=== PATIENT | male | born 1970 | race Asian ===

== ENCOUNTER 2018-05-05 01:27 | Emergency (ER) | payer BC, OTHER ==
--- OUTSIDE RECORDS SUMMARY | 2018-05-05 01:30 | XMS REPORT ---
:1970 Author Organization eClinicalWorks Care Team Providers Name Role Phone Jesus Deluna Provider Role Unavailable Allergies No Known Allergies Problems Problem Type Condition Code Onset Dates Condition Status Problem Drug-induced constipation K59.03 Active Problem Iron deficiency anemia secondary to D50.8 Active inadequate dietary iron intake Problem Dry eyes, bilateral H04.123 Active Problem HTN (hypertension), benign I10 Active Problem GERD without esophagitis K21.9 Active Problem Anemia, unspecified type D64.9 Active Medications No Known Medications Results No Known Results Summary Purpose eClinicalWorks Submission
--- OUTSIDE RECORDS SUMMARY | 2018-05-05 01:30 | XMS REPORT ---
:1970 Author Organization eClinicalWorks Care Team Providers Name Role Phone Mikie Jesus Provider Role Unavailable Allergies No Known Allergies Problems Problem Type Condition Code Onset Dates Condition Status Assessment HTN (hypertension), benign I10 Active Assessment Drug-induced constipation K59.03 Active Assessment GERD without esophagitis K21.9 Active Assessment Dry eyes, bilateral H04.123 Active Problem Drug-induced constipation K59.03 Active Problem Iron deficiency anemia secondary to D50.8 Active inadequate dietary iron intake Problem Dry eyes, bilateral H04.123 Active Problem HTN (hypertension), benign I10 Active Assessment Iron deficiency anemia secondary to D50.8 Active inadequate dietary iron intake Problem GERD without esophagitis K21.9 Active Problem Anemia, unspecified type D64.9 Active Medications Medication Code Code Instructions Start End Status Dosage System Date Date Amitiza [facility] 72861925852 8 MCG Orally MayOct 13, Active 1 capsule Twice a day 2017 with food Amlodipine ND 45245404830 5 MG Orally Once Active 1 tablet Besylate a day Ferrous ND 78407704210 325 (65 Fe) MG May Active 1 tablet Sulfate Orally BID 2017 Omeprazole ND 69747029962 40 MG Orally Active 1 capsule Once a day Restasis ND 61632939880 0.05 % MayOct 13, Active 1 drop into Ophthalmic Twice 2017 2018 affected a day eye Results Name Result Date Reference Range Unit Abnormality Flag CBC W/AUTO DIFF Summary Purpose eClinicalWorks Submission
--- OUTSIDE RECORDS SUMMARY | 2018-05-05 01:30 | XMS REPORT | Clinical Summary ---
:1970 Author Organization [employer] Address [address] [place] [address] Care Team Providers Name Role Phone Jesus Deluna Primary Care Provider Allergies No Known Allergies Medications Medication Sig Dispensed Refills Start Date End Date Status omeprazole (PriLOSEC) Take 40 mg by 0 Active 40 MG capsule mouth daily. amLODIPine (NORVASC) 5 Take 5 mg by 0 Active MG tablet mouth daily. MULTIVIT-MINERALS/FA/LY Take 1 tablet by 0 Active COPENE (ONE-A-DAY MEN'S mouth daily. MULTIVITAMIN ORAL) amLODIPine (NORVASC) 5 Take 5 mg by 0 Active mg tablet mouth daily. Active Problems Problem Noted Date SBO (small bowel obstruction) 11/27/2017 Small bowel obstruction 01/06/2016 Encounters Date Type Specialty Care Team Description 11/26/2017 - Hospital Encounter General Surgery Soy Samaniego SBO (small bowel obstruction) ([facility]) (Primary Dx); 11/28/2017 MD Antoine Generalized abdominal pain; Rahman, Non-intractable vomiting with nausea, unspecified vomiting type Mynor Victoria MD after 05/04/2017 Immunizations Name Dates Previously Given Next Due INFLUENZA QUAD PF 01/24/2016 Social History Tobacco Use Types Packs/Day Years Used Date Never Smoker Smokeless Tobacco: Never Used Alcohol Use Drinks/Week oz/Week Comments No social Sex Assigned at Date Recorded Not on file Job Start Date Occupation Industry Not on file Not on file Not on file Travel History Travel Start Travel End No recent travel history available. Last Filed Vital Signs Vital Sign Reading Time Taken Blood Pressure 137/91 11/28/2017 12:07 PM CDT Pulse 75 11/28/2017 12:07 PM CDT Temperature 36.4 C (97.5 F) 11/28/2017 12:07 PM CDT Respiratory Rate 17 11/28/2017 12:07 PM CDT Oxygen Saturation 97% 11/28/2017 12:07 PM CDT Inhaled Oxygen Concentration - - Weight - - Height 175.3 cm (5' 9") 11/26/2017 9:57 PM CDT Body Mass Index - - Plan of Treatment Health Maintenance Due Date Last Done Comments INFLUENZA VACCINE 09/20/2017 01/24/2016 COLON CANCER SCREENING 2018 SHINGLES VACCINES (#1) 2018 Implants Implanted Type Area Publicity Writer Device Shelf Model / Identifier Expiration Serial / Date Lot Mesh Hrnia Rpr Sepramesh 8x12in Rectngl Cmpst [employer]pe [employer] - [id number] Surgical N/A: [employer] 03/19/2017 [id number] / Implanted: 01/08/2016 (Quantity not on file) Mesh or Abdomen, / Tissue Middle [id number] Barrier Quadrant/No Products n Specific Procedures Procedure Name Priority Date/Time Associated Comments Diagnosis ESTIMATED GFR Routine 11/28/2017 4:00 Results for this AM CDT procedure are in the results section. PHOSPHORUS LEVEL Routine 11/28/2017 4:00 Results for this AM CDT procedure are in the results section. MAGNESIUM LEVEL Routine 11/28/2017 4:00 Results for this AM CDT procedure are in the results section. BASIC METABOLIC PANEL Routine 11/28/2017 4:00 Results for this AM CDT procedure are in the results section. URINALYSIS SCREEN AND Routine 11/27/2017 12:55 Results for this MICROSCOPY, WITH PM CDT procedure are in REFLEX TO CULTURE the results section. URINE CULTURE Routine 11/27/2017 12:55 Results for this PM CDT procedure are in the results section. XR ABDOMEN 2 VW AP W STAT 11/27/2017 9:45 Results for this UPRIGHT AND/OR AM CDT procedure are in DECUBITUS the results section. CT ABDOMEN PELVIS W STAT 11/27/2017 1:26 Results for this CONTRAST AM CDT procedure are in the results section. LACTIC ACID LEVEL, Timed 11/26/2017 11:39 Results for this SEPSIS - NOW AND PM CDT procedure are in REPEAT 2X EVERY 3 the results HOURS section. HC COMPLETE BLD COUNT STAT 11/26/2017 11:25 Results for this W/AUTO DIFF PM CDT procedure are in the results section. ESTIMATED GFR STAT 11/26/2017 10:01 Results for this PM CDT procedure are in the results section. LIPASE LEVEL STAT 11/26/2017 10:01 Results for this PM CDT procedure are in the results section. COMPREHENSIVE STAT 11/26/2017 10:01 Results for this METABOLIC PANEL PM CDT procedure are in the results section. after 05/04/2017 Results Estimated GFR (11/28/2017 4:00 AM CDT)Only the most recent of2 resultswithin the time period is included. Estimated GFR >=90 mL/min/1.73 m2 [facility] DEPARTMENT OF Comment: PATHOLOGY AND GENOMIC CatergoryUnitsInterpretation MEDICINE G1 >=90 Normal or high G2 60-89Mildly decreased E5q45-53Hrsric to moderately decreased O8q63-04Cblshrfmlv to severely decreased G4 15-29Severely decreased G5 <15Kidney failure The eGFR was calculated using the Chronic Kidney Disease Epidemiology Collaboration (CKD-EPI) equation. Interpretation is based on recommendations of the National Kidney Foundation-Kidney Disease Outcomes Quality Initiative (NKF-KDOQI) published in 2014. Specimen Plasma specimen Performing Organization Address City/[facility] Phone Number [facility] DEPARTMENT OF PATHOLOGY AND [address] [place] [address] [facility] Phosphorus level (11/28/2017 4:00 AM CDT) Phosphorus 4.2 2.4 - 4.5 mg/dL [facility] DEPARTMENT OF PATHOLOGY AND GENOMIC MEDICINE Specimen Plasma specimen Performing Organization Address City/[facility] Phone Number [facility] DEPARTMENT OF PATHOLOGY AND [address] [place] [address] [facility] Magnesium level (11/28/2017 4:00 AM CDT) Magnesium 2.1 1.6 - 2.6 mg/dL [facility] DEPARTMENT OF PATHOLOGY AND GENOMIC MEDICINE Specimen Plasma specimen Performing Organization Address [facility] Phone Number [facility] DEPARTMENT OF PATHOLOGY AND [address] [place] [address] [facility] MEDICINE Basic metabolic panel (11/28/2017 4:00 AM CDT) Sodium 137 135 - 148 mEq/L [facility] DEPARTMENT OF PATHOLOGY AND GENOMIC MEDICINE Potassium 3.6 3.5 - 5.0 mEq/L [facility] DEPARTMENT OF PATHOLOGY AND GENOMIC MEDICINE Chloride 101 98 - 112 mEq/L [facility] DEPARTMENT OF PATHOLOGY AND GENOMIC MEDICINE CO2 24 24 - 31 mEq/L [facility] DEPARTMENT OF PATHOLOGY AND GENOMIC MEDICINE Anion gap 12@ANIO 7 - 15 mEq/L [facility] DEPARTMENT OF PATHOLOGY AND GENOMIC MEDICINE BUN 7 6 - 20 mg/dL [facility] DEPARTMENT OF PATHOLOGY AND GENOMIC MEDICINE Creatinine 0.77 0.70 - 1.20 mg/dL [facility] DEPARTMENT OF PATHOLOGY AND GENOMIC MEDICINE Glucose 99 65 - 99 mg/dL [facility] DEPARTMENT OF PATHOLOGY AND GENOMIC MEDICINE Calcium 9.3 8.3 - 10.2 mg/dL [facility] DEPARTMENT OF PATHOLOGY AND GENOMIC MEDICINE Specimen Plasma specimen Performing Organization Address City/State/[facility] Phone Number [facility] DEPARTMENT OF PATHOLOGY AND [address] [place] [address] [facility] Urinalysis screen and microscopy, with reflex to culture (11/27/2017 12:55 PM CDT) Specimen site Random void [facility] DEPARTMENT OF PATHOLOGY AND GENOMIC MEDICINE Color, UA Straw [facility] DEPARTMENT OF PATHOLOGY AND GENOMIC MEDICINE Appearance, UA Clear [facility] DEPARTMENT OF PATHOLOGY AND GENOMIC MEDICINE Specific gravity, UA 1.008 1.001 - 1.035 [facility] DEPARTMENT OF PATHOLOGY AND GENOMIC MEDICINE pH, UA 7.0 5.0 - 8.5 [facility] DEPARTMENT OF PATHOLOGY AND GENOMIC MEDICINE Protein, UA Negative Negative [facility] DEPARTMENT OF PATHOLOGY AND GENOMIC MEDICINE Glucose, UA Negative Negative [facility] DEPARTMENT OF PATHOLOGY AND GENOMIC MEDICINE Ketones, UA Negative Negative [facility] DEPARTMENT OF PATHOLOGY AND GENOMIC MEDICINE Bilirubin, UA Negative Negative [facility] DEPARTMENT OF PATHOLOGY AND GENOMIC MEDICINE Blood, UA Negative Negative [facility] DEPARTMENT OF PATHOLOGY AND GENOMIC MEDICINE Nitrite, UA Negative Negative [facility] DEPARTMENT OF PATHOLOGY AND GENOMIC MEDICINE Urobilinogen, UA <2.0 <2.0 [facility] DEPARTMENT OF PATHOLOGY AND GENOMIC MEDICINE Leukocyte esterase, UA Negative Negative [facility] DEPARTMENT OF PATHOLOGY AND GENOMIC MEDICINE WBC, UA None seen 0 - 1 /HPF [facility] DEPARTMENT OF PATHOLOGY AND GENOMIC MEDICINE RBC, UA None seen 0 - 5 /HPF [facility] DEPARTMENT OF PATHOLOGY AND GENOMIC MEDICINE Bacteria, UA None seen None seen [facility] DEPARTMENT OF PATHOLOGY AND GENOMIC MEDICINE Yeast, UA None seen [facility] DEPARTMENT OF PATHOLOGY AND GENOMIC MEDICINE Yeast with pseudohyphae, UA None seen [facility] DEPARTMENT OF PATHOLOGY AND GENOMIC MEDICINE Specimen Urine Performing Organization Address City/State/Zipcode Phone Number [facility] DEPARTMENT OF PATHOLOGY AND [address] [place] [address] [facility] Urine culture (11/27/2017 12:55 PM CDT) Urine culture SEE COMMENTComment: Bacteriuria [facility] DEPARTMENT OF PATHOLOGY screen negative. AND GENOMIC MEDICINE Performing Organization Address [facility]ode Phone Number [facility] DEPARTMENT OF PATHOLOGY AND [address] [place] [address] GENOMIC MEDICINE XR Abdomen 2 Vw Ap W Upright And/Or Decubitus (11/27/2017 9:45 AM CDT) Narrative Performed At Study:XR ABDOMEN 2 VW AP W UPRIGHT AND OR DECUBITUS [facility] History:Abd painunspecified, SBO COMPARISON:None. IMPRESSION: 4 views of the abdomen. No bowel distention or free air. Contrast is seen within the urinary bladder and renal parenchyma bilaterally. Bones without acute abnormality. [id number] Procedure Note Hm Interface, Radiology Results Incoming - 11/27/2017 10:12 AM CDT Study:XR ABDOMEN 2 VW AP W UPRIGHT AND OR DECUBITUS History:Abd pain unspecified, SBO COMPARISON:None. IMPRESSION: 4 views of the abdomen. No bowel distention or free air. Contrast is seen within the urinary bladder and renal parenchyma bilaterally. Bones without acute abnormality. [id number] Performing Organization Address [facility] Phone Number [facility] [address] [place] [address] CT Abdomen Pelvis W Contrast (11/27/2017 1:26 AM CDT) Narrative Performed At CT ABDOMEN PELVIS W CONTRAST [facility] CLINICAL INDICATION: Abd distension, Abd painunspecified, Nauseavomiting, Hx of SBO TECHNIQUE:Multidetector CT imaging of the abdomen and pelvis was performed following the intravenous administration of iodinated contrast with multiplanar reconstructions.CT imaging was performed with iterative reconstruction technique and/or automated exposure control to reduce radiation dose. COMPARISON:None FINDINGS: LOWER THORAX:Clear. LIVER:Normal. BILIARY:Normal. SPLEEN:Normal. PANCREAS:Normal. ADRENALS:Normal. KIDNEYS:No mass or hydronephrosis. GI: There are small bowel sutures within the right lower quadrant, compatible with prior bowel resection and reanastomosis. There are multiple mildly dilated loops of small bowel within the right lower quadrant and midline lower abdomen without identification of a transition point. There is decompression of the distal loops of small bowel. There are no inflammatory changes of the bowel. VASCULAR:Unremarkable LYMPH NODES:No enlarged lymph nodes in the abdomen or pelvis. PELVIS:The urinary bladder is normal in appearance. BONES:There are no acute osseous abnormalities. OTHER:There is no ascites or pneumoperitoneum. IMPRESSION: Multiple mildly dilated loops of small bowel within the lower abdomen with decompression of the distal loops of small bowel, suggestive of a low-grade small bowel obstruction. A transition point is not identified. [facility]-[id number] Procedure Note Interface, Radiology Results Incoming - 11/27/2017 1:[address] ABDOMEN PELVIS W CONTRAST CLINICAL INDICATION: Abd distension, Abd pain unspecified, Nausea vomiting, Hx of SBO TECHNIQUE: Multidetector CT imaging of the abdomen and pelvis was performed following the intravenous administration of iodinated contrast with multiplanar reconstructions. CT imaging was performed with iterative reconstruction technique and/or automated exposure control to reduce radiation dose. COMPARISON: None FINDINGS: LOWER THORAX: Clear. LIVER: Normal. BILIARY: Normal. SPLEEN: Normal. PANCREAS: Normal. ADRENALS: Normal. KIDNEYS: No mass or hydronephrosis. GI: There are small bowel sutures within the right lower quadrant, compatible with prior bowel resection and reanastomosis. There are multiple mildly dilated loops of small bowel within the right lower quadrant and midline lower abdomen without identification of a transition point. There is decompression of the distal loops of small bowel. There are no inflammatory changes of the bowel. VASCULAR: Unremarkable LYMPH NODES: No enlarged lymph nodes in the abdomen or pelvis. PELVIS: The urinary bladder is normal in appearance. BONES: There are no acute osseous abnormalities. OTHER: There is no ascites or pneumoperitoneum. IMPRESSION: Multiple mildly dilated loops of small bowel within the lower abdomen with decompression of the distal loops of small bowel, suggestive of a low-grade small bowel obstruction. A transition point is not identified. [facility]-[id number] Performing Organization Address City/State/[place] Phone Number [facility] [address] [place] [address] Lactic acid level, SEPSIS - Now and repeat 2x every 3 hours (11/26/2017 11:39 PM CDT) Lactic acid 1.8 0.5 - 2.2 mmol/L [facility] DEPARTMENT OF PATHOLOGY AND GENOMIC MEDICINE Specimen Blood Performing Organization Address City/State/[facility] Phone Number [facility] DEPARTMENT OF PATHOLOGY AND [address] [place] [phone] [facility] CBC with platelet and differential (11/26/2017 11:25 PM CDT) WBC 8.80 4.50 - 11.00 k/uL [facility] DEPARTMENT OF PATHOLOGY AND GENOMIC MEDICINE RBC 4.63 4.40 - 6.00 m/uL [facility] DEPARTMENT OF PATHOLOGY AND GENOMIC MEDICINE HGB 10.9 (L) 14.0 - 18.0 g/dL [facility] DEPARTMENT OF PATHOLOGY AND GENOMIC MEDICINE HCT 37.0 (L) 41.0 - 51.0 % [facility] DEPARTMENT OF PATHOLOGY AND GENOMIC MEDICINE MCV 79.9 (L) 82.0 - 100.0 fL [facility] DEPARTMENT OF PATHOLOGY AND GENOMIC MEDICINE MCH 23.5 (L) 27.0 - 34.0 pg [facility] DEPARTMENT OF PATHOLOGY AND GENOMIC MEDICINE MCHC 29.5 (L) 31.0 - 37.0 g/dL [facility] DEPARTMENT OF PATHOLOGY AND GENOMIC MEDICINE RDW - SD 58.1 (H) 37.0 - 55.0 fL [facility] DEPARTMENT OF PATHOLOGY AND GENOMIC MEDICINE MPV 9.7 8.8 - 13.2 fL [facility] DEPARTMENT OF PATHOLOGY AND GENOMIC MEDICINE Platelet count 338 150 - 400 k/uL [facility] DEPARTMENT OF PATHOLOGY AND GENOMIC MEDICINE Nucleated RBC 0.00 /100 WBC [facility] DEPARTMENT OF PATHOLOGY AND GENOMIC MEDICINE Neutrophils 75.9 (H) 39.0 - 69.0 % [facility] DEPARTMENT OF PATHOLOGY AND GENOMIC MEDICINE Lymphocytes 15.2 (L) 25.0 - 45.0 % [facility] DEPARTMENT OF PATHOLOGY AND GENOMIC MEDICINE Monocytes 7.2 0.0 - 10.0 % [facility] DEPARTMENT OF PATHOLOGY AND GENOMIC MEDICINE Eosinophils 0.7 0.0 - 5.0 % [facility] DEPARTMENT OF PATHOLOGY AND GENOMIC MEDICINE Basophils 0.7 0.0 - 1.0 % [facility] DEPARTMENT OF PATHOLOGY AND GENOMIC MEDICINE Immature granulocytes 0.3Comment: 0.0 - 1.0 % [facility] DEPARTMENT OF "Immature PATHOLOGY AND GENOMIC granulocytes" MEDICINE (promyelocytes, myelocytes, metamyelocytes) Specimen Blood Performing Organization Address City/[facility]/Zipcode Phone Number [facility] DEPARTMENT OF PATHOLOGY AND [address] [place] [address] [facility] Lipase level (11/26/2017 10:01 PM CDT) Lipase 37 13 - 60 U/L [facility] DEPARTMENT OF PATHOLOGY AND GENOMIC MEDICINE Specimen Plasma specimen Performing Organization Address City/[facility] Phone Number [facility] DEPARTMENT OF PATHOLOGY AND [address] [place] [address] [facility] Comprehensive metabolic panel (11/26/2017 10:01 PM CDT) Sodium 136 135 - 148 mEq/L [facility] DEPARTMENT OF PATHOLOGY AND GENOMIC MEDICINE Potassium 4.3 3.5 - 5.0 mEq/L [facility] DEPARTMENT OF PATHOLOGY AND GENOMIC MEDICINE Chloride 98 98 - 112 mEq/L [facility] DEPARTMENT OF PATHOLOGY AND GENOMIC MEDICINE CO2 21 (L) 24 - 31 mEq/L [facility] DEPARTMENT OF PATHOLOGY AND GENOMIC MEDICINE Anion gap 17@ANIO (H) 7 - 15 mEq/L [facility] DEPARTMENT OF PATHOLOGY AND GENOMIC MEDICINE BUN 11 6 - 20 mg/dL [facility] DEPARTMENT OF PATHOLOGY AND GENOMIC MEDICINE Creatinine 0.79 0.70 - 1.20 mg/dL [facility] DEPARTMENT OF PATHOLOGY AND GENOMIC MEDICINE Glucose 108 (H) 65 - 99 mg/dL [facility] DEPARTMENT OF PATHOLOGY AND GENOMIC MEDICINE Calcium 9.7 8.3 - 10.2 mg/dL [facility] DEPARTMENT OF PATHOLOGY AND GENOMIC MEDICINE Protein 7.3 6.3 - 8.3 g/dL [facility] DEPARTMENT OF Comment: PATHOLOGY AND GENOMIC [place] 4.6-7.0 g/dL MEDICINE 1 week 4.4-7.6 g/dL 7 months-1year5.1-7.3 g/dL 1-2 years5.6-7.5 g/dL >3 years6.0-8.0 g/dL 18-150 6.3-8.3 g/dL Albumin 3.7 3.5 - 5.0 g/dL [facility] DEPARTMENT OF PATHOLOGY AND GENOMIC MEDICINE A/G ratio 1.0 0.7 - 3.8 [facility] DEPARTMENT OF PATHOLOGY AND GENOMIC MEDICINE Alkaline phosphatase 54 40 - 129 U/L [facility] DEPARTMENT OF PATHOLOGY AND GENOMIC MEDICINE AST 18 10 - 50 U/L [facility] DEPARTMENT OF PATHOLOGY AND GENOMIC MEDICINE ALT 22 5 - 50 U/L [facility] DEPARTMENT OF PATHOLOGY AND GENOMIC MEDICINE Total bilirubin 0.4 0.0 - 1.2 mg/dL [facility] DEPARTMENT OF PATHOLOGY AND GENOMIC MEDICINE Specimen Plasma specimen Performing Organization Address City/State/Zipcode Phone Number [facility] DEPARTMENT OF PATHOLOGY AND [address] [place] [address] GENOMIC MEDICINE after 05/04/2017 Insurance Payer Benefit Plan / Group Subscriber ID Type Phone Address BCBS BCBS CHOICE PPO/[employer]PL PPO xxxxxxxxxxxx PPO Advance Directives Patient has advance care planning documents on file. For more information, please contact:Colton Ibanez[address] [place] [address]
--- OUTSIDE RECORDS SUMMARY | 2018-05-05 01:30 | XMS REPORT ---
:1970 Author Organization eClinicalWorks Care Team Providers Name Role Phone Jesus Deluna Provider Role Unavailable Allergies, Adverse Reactions, Alerts Substance Reaction Event Type N.K.D.A. Info Not Available Non Drug Allergy Problems Problem Type Condition Code Onset Dates Condition Status Assessment Dry eyes, bilateral H04.123 Active Assessment GERD without esophagitis K21.9 Active Assessment HTN (hypertension), benign I10 Active Problem Drug-induced constipation K59.03 Active Problem Iron deficiency anemia secondary to D50.8 Active inadequate dietary iron intake Problem Dry eyes, bilateral H04.123 Active Assessment Iron deficiency anemia secondary to D50.8 Active inadequate dietary iron intake Assessment Drug-induced constipation K59.03 Active Problem GERD without esophagitis K21.9 Active Problem HTN (hypertension), benign I10 Active Medications Medication Code Code Instructions Start End Status Dosage System Date Date Ferrous [facility] 58825508336 325 (65 Fe) MG Active 1 tablet Sulfate Orally BID Omeprazole [facility] 16206135424 40 MG Orally Active 1 capsule Once a day Amlodipine [facility] 60550522364 5 MG Orally Once Active 1 tablet Besylate a day Restasis [facility] 21547212905 0.05 % Active 1 drop into Ophthalmic Twice affected a day eye Amitiza [facility] 54466192112 8 MCG Orally Active 1 capsule Twice a day with food Results No Known Results Summary Purpose eClinicalWorks Submission
--- OUTSIDE RECORDS SUMMARY | 2018-05-05 01:30 | XMS REPORT ---
:1970 Author Organization eClinicalWorks Care Team Providers Name Role Phone Jesus Deluna Provider Role Unavailable Allergies No Known Allergies Problems Problem Type Condition Code Onset Dates Condition Status Problem Drug-induced constipation K59.03 Active Problem Iron deficiency anemia secondary to D50.8 Active inadequate dietary iron intake Problem Dry eyes, bilateral H04.123 Active Problem GERD without esophagitis K21.9 Active Problem HTN (hypertension), benign I10 Active Medications No Known Medications Results No Known Results Summary Purpose eClinicalWorks Submission
[2018-05-05 02:14] LABS: Absolute Lymphocytes (CBC) 1.6 K/uL (0.7-4.9); Absolute Monocytes 0.6 K/uL (0.1-1.3); Absolute Neutrophil 7.1 K/uL (1.8-8.0); Basophils % 0.3 % (0-1.3); Eosinophils % 0.7 % (0-4.4); Lymphocytes % 16.6 % (15.3-44.8); Monocytes % 6.2 % (3.3-12.3); RBC Red Blood Cell Count 4.52 M/uL (4.33-5.43)
[2018-05-05] MEDS ORDERED: NA CHLORIDE 0.9% 1,000 ML ONE (02:21)
[2018-05-05] MEDS ORDERED: ONDANSETRON 4 MG/2 ML VIAL ONE (02:21)
[2018-05-05 02:27] LABS: ALT/SGPT 23 U/L (12-78); AST/SGOT 11 U/L (15-37); Albumin 3.8 g/dL (3.4-5.0); Alkaline Phosphatase 58 U/L (45-117); BUN Blood Urea Nitrogen 10 mg/dL (7-18); Bicarbonate 25 mmol/L (21-32); Bilirubin Direct 0.2 mg/dL (0-0.2); Bilirubin Total 0.5 mg/dL (0.2-1.0); Glucose Level 123 mg/dL (74-106); Lipase 142 U/L (73-393); Potassium 3.5 mmol/L (3.5-5.1); Protein, Total 7.6 g/dL (6.4-8.2); Sodium Level 138 mmol/L (136-145)
[2018-05-05] MEDS ORDERED: PROMETHAZINE 25 MG/ML VIAL ONE (02:39)
--- NOTE | 2018-05-05 04:39 | ER ---
Nurse's Notes [facility] Name: Kayy Carvajal Age: 48 yrs Sex: Male : 1970 Arrival Date: 05/05/2018 Time: 01:28 Bed 5 Private MD: Diagnosis: Abdominal and pelvic pain;Early SBO Presentation: 05/05 01:35 Presenting complaint: Patient states: that he his having abd pain that is worse in his fc right lower quad. Has not eaten or drank since 1100. Is having nausea and vomiting. Feels very dehydrated. Denies any diarrhea. Hx of small bowel obstructions x 4 with surg. Transition of care: patient was not received from another setting of care. Onset of symptoms was May 04, 2018. Risk Assessment: Do you want to hurt yourself or someone else? Patient reports no desire to harm self or others. Initial Sepsis Screen: Does the patient meet any 2 criteria? No. Patient's initial sepsis screen is negative. Does the patient have a suspected source of infection? No. Patient's initial sepsis screen is negative. Care prior to arrival: None. 01:35 Method Of Arrival: Ambulatory 01:35 Acuity: HOLLEY 3 fc Historical: - Allergies: 01:51 No Known Allergies; fc - Home Meds: 01:51 omeprazole 40 mg Oral cpDR 1 cap once daily [Active]; amlodipine 5 mg tab 1 tab once fc daily [Active]; - PMHx: 01:51 Hypertension; GERD; bowel obstruction; fc - PSHx: 01:51 Bowel resection; Hernia repair; Appendectomy; fc - Immunization history:: Last tetanus immunization: up to date Flu vaccine is not up to date. - Social history:: Smoking status: Patient/guardian denies using tobacco, Patient/guardian denies using alcohol, street drugs. - Ebola Screening: : Patient negative for fever greater than or equal to 101.5 degrees Fahrenheit, and additional compatible Ebola Virus Disease symptoms Patient denies exposure to infectious person Patient denies travel to an Ebola-affected area in the 21 days before illness onset. Screenin:49 Abuse screen: Denies threats or abuse. Nutritional screening: No deficits noted. fc Tuberculosis screening: No symptoms or risk factors identified. Fall Risk None identified. Assessment: 01:56 General: Appears uncomfortable, Behavior is calm, cooperative. Pain: Complains of pain ak1 in right lower quadrant. Neuro: No deficits noted. Cardiovascular: No deficits noted. Respiratory: No deficits noted. GI: Abdomen is round Bowel sounds present X 4 quads. Abdomen is tender to palpation in right lower quadrant. : No signs and/or symptoms were reported regarding the genitourinary system. EENT: No signs and/or symptoms were reported regarding the EENT system. Derm: No signs and/or symptoms reported regarding the dermatologic system. Musculoskeletal: No signs and/or symptoms reported regarding the musculoskeletal system. 02:59 Reassessment: Patient appears in no apparent distress at this time. Patient and/or jd3 family updated on plan of care and expected duration. Pain level reassessed. Patient is alert, oriented x 3, equal unlabored respirations, skin warm/dry/pink. 03:56 Reassessment: pt stated Dr. Rahman at [facility] completed his last GI sx. pt refused ak1 NG tube at this time stating he is not having any pain. 05:40 Reassessment: Patient appears in no apparent distress at this time. Patient and/or jd3 family updated on plan of care and expected duration. Pain level reassessed. Patient is alert, oriented x 3, equal unlabored respirations, skin warm/dry/pink. report given to EMS for transfer. Vital Signs: 01:35 BP 155 / 106; Pulse 90; Resp 18; Temp 98.1(O); Pulse Ox 100% on R/A; Weight 72.57 kg fc (R); Height 5 ft. 8 in. (172.72 cm) (R); Pain 4/10; 02:28 BP 139 / 96; Pulse 85; Resp 18; Pulse Ox 97% on R/A; ak1 03:45 BP 145 / 92; Pulse 89; Resp 16; Pulse Ox 97% on R/A; ak1 04:40 BP 145 / 96; Pulse 80; Resp 16; Pulse Ox 97% on R/A; ak1 05:39 BP 131 / 99; Pulse 74; Resp 14 S; Pulse Ox 98% on R/A; jd3 01:35 Body Mass Index 24.33 (72.57 kg, 172.72 cm) ED Course: 01:28 Patient arrived in ED. am2 01:28 Prabhjot Celis MD is Attending Physician. kdr 01:35 Arm band placed on Patient placed in an exam room, on a stretcher. fc 01:48 Triage completed. fc 01:49 Patient has correct armband on for positive identification. Placed in gown. Bed in low fc position. Call light in reach. Pulse ox on. NIBP on. 01:49 No provider procedures requiring assistance completed. fc 02:00 Missed attempt(s): 22 gauge Bleeding controlled, band aid applied, catheter tip intact. oe 02:00 Inserted saline lock: 20 gauge in right hand, using aseptic technique. Blood collected. oe 02:05 Jayson Phillips, TERRY is Primary Nurse. jd3 02:45 Radiology exam delayed due to IV insertion attempt and/or patient not having nj appropriate IV at this time. 02:55 Inserted saline lock: 20 gauge in right forearm, using aseptic technique. jd3 03:[address] via stretcher. nj 03:18 CT Abd/Pelvis - W/Contrast In Process Unspecified. EDMS 05:38 Patient transferred, IV remains in place. jd3 Administered Medications: 02:21 Drug: Zofran 4 mg Route: IVP; Site: right hand; jd3 04:42 Follow up: Response: No adverse reaction ak1 02:22 Drug: NS 0.9% 1000 ml Route: IV; Rate: 1 bolus; Site: right hand; jd3 05:31 Follow up: Response: No adverse reaction; IV Status: Completed infusion; IV Intake: jd3 1000ml 02:42 Drug: Phenergan 12.5 mg Route: IVP; Site: right hand; jd3 04:42 Follow up: Response: No adverse reaction; Nausea is decreased ak1 05:14 Drug: Zosyn 3.375 grams Route: IVPB; Infused Over: 60 mins; Site: right hand; jd3 05:38 Follow up: IV Status: Infusion continued upon transfer jd3 05:30 Drug: vancoMYCIN 1 grams Route: IVPB; Infused Over: 2 hrs; Site: right forearm; jd3 05:39 Follow up: Response: No adverse reaction; IV Status: Infusion continued upon transfer jd3 Intake: 05:31 IV: 1000ml; Total: 1000ml. jd3 Outcome: 04:39 ER care complete, transfer ordered by . kdr 05:36 Transferred by ground EMS to [facility], Transfer form completed. X-rays jd3 sent w/ patient. Note: report given by Reyna RN to Tamia nurse for [id number] 05:36 Condition: stable 05:36 Instructed on the need for transfer, Demonstrated understanding of instructions. 05:51 Patient left the ED. jd3 Signatures: Dispatcher [employer] EDMS Prabhjot Celis MD MD kdr Chretien, Felicia, RN RN fc Krenek, Amber, RN RN ak1 Jack Alanis Orlando oe Moreno, Amanda am2 Davies, Jonathon, RN RN jd3
--- NOTE | 2018-05-05 04:39 | EDPHYS ---
Physician Documentation [facility] Name: Kayy Carvajal Age: 48 yrs Sex: Male : 1970 Arrival Date: 05/05/2018 Time: 01:28 Bed 5 Private MD: ED Physician Prabhjot Celis HPI: 05/05 02:09 This 48 yrs old Male presents to ER via Ambulatory with complaints of Abdominal kdr Pain. 02:09 The patient presents with abdominal pain right lower quadrant. Onset: The kdr symptoms/episode began/occurred suddenly, at 11:00. The symptoms do not radiate. Associated signs and symptoms: Pertinent positives: nausea and vomiting, diarrhea, Pertinent negatives: blood in stools, chest pain, headache, hematuria, palpitations, testicular pain, vomiting blood. The symptoms are described as achy, crampy, intermittent, vague, waxing/waning. Modifying factors: The symptoms are alleviated by nothing, the symptoms are aggravated by breathing deeply, movement, pressure, touching the area. Severity of pain: At its worst the pain was moderate just prior to arrival, in the emergency department the pain is unchanged. The patient has experienced similar episodes in the past, multiple times, today's symptoms are similar. The patient has not recently seen a physician. Historical: - Allergies: 01:51 No Known Allergies; fc - Home Meds: 01:51 omeprazole 40 mg Oral cpDR 1 cap once daily [Active]; amlodipine 5 mg tab 1 tab once fc daily [Active]; - PMHx: 01:51 Hypertension; GERD; bowel obstruction; fc - PSHx: 01:51 Bowel resection; Hernia repair; Appendectomy; fc - Immunization history:: Last tetanus immunization: up to date Flu vaccine is not up to date. - Social history:: Smoking status: Patient/guardian denies using tobacco, Patient/guardian denies using alcohol, street drugs. - Ebola Screening: : Patient negative for fever greater than or equal to 101.5 degrees Fahrenheit, and additional compatible Ebola Virus Disease symptoms Patient denies exposure to infectious person Patient denies travel to an Ebola-affected area in the 21 days before illness onset. ROS: 02:09 Constitutional: Negative for fever, chills, and weight loss, Eyes: Negative for injury, kdr pain, redness, and discharge, ENT: Negative for injury, pain, and discharge, Neck: Negative for injury, pain, and swelling, Cardiovascular: Negative for chest pain, palpitations, and edema, Respiratory: Negative for shortness of breath, cough, wheezing, and pleuritic chest pain, Back: Negative for injury and pain, : Negative for injury, bleeding, discharge, and swelling, MS/Extremity: Negative for injury and deformity, Skin: Negative for injury, rash, and discoloration, Neuro: Negative for headache, weakness, numbness, tingling, and seizure activity. Psych: Negative for depression, anxiety, suicide ideation, homicidal ideation, and hallucinations, Allergy/Immunology: Negative for hives, rash, and allergies, Endocrine: Negative for neck swelling, polydipsia, polyuria, polyphagia, and marked weight changes, Hematologic/Lymphatic: Negative for swollen nodes, abnormal bleeding, and unusual bruising. 02:09 Abdomen/GI: Positive for abdominal pain, nausea, vomiting, and diarrhea, abdominal cramps, Negative for constipation, dysphagia, hematemesis. Exam: 02:09 Constitutional: This is a well developed, well nourished patient who is awake, alert, kdr and in no acute distress. Head/Face: Normocephalic, atraumatic. Eyes: Pupils equal round and reactive to light, extra-ocular motions intact. Lids and lashes normal. Conjunctiva and sclera are non-icteric and not injected. Cornea within normal limits. Periorbital areas with no swelling, redness, or edema. Neck: Trachea midline, no thyromegaly or masses palpated, and no cervical lymphadenopathy. Supple, full range of motion without nuchal rigidity, or vertebral point tenderness. No Meningismus. Chest/axilla: Normal chest wall appearance and motion. Nontender with no deformity. No lesions are appreciated. Cardiovascular: Regular rate and rhythm with a normal S1 and S2. No gallops, murmurs, or rubs. Normal PMI, no JVD. No pulse deficits. Respiratory: Lungs have equal breath sounds bilaterally, clear to auscultation and percussion. No rales, rhonchi or wheezes noted. No increased work of breathing, no retractions or nasal flaring. Back: No spinal tenderness. No costovertebral tenderness. Full range of motion. Skin: Warm, dry with normal turgor. Normal color with no rashes, no lesions, and no evidence of cellulitis. MS/ Extremity: Pulses equal, no cyanosis. Neurovascular intact. Full, normal range of motion. Neuro: Awake and alert, GCS 15, oriented to person, place, time, and situation. Cranial nerves II-XII grossly intact. Motor strength 5/5 in all extremities. Sensory grossly intact. Cerebellar exam normal. Normal gait. Psych: Awake, alert, with orientation to person, place and time. Behavior, mood, and affect are within normal limits. 02:09 Abdomen/GI: Inspection: abdomen appears normal, Bowel sounds: active, all quadrants, diminished, in all quadrants, Palpation: soft, mild abdominal tenderness, in the right lower quadrant, mass, is not appreciated, rebound tenderness, is not appreciated, involuntary guarding, is not appreciated. Vital Signs: 01:35 BP 155 / 106; Pulse 90; Resp 18; Temp 98.1(O); Pulse Ox 100% on R/A; Weight 72.57 kg fc (R); Height 5 ft. 8 in. (172.72 cm) (R); Pain 4/10; 02:28 BP 139 / 96; Pulse 85; Resp 18; Pulse Ox 97% on R/A; ak1 03:45 BP 145 / 92; Pulse 89; Resp 16; Pulse Ox 97% on R/A; ak1 04:40 BP 145 / 96; Pulse 80; Resp 16; Pulse Ox 97% on R/A; ak1 05:39 BP 131 / 99; Pulse 74; Resp 14 S; Pulse Ox 98% on R/A; jd3 01:35 Body Mass Index 24.33 (72.57 kg, 172.72 cm) MDM: 02:09 Data reviewed: vital signs, nurses notes, lab test result(s), radiologic studies. kdr Counseling: I had a detailed discussion with the patient and/or guardian regarding: the historical points, exam findings, and any diagnostic results supporting the discharge/admit diagnosis, lab results, radiology results. 04:39 Patient medically screened. kdr 05/05 01:57 Order name: Basic Metabolic Panel; Complete Time: 03:06 kdr 05/05 01:57 Order name: CBC with Diff; Complete Time: 03:06 kdr 05/05 01:57 Order name: Creatinine for Radiology; Complete Time: 03:06 kdr 05/05 01:57 Order name: Hepatic Function; Complete Time: 03:06 kdr 05/05 01:57 Order name: Lipase; Complete Time: 03:06 kdr 05/05 02:08 Order name: CT Abd/Pelvis - W/Contrast kdr 05/05 01:57 Order name: IV Saline Lock; Complete Time: 02:00 kdr 05/05 01:57 Order name: Labs collected and sent; Complete Time: 02:21 kdr Administered Medications: 02:21 Drug: Zofran 4 mg Route: IVP; Site: right hand; jd3 04:42 Follow up: Response: No adverse reaction ak1 02:22 Drug: NS 0.9% 1000 ml Route: IV; Rate: 1 bolus; Site: right hand; jd3 05:31 Follow up: Response: No adverse reaction; IV Status: Completed infusion; IV Intake: jd3 1000ml 02:42 Drug: Phenergan 12.5 mg Route: IVP; Site: right hand; jd3 04:42 Follow up: Response: No adverse reaction; Nausea is decreased ak1 05:14 Drug: Zosyn 3.375 grams Route: IVPB; Infused Over: 60 mins; Site: right hand; jd3 05:38 Follow up: IV Status: Infusion continued upon transfer jd3 05:30 Drug: vancoMYCIN 1 grams Route: IVPB; Infused Over: 2 hrs; Site: right forearm; jd3 05:39 Follow up: Response: No adverse reaction; IV Status: Infusion continued upon transfer jd3 Disposition: 05/05/18 04:39 Transfer ordered to [facility]. Diagnosis are Abdominal and pelvic pain, Early SBO. - Reason for transfer: Higher level of care. - Accepting physician is Taoism. - Condition is Fair. - Problem is an acute exacerbation. - Symptoms have improved. Signatures: Dispatcher [employer] EDPrabhjot Hernandez MD MD kdr Renetta Polo RN RN fc Davies, Jonathon, RN RN jd3 Krenek, Amber RN ak1 Corrections: (The following items were deleted from the chart) 05:51 04:39 05/05/2018 04:39 Transfer ordered to [facility]. Diagnosis is jd3 Abdominal and pelvic pain; Early SBO. Reason for transfer: Higher level of care. Accepting physician is Taoism. Condition is Fair. Problem is an acute exacerbation. Symptoms have improved. kdr
[2018-05-05] MEDS ORDERED: VANCOMYCIN 1 GM/VIAL ONE (05:13)
[2018-05-05] MEDS ORDERED: PIPER/TAZO/NS 3.375gm 3.375 GM/100 ML BAG ONE (05:14)
[2018-05-05] MEDS ORDERED: NA CHLORIDE 0.9% 250 ML ONE (05:15)
[2018-05-05 05:56] VITALS: TEMP 98.1
[2018-05-05 06:00] VITALS: BP 131/99; O2SAT 98
--- NOTE | 2018-05-05 12:09 | RAD REPORT ---
EXAM DESCRIPTION: CT Abdomen and Pelvis With Intravenous Contrast CLINICAL HISTORY: The patient is 48 years old and is Male; ABD PAIN TECHNIQUE: Axial computed tomography images of the abdomen and pelvis with intravenous contrast. S agittal and coronal reformatted images were created and reviewed. This CT exam was performed using one or more of the following dose reduction techniques: automated exposure control, adjustment of t he mA and/or kV according to patient size, and/or use of iterative reconstruction technique. COMPARISON: No relevant prior studies available. FINDINGS: Lung bases: Unremarkable. No mass. No consolidation. ABDOMEN: Liver: There is a diffuse decrease in hepatic parenchymal density, consistent with fatty infiltr ation. Gallbladder and bile ducts: No calcified stones. No ductal dilation. Pancreas: No ductal dilation. No mass. Spleen: Unremarkable. Adrenals: Unremarkable. No mass. Kidneys and ureters: Unremarkable. No solid mass. No hydronephrosis. Stomach and bowel: The stomach is decompressed. The proximal small bowel is normal in caliber. S everal small bowel loops within the right abdomen are dilated and fluid-filled with a transition poin t at the level of anastomosis. The remainder of the small bowel is normal in caliber. The colon is fi lled with liquid stool. PELVIS: Appendix: No findings to suggest acute appendicitis. Bladder: Unremarkable. No mass. Reproductive: Unremarkable as visualized. ABDOMEN and PELVIS: Intraperitoneal space: Unremarkable. No free air. No significant fluid collection. Bones/joints: No acute fracture. Soft tissues: Midline abdominal incision is present. Vasculature: Unremarkable. No abdominal aortic aneurysm. Lymph nodes: Unremarkable. No enlarged lymph nodes. IMPRESSION: Findings suggestive of a small bowel ileus/developing obstruction with transition near t he anastomosis in the right abdomen. Electronically signed by: Soraya Greene MD 05/05/2018 3:32 AM CDT Due to temporary technical issues with the PACS/Fluency reporting system, reports are being signed by the in house radiologist as a courtesy to ensure prompt reporting. The interpreting radiologist is f ully responsible for the content of the report.
== END 2018-05-05 05:51 | disposition short-term general hospital (02) ==
LOC: ER 01:27
DX: K56.609 Unspecified intestinal obstruction, unspecified as to partial versus complete obstruction (principal); I10 Essential (primary) hypertension; K21.9 Gastro-esophageal reflux disease without esophagitis
CPT/HCPCS: 36415; 74177; 80048; 80076; 83690; 85025; 99285; J2405; J2543; J2550; J7030

== ENCOUNTER 2018-12-23 19:35 | Emergency (ER) | payer BC ==
[2018-12-23] MEDS ORDERED: DIPHENHYDRAMINE 50 MG/ML VIAL ONE (19:39)
[2018-12-23] MEDS ORDERED: FAMOTIDINE 20 MG/2 ML VIAL IV ONE (19:39)
[2018-12-23] MEDS ORDERED: METHYLPREDNISOLONE 125 MG INJ ONE (19:39)
[2018-12-23] MEDS ORDERED: NA CHLORIDE 0.9% 1,000 ML ONE (19:39)
[2018-12-23 20:02] LABS: Absolute Lymphocytes (CBC) 1.9 K/uL (0.7-4.9); Basophils % 0.6 % (0-1.3); Hematocrit 42.5 % (39.6-49.0); Lymphocytes % 26.1 % (15.3-44.8); MPV 7.9 fL (7.6-11.3); RBC Red Blood Cell Count 4.71 M/uL (4.33-5.43)
[2018-12-23 20:49] LABS: ALT/SGPT 37 U/L (12-78); AST/SGOT 29 U/L (15-37); Alkaline Phosphatase 62 U/L (45-117); BUN Blood Urea Nitrogen 7 mg/dL (7-18); Bicarbonate 26 mmol/L (21-32); Bilirubin Total 0.6 mg/dL (0.2-1.0); Glucose Level 98 mg/dL (74-106); Potassium 3.5 mmol/L (3.5-5.1); Protein, Total 6.8 g/dL (6.4-8.2); Sodium Level 139 mmol/L (136-145)
--- NOTE | 2018-12-23 21:53 | ER ---
Nurse's Notes [facility] Name: Kayy Carvajal Age: 48 yrs Sex: Male : 1970 Arrival Date: 12/23/2018 Time: 19:37 Bed 6 Private MD: Diagnosis: Sialoadenitis, unspecified Presentation: 12/23 19:39 Presenting complaint: Patient states: I was eating some food about 5 mins ago and la1 started to feel like my throat is closing. Transition of care: patient was not received from another setting of care. Onset of symptoms was December 23, 2018. Risk Assessment: Do you want to hurt yourself or someone else? Patient reports no desire to harm self or others. Initial Sepsis Screen: Does the patient meet any 2 criteria? No. Patient's initial sepsis screen is negative. Does the patient have a suspected source of infection? No. Patient's initial sepsis screen is negative. Care prior to arrival: None. 19:39 Method Of Arrival: Ambulatory la1 19:39 Acuity: HOLLEY 2 la1 Triage Assessment: 20:08 General: Appears in no apparent distress. Respiratory: Onset: The symptoms/episode ak1 began/occurred suddenly, the patient has mild shortness of breath. Historical: - Allergies: 19:41 No Known Allergies; la1 - PMHx: 19:41 bowel obstruction; GERD; Hypertension; MICHELE; la1 - Immunization history:: Adult Immunizations up to date. - Social history:: Smoking status: Patient/guardian denies using tobacco. - Ebola Screening: : No symptoms or risks identified at this time. Screenin:42 Abuse screen: Denies threats or abuse. Denies injuries from another. Nutritional rr5 screening: No deficits noted. Tuberculosis screening: No symptoms or risk factors identified. Fall Risk IV access (20 points). Total Sesay Fall Scale indicates No Risk (0-24 pts). Assessment: 20:06 General: Appears in no apparent distress. comfortable, Behavior is calm, cooperative, ak1 anxious. Pain: Denies pain. Neuro: Level of Consciousness is awake, alert, obeys commands. Cardiovascular: No deficits noted. Respiratory: Airway is patent Respiratory effort is even, unlabored, Breath sounds are clear Parent/caregiver reports the patient having pt c/o throat "closing feeling" after eating vegetables. pt with hx of anemia and bowel obstruction only. pt denies any allergies. GI: No signs and/or symptoms were reported involving the gastrointestinal system. : No signs and/or symptoms were reported regarding the genitourinary system. EENT: Throat is clear. Derm: No signs and/or symptoms reported regarding the dermatologic system. Musculoskeletal: No signs and/or symptoms reported regarding the musculoskeletal system. 20:08 Cardiovascular: Rhythm is regular. ak1 20:30 Reassessment: Patient appears in no apparent distress at this time. Patient is alert, rr5 oriented x 3, equal unlabored respirations, skin warm/dry/pink. resting breathing spontaneously at room air. no complaints made. 21:43 Reassessment: Patient appears in no apparent distress at this time. Patient and/or ak1 family updated on plan of care and expected duration. Pain level reassessed. Patient is alert, oriented x 3, equal unlabored respirations, skin warm/dry/pink. Michael SPENCER at bedside with family. pt resp even and unlabored. will continue to monitor. 22:24 Reassessment: pt called from home inquiring about IV antibiotics. Pt was informed he ak1 could return to ER and see a different provider as to his has left for the night. pt informed to return to ER if condition worsened. pt verbalized understanding, Charge nurse and ERP notified. . Vital Signs: 19:41 BP 174 / 112; Pulse 97; Resp 16; Temp 98.4; Pulse Ox 100% on R/A; Weight 72.12 kg; la1 Height 5 ft. 9 in. (175.26 cm); 20:06 BP 167 / 107; Pulse 74; Resp 16; Pulse Ox 98% on R/A; ak1 20:39 BP 151 / 95; Pulse 79; Resp 19; Pulse Ox 98% on R/A; rr5 21:59 BP 149 / 99; Pulse 88; Resp 16; Pulse Ox 98% on R/A; Pain 0/10; ak1 19:41 Body Mass Index 23.48 (72.12 kg, 175.26 cm) la1 ED Course: 19:37 Patient arrived in ED. cl3 19:38 Sarath Guadarrama MD is Attending Physician. tw4 19:40 Triage completed. la1 19:42 Arm band placed on left wrist. la1 19:42 Patient has correct armband on for positive identification. Placed in gown. Bed in low ak1 position. Call light in reach. 19:42 No provider procedures requiring assistance completed. IV discontinued, intact, ak1 bleeding controlled, No redness/swelling at site. Pressure dressing applied. 19:45 Reyna Cardenas, RN is Primary Nurse. ak1 19:45 Inserted saline lock: 20 gauge in right forearm, using aseptic technique. Blood jb5 collected. 19:46 Michael Beckham PA is PHCP. ricco 20:37 Head of bed lowered. Patient requested more blankets and a pillow, both were given. jb5 Lights were turned out and patient was comfortable resting. . 20:56 CT completed. Patient tolerated procedure well. Patient moved back from CT. bq 21:04 CT Soft Tissue Neck W/contr In Process Unspecified. EDMS 21:52 Kylie Mcgregor MD is Referral Physician. ricco Administered Medications: 19:45 Drug: SOLU-Medrol 125 mg Route: IVP; Site: right forearm; ak1 20:38 Follow up: Response: No adverse reaction; Marked relief of symptoms rr5 19:45 Drug: Pepcid 20 mg Route: IVP; Site: right forearm; ak1 20:38 Follow up: Response: No adverse reaction; Marked relief of symptoms rr5 19:45 Drug: Benadryl 25 mg Route: IVP; Site: right forearm; ak1 20:38 Follow up: Response: No adverse reaction; Marked relief of symptoms rr5 19:45 Drug: NS 0.9% 1000 ml Route: IV; Rate: 1 bolus; Site: right forearm; ak1 20:30 Follow up: Response: No adverse reaction; IV Status: Completed infusion; IV Intake: rr5 1000ml Intake: 20:30 IV: 1000ml; Total: 1000ml. rr5 Outcome: 19:42 Discharged to home ambulatory, with family. ak1 19:42 Condition: improved 19:42 Discharge instructions given to patient, family, Instructed on discharge instructions, follow up and referral plans. medication usage, Demonstrated understanding of instructions, follow-up care, medications, Prescriptions given X 1. 21:52 Discharge ordered by . ricco 22:01 Patient left the ED. ak1 Signatures: Dispatcher [employer] EDMS MicMichael shirley PA PA jmm Quilty, Betty bq Attema, Lee RN RN la1 Reyna Cardenas RN RN ak1 Tamia Carlisle5 Sarath Guadarrama MD MD tw4 Mark Henderson RN RN rr5 Alex, Hortencia cl3
--- NOTE | 2018-12-23 21:54 | EDPHYS ---
Physician Documentation [facility] Name: Kayy Carvajal Age: 48 yrs Sex: Male : 1970 Arrival Date: 12/23/2018 Time: 19:37 Bed 6 Private MD: ED Physician Sarath Guadarrama HPI: 12/23 19:41 This 48 yrs old Male presents to ER via Ambulatory with complaints of Breathing jmm Difficulty. 19:41 The patient has shortness of breath at rest. Onset: The symptoms/episode began/occurred jmm just prior to arrival. Duration: The symptoms are continuous. This is a 48 year old male with a history of bowel obstruction, GERD that presents to the ED with complaints of throat swelling after eating. Denies abdominal pain, vomiting. . Denies known allergy. Historical: - Allergies: 19:41 No Known Allergies; la1 - PMHx: 19:41 bowel obstruction; GERD; Hypertension; MICHELE; la1 - Immunization history:: Adult Immunizations up to date. - Social history:: Smoking status: Patient/guardian denies using tobacco. - Ebola Screening: : No symptoms or risks identified at this time. ROS: 19:41 Constitutional: Negative for fever, chills, and weight loss. jmm 19:41 Abdomen/GI: Negative for abdominal pain, nausea, vomiting, diarrhea, and constipation. 19:41 ENT: Positive for sore throat. 19:41 Neck: Positive for swelling. 19:41 Respiratory: Positive for shortness of breath. 19:41 All other systems are negative. Exam: 19:41 Constitutional: This is a well developed, well nourished patient who is awake, alert, jmm and in no acute distress. Head/Face: atraumatic. Eyes: EOMI, no conjunctival erythema appreciated ENT: Moist Mucus Membranes 19:41 Chest/axilla: Normal chest wall appearance and motion. Cardiovascular: Regular rate and rhythm. No edema appreciated Respiratory: Normal respirations, no respiratory distress appreciated 19:41 ENT: Posterior pharynx: is normal. 19:41 Neck: right sided submandibular swelling is appreciated. 19:41 Abdomen/GI: Inspection: abdomen appears normal, Bowel sounds: normal, Palpation: abdomen is soft and non-tender. 19:41 Back: ROM is normal. 19:41 Musculoskeletal/extremity: ROM: intact in all extremities. 19:41 Skin: Appearance: Color: normal in color. 19:41 Neuro: Orientation: is normal, Mentation: is normal, Memory: is normal. 19:41 Psych: Behavior/mood is pleasant, cooperative. Vital Signs: 19:41 BP 174 / 112; Pulse 97; Resp 16; Temp 98.4; Pulse Ox 100% on R/A; Weight 72.12 kg; la1 Height 5 ft. 9 in. (175.26 cm); 20:06 BP 167 / 107; Pulse 74; Resp 16; Pulse Ox 98% on R/A; ak1 20:39 BP 151 / 95; Pulse 79; Resp 19; Pulse Ox 98% on R/A; rr5 21:59 BP 149 / 99; Pulse 88; Resp 16; Pulse Ox 98% on R/A; Pain 0/10; ak1 19:41 Body Mass Index 23.48 (72.12 kg, 175.26 cm) la1 MDM: 19:48 Patient medically screened. [facility] 21:51 Data reviewed: vital signs, nurses notes, lab test result(s), radiologic studies, CT [facility] scan. ED course: Ct findings showing sialdenitis. Patient prescribed oral antibiotics. Advised to follow up with ENT and otherwise given strict return precautions. Patient states feeling better. . 12/23 19:47 Order name: CBC with Diff; Complete Time: 20:10 [facility] 12/23 19:47 Order name: Creatinine for Radiology; Complete Time: 20:37 [facility] 12/23 19:47 Order name: CT Soft Tissue Neck W/contr [facility] 12/23 19:47 Order name: CMP; Complete Time: 20:54 [facility] Administered Medications: 19:45 Drug: SOLU-Medrol 125 mg Route: IVP; Site: right forearm; ak1 20:38 Follow up: Response: No adverse reaction; Marked relief of symptoms rr5 19:45 Drug: Pepcid 20 mg Route: IVP; Site: right forearm; ak1 20:38 Follow up: Response: No adverse reaction; Marked relief of symptoms rr5 19:45 Drug: Benadryl 25 mg Route: IVP; Site: right forearm; ak1 20:38 Follow up: Response: No adverse reaction; Marked relief of symptoms rr5 19:45 Drug: NS 0.9% 1000 ml Route: IV; Rate: 1 bolus; Site: right forearm; ak1 20:30 Follow up: Response: No adverse reaction; IV Status: Completed infusion; IV Intake: rr5 1000ml Disposition: 12/24 05:41 Co-signature as Attending Physician, Sarath Guadarrama MD I agree with the assessment and tw4 plan of care. Disposition: 12/23/18 21:52 Discharged to Home. Impression: Sialoadenitis, unspecified. - Condition is Stable. - Discharge Instructions: Salivary Gland Infection, Salivary Stone. - Prescriptions for Augmentin 875- 125 mg Oral Tablet - take 1 tablet by ORAL route every 12 hours for 10 days; 20 tablet. - Medication Reconciliation Form, Thank You Letter, Antibiotic Education, Prescription Opioid Use form. - Follow up: Kylie Mcgregor MD; When: 2 - 3 days; Reason: Recheck today's complaints, Continuance of care, Re-evaluation by your physician. Signatures: Dispatcher [employer] EDMS Michael Beckham PA PA jmm Attema, Lee RN RN la1 Reyna Cardenas RN RN ak1 Sarath Guadarrama MD MD tw4 Mark Henderson RN rr5 Corrections: (The following items were deleted from the chart) 12/23 22:01 21:52 12/23/2018 21:52 Discharged to Home. Impression: Sialoadenitis, unspecified. ak1 Condition is Stable. Forms are Medication Reconciliation Form, Thank You Letter, Antibiotic Education, Prescription Opioid Use. Follow up: Kylie Mcgregor; When: 2 - 3 days; Reason: Recheck today's complaints, Continuance of care, Re-evaluation by your physician. ricco
[2018-12-23 23:03] VITALS: TEMP 98.4
[2018-12-23 23:04] VITALS: O2SAT 98
[2018-12-23 23:06] VITALS: BP 149/99
--- NOTE | 2018-12-24 12:08 | RAD REPORT ---
EXAM DESCRIPTION: Soft Tissue Neck W/Contr CLINICAL HISTORY: 48 years Male submandibular swelling, right side COMPARISON: None. TECHNIQUE: Contiguous axial images obtained through the neck following IV contrast. Reformatted imag es obtained. This exam was performed according to our department optimization program which includes automated exp osure control, adjustment of the mA and/or kv according to patient size and/or use of iterative recon struction technique. FINDINGS: The visualized intracranial structures and post septal orbits appear grossly unremarkable. The parotid glands and thyroid gland appear unremarkable. The bilateral submandibular glands are slig htly heterogeneous. There is mild stranding in the fatty tissues around the submandibular glands whic h appears fairly symmetric in appearance. These findings may be normal but clinical correlation is re commended to exclude the possibility of sialoadenitis. No soft tissue abscess collections are identif ied. The lung apices are clear. The pharynx and larynx appear unremarkable. Scattered lymph nodes in the neck likely reactive. No fluid or significant mucosal thickening in the visualized paranasal sinuses. Mild atherosclerotic changes of the carotid bifurcations. IMPRESSION: The bilateral submandibular glands are slightly heterogeneous. There is mild stranding i n the fatty tissues around the submandibular glands which appears fairly symmetric in appearance. The se findings may be normal but clinical correlation is recommended to exclude the possibility of sialo adenitis. No soft tissue abscess collections are identified. Electronically signed by: Yonathan Jimenez MD 12/23/2018 9:30 PM [employer]SEMBL[employer]ING [employer]PER[employer]OR Due to temporary technical issues with the PACS/Fluency reporting system, reports are being signed by the in house radiologist as a courtesy to ensure prompt reporting. The interpreting radiologist is f ully responsible for the content of the report.
== END 2018-12-23 22:01 | disposition home or self-care (01) ==
LOC: ER 19:35
DX: K11.20 Sialoadenitis, unspecified (principal)
CPT/HCPCS: 96361; 85025; 36415; 80053; 70491; 96375; 96374; 99284; Q9967; J1200; J7030; J2930

== ENCOUNTER 2020-11-16 00:30 | Emergency (ER) | payer BC ==
[2020-11-16] MEDS ORDERED: KETOROLAC 30 MG/ML INJ ONE (01:31)
[2020-11-16] MEDS ORDERED: FAMOTIDINE 20 MG/2 ML VIAL IV ONE (01:31)
[2020-11-16] MEDS ORDERED: DIAZEPAM 5 MG TABLET ONE (02:14)
--- NOTE | 2020-11-16 02:25 | EDPHYS ---
Physician Documentation [facility] Name: Kayy Carvajal Age: 50 yrs Sex: Male : 1970 Arrival Date: 11/16/2020 Time: 00:34 Bed 5 Private MD: ED Physician Gael Ureña HPI: 11/16 01:37 This 50 yrs old Male presents to ER via Ambulatory with complaints of Sharp pain jmm in back when inhaling. 01:37 Onset: The symptoms/episode began/occurred gradually, 1 week(s) ago. The pain does not jmm radiate. Associated signs and symptoms: Pertinent positives: SOB. Is a 50-year-old male with history of GERD, hypertension the presents emerged part with complaints of right thoracic back pain beginning few days ago. Patient states he initially noticed some swelling there or a mass of some sort. Patient states pain intensified this evening with increased pain on deep inspiration. Patient states the pain makes him feel short of breath.. Historical: - Home Meds: 00:46 amlodipine 5 mg tab 1 tab once daily [Active]; omeprazole 40 mg Oral cpDR 1 cap once lh3 daily [Active]; - PMHx: 00:46 GERD; Hypertension; MICHELE; bowel obstruction; lh3 - Immunization history:: Client reports receiving the 2nd dose of the Covid vaccine, Date received: April 2020. - Social history:: Smoking status: Patient denies any tobacco usage or history of. ROS: 01:37 Constitutional: Negative for fever, chills, and weight loss, Cardiovascular: Negative jmm for chest pain, palpitations, and edema. 01:37 Respiratory: Positive for shortness of breath. 01:37 Back: Positive for pain with movement. 01:37 All other systems are negative. Exam: 01:37 Constitutional: This is a well developed, well nourished patient who is awake, alert, jmm and in no acute distress. Head/Face: atraumatic. Eyes: EOMI, no conjunctival erythema appreciated ENT: Moist Mucus Membranes Neck: Trachea midline, Supple Chest/axilla: Normal chest wall appearance and motion. Cardiovascular: Regular rate and rhythm. No edema appreciated 01:37 Skin: General appearance color normal MS/ Extremity: Moves all extremities, no obvious deformities appreciated, no edema noted to the lower extremities Neuro: Awake and alert, normal gait Psych: Behavior is normal, Mood is normal, Patient is cooperative and pleasant 01:37 Respiratory: the patient does not display signs of respiratory distress, Respirations: normal, Breath sounds: are clear throughout. 01:37 Back: pain, that is moderate, of the right subscapular area, muscle spasm, is appreciated in the right subscapular area. Vital Signs: 00:42 BP 170 / 109; Pulse 81; Resp 20; Temp 98.2(O); Pulse Ox 100% on R/A; Weight 70.31 kg; lh3 Height 5 ft. 7 in. (170.18 cm); 01:14 BP 154 / 100; Pulse 76; Resp 18; Pulse Ox 100% on R/A; Pain 3/10; wg 02:27 BP 157 / 114; Pulse 70; Resp 18; Pulse Ox 100% on R/A; wg 02:43 BP 142 / 88; Pulse 70; Resp 18; Pulse Ox 100% on R/A; wg 00:42 Body Mass Index 24.28 (70.31 kg, 170.18 cm) lh3 MDM: 00:54 Patient medically screened. [facility] 02:21 Data reviewed: vital signs, nurses notes. Counseling: I had a detailed discussion with ricco the patient and/or guardian regarding: the historical points, exam findings, and any diagnostic results supporting the discharge/admit diagnosis, radiology results, the need for outpatient follow up, to return to the emergency department if symptoms worsen or persist or if there are any questions or concerns that arise at home. Transition of care: After a detail discussion of the patient's case, care is transferred to Gael Ureña MD. 11/16 00:55 Order name: CT Chest For PE Angio [facility] 11/16 00:55 Order name: Saline Lock; Complete Time: 01:[address] [facility] Administered Medications: 01:12 Drug: Ketorolac 15 mg Route: IVP; Infused Over: 2 mins; Site: right forearm; wg 01:12 Drug: Pepcid (famotidine) 20 mg Route: IVP; Infused Over: 2 mins; Site: right forearm; wg 01:52 Drug: Valium (diazepam) 5 mg Route: PO; wg 02:27 Drug: Norvasc (amlodipine) 5 mg Route: PO; wg Disposition: 02:38 Co-signature as Attending Physician, Gael Ureña MD I agree with the assessment and rn plan of care. Attestation: The patient's history, exam findings, diagnostics, and a summary of any interventions or procedures was reviewed in detail with Michael SPENCER. Disposition Summary: 11/16/20 02:25 Discharge Ordered Location: Home [facility] Condition: Stable jmm Diagnosis - Strain of muscle and tendon of back wall of thorax [facility] Followup: [facility] - With: Private Physician - When: 2 - 3 days - Reason: Recheck today's complaints, Continuance of care, Re-evaluation by your physician Discharge Instructions: - Discharge Summary Sheet [facility] - Thoracic Strain [facility] Forms: - Medication Reconciliation Form [facility] - Thank You Letter [facility] - Antibiotic Education [facility] - Prescription Opioid Use [facility] Prescriptions: - orphenadrine citrate 100 mg Oral Tablet Sustained Release - take 1 tablet by ORAL route 2 times per day As needed; 20 tablet; Refills: 0, jmm Product Selection Permitted Signatures: Dispatcher [employer] EDMichael Reyna PA PA [facility] Gael Ureña MD MD rn [place]Shann[place] RN RN [facility] Mario Salter RN
--- NOTE | 2020-11-16 02:25 | ER ---
Nurse's Notes [facility] Name: Kayy Carvajal Age: 50 yrs Sex: Male : 1970 Arrival Date: 11/16/2020 Time: 00:34 Bed 5 Private MD: Diagnosis: Strain of muscle and tendon of back wall of thorax Presentation: 11/16 00:42 Chief complaint: Patient states: that he has been have right sided back pain since lh3 yesterday. Pain worsens with deep breathing. Took advil before coming in. Denies trauma to the area or it happening before. Coronavirus screen: Vaccine status: Patient reports receiving the 2nd dose of the covid vaccine. Date April 2020. Ebola Screen: No symptoms or risks identified at this time. Initial Sepsis Screen: Does the patient meet any 2 criteria? No. Patient's initial sepsis screen is negative. Does the patient have a suspected source of infection? No. Patient's initial sepsis screen is negative. Risk Assessment: Do you want to hurt yourself or someone else? Patient reports no desire to harm self or others. Onset of symptoms was November 15, 2020. Care prior to arrival: Medication(s) given: Motrin, 600 mg. 00:42 Method Of Arrival: Ambulatory lh3 00:42 Acuity: HOLLEY 2 lh3 Triage Assessment: 00:46 General: Appears uncomfortable, Behavior is calm, cooperative, appropriate for age. lh3 Pain: Complains of pain in right mid back. Historical: - Home Meds: 00:46 amlodipine 5 mg tab 1 tab once daily [Active]; omeprazole 40 mg Oral cpDR 1 cap once lh3 daily [Active]; - PMHx: 00:46 GERD; Hypertension; MICHELE; bowel obstruction; lh3 - Immunization history:: Client reports receiving the 2nd dose of the Covid vaccine, Date received: April 2020. - Social history:: Smoking status: Patient denies any tobacco usage or history of. Assessment: 01:18 Cardiovascular: No deficits noted. Capillary refill < 3 seconds JVD is absent Patient's wg skin is warm and dry. Rhythm is sinus rhythm Chest pain is denied. GI: Reports epigastric pain, indigestion. 01:19 Musculoskeletal: Reports pain in right mid back. wg Vital Signs: 00:42 BP 170 / 109; Pulse 81; Resp 20; Temp 98.2(O); Pulse Ox 100% on R/A; Weight 70.31 kg; 3 Height 5 ft. 7 in. (170.18 cm); 01:14 BP 154 / 100; Pulse 76; Resp 18; Pulse Ox 100% on R/A; Pain 3/10; wg 02:27 BP 157 / 114; Pulse 70; Resp 18; Pulse Ox 100% on R/A; wg 02:43 BP 142 / 88; Pulse 70; Resp 18; Pulse Ox 100% on R/A; wg 00:42 Body Mass Index 24.28 (70.31 kg, 170.18 cm) 3 ED Course: 00:34 Patient arrived in ED. 00:46 Triage completed. lh3 00:46 Arm band placed on right wrist. 3 00:54 Michael Beckham PA is PHCP. [facility] 00:54 Gael Ureña MD is Attending Physician. [facility] 00:56 Mario Salter RN is Primary Nurse. wg 01:13 Inserted saline lock: 18 gauge in right forearm, using aseptic technique. Blood wg collected. 01:53 CT Chest For PE Angio In Process Unspecified. EDMS 01:53 CT Chest For PE Angio Sent. wg 02:43 IV discontinued, intact, bleeding controlled, No redness/swelling at site. Pressure wg dressing applied. Administered Medications: 01:12 Drug: Ketorolac 15 mg Route: IVP; Infused Over: 2 mins; Site: right forearm; wg 01:12 Drug: Pepcid (famotidine) 20 mg Route: IVP; Infused Over: 2 mins; Site: right forearm; wg 01:52 Drug: Valium (diazepam) 5 mg Route: PO; wg 02:27 Drug: Norvasc (amlodipine) 5 mg Route: PO; wg Outcome: 02:25 Discharge ordered by . ricco 02:43 Discharged to home ambulatory. wg 02:43 Condition: stable 02:43 Discharge instructions given to Instructed on discharge instructions, follow up and referral plans. medication usage, Demonstrated understanding of instructions, follow-up care, medications, Prescriptions given X 1. 02:44 Patient left the ED. wg Signatures: Dispatcher [employer] EDMS Michael Beckham PA PA jmm Marsh, Wendy Shannan Najera RN RN lh3 Mario Salter, RN wg
[2020-11-16] MEDS ORDERED: AMLODIPINE 5 MG TAB ONE (02:50)
[2020-11-16 02:55] VITALS: TEMP 98.2; O2SAT 100
[2020-11-16 03:00] VITALS: BP 142/88
--- NOTE | 2020-11-16 12:40 | RAD REPORT ---
EXAM DESCRIPTION: CT - Chest For Pe Angio - 11/16/2020 5:24 am EXAM DATE/TIME: November 16, 2020 at 0141 hours CLINICAL HISTORY: The patient is 50 years old and is Male; right thoracic back pain TECHNIQUE: Axial computed tomographic angiography images of the chest with intravenous contrast. S agittal and coronal reformatted images were created and reviewed. This CT exam was performed using one or more of the following dose reduction techniques: automated exposure control, adjustment of t he mA and/or kV according to patient size, and/or use of iterative reconstruction technique. MIP reconstructed images were created and reviewed. COMPARISON: No relevant prior studies available. FINDINGS: ARTIFACTS: The exam is suboptimal secondary to motion artifact. PULMONARY ARTERIES: There are no obvious filling defects identified within the pulmonary arterie s to suggest pulmonary embolism. AORTA: No acute findings. No thoracic aortic aneurysm. LUNGS: Minimal dependent densities in the lung bases are present. The lungs are otherwise clear. No mass. PLEURAL SPACE: Unremarkable. No significant effusion. No pneumothorax. HEART: Unremarkable. No cardiomegaly. No significant pericardial effusion. No evidence of RV dysfunction. BONES/JOINTS: The vertebral body heights and alignment are maintained. There is no acute fractur e. SOFT TISSUES: Unremarkable. LYMPH NODES: Unremarkable. No enlarged lymph nodes. LIVER: The liver is mildly enlarged and fatty. IMPRESSION: 1. No evidence of pulmonary embolism. 2. Minimal bibasilar atelectasis. Electronically signed by: Soraya Greene MD 11/16/2020 2:15 AM CDT Due to temporary technical issues with the PACS/Fluency reporting system, reports are being signed by the in house radiologist without review as a courtesy to ensure prompt reporting. The interpreting r adiologist is fully responsible for the content of the report.
== END 2020-11-16 02:44 | disposition home or self-care (01) ==
LOC: ER 00:30
DX: S29.012A Strain of muscle and tendon of back wall of thorax, initial encounter (principal); I10 Essential (primary) hypertension; K21.9 Gastro-esophageal reflux disease without esophagitis
CPT/HCPCS: 82565; 71275; 96375; 96374; 99284; Q9967

== ENCOUNTER 2022-02-22 07:38 | Emergency (ER) | payer BC ==
--- OUTSIDE RECORDS SUMMARY | 2022-02-22 07:41 | XMS REPORT | Continuity of Care Document ---
:1970 Author Organization [facility] t Address [address] [place] [address] Care Team Providers Name Role Phone Sharpless Primary Care Physician Jesus Deluna Attending Clinician Unavailable Payers Payer Name Policy Type Policy Number Effective Date Expiration Date Yaa joy [employer] 6 [id number] 2017 Common Spiri t Blue Shield of 00:00:00 [facility] Problems Condition Condition Condition Status Onset Resolution Last Treating Co mments Source Name Details Category Date Date Treatment Clinician Date Small Small Disease Active Methodi bowel bowel 3-16 st obstructio obstructio 00:00: Ho spita n due to n due to 00 l adhesions adhesions SBO (small SBO (small Disease Active 2017-02 M ethodi bowel bowel 0-08 st obstructio obstructio 00:00: Ho spita n) n) 00 l Small Small Disease Active 2015-02 Methodi bowel bowel 1-16 st obstructio obstructio 00:00: Ho spita n n 00 l HTN HTN Disease Active [facility] (hypertens (hypertens 06-24 Patito kes ion) ion) 00:00: Medical 00 Center Abdominal Abdominal Disease Active [facility] pain[facility], 06[facility] other 00:00: Medical specified specified 00 Cent er site site Small Small Disease Active [facility] bowel bowel 06-20 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 [facility] Iron Iron Problem Active Common deficiency deficiency Sp kd anemia due anemia due - CHI to chronic to chronic St blood loss blood loss [facility] Iron Other iron Problem Active Commo n deficiency deficiency Sp kd anemia anemia - [facility] [id number] HTN Problem Active Common (hypertens Spirit ion), - [facility] benign [facility] [id number] History of Problem Active C ommon [id number] small Spirit bowel - CHI obstructio [facility] [id number] Non-season Problem Active Com mon al Spirit [facility], [id number] GERD Problem Active Common without Spirit esophagiti - [facility] s [facility] [id number] Dry eyes, Problem Active Com mon bilateral Spirit - [facility] [id number] Iron Problem Active Common deficiency Spirit anemia - [facility] secondary [facility] to 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 00:00: Medical 00 Center Family History Family Member Diagnosis Comments Start Date Stop Date Source Natural father Hypertension [facility] Social History Social Habit Start Date Stop Date Quantity Comments Source History of Common Spirit - Tobacco Use [facility] Alcohol intake 2017-12-01 2017-12-01 Current [facility] 00:00:00 00:00:00 non-drinker of Hospital alcohol (finding) Tobacco use and 2017-11-26 2017-11-26 Smokeless tobacco [facility] exposure 00:00:00 00:00:00 non-user Hospital Alcohol Comment 2016-01-06 2016-01-06 social [facility] 00:00:00 00:00:00 Hospital Sex Assigned At [birth year] [facility] 00:00:00 00:00:00 Hospital Smoking Status Start Date Stop Date Source Never Smoker [facility] Medications Ordered Filled Start Stop Current Ordering Indication Dosage Frequency Signature Comments Components Source Medication Medication Date Date Medication? Clinician (SIG) Name Name Tamiflu 75 Tamiflu 75 2021-0 No 1{capsu QD Tamiflu 75 MG MG 4-15 le} MG 00:00: 00 Tamiflu 75 Tamiflu 75 2021-0 No 1{capsu QD Tamiflu 75 MG MG 4-15 le} MG 00:00: 00 Tamiflu 75 Tamiflu 75 2021-0 No 1{capsu QD Tamiflu 75 MG MG 4-15 le} MG 00:00: 00 Azithromyci Azithromyci 2020-0 2021- No QD Azithromyc n 250 MG n 250 MG 11-17 in 250 MG 00:00: 00:00 00 :00 Kenalog Kenalog 2019-0 No 40mg Common (Triamcinol (Triamcinol 3-10 S pirit one) one) 00:00: - [facility] Kenalog Kenalog 2019-0 No 40mg Common (Triamcinol (Triamcinol 3-10 S pirit one) one) 00:00: - [facility] Kenalog Kenalog 2019-0 No 40mg Common (Triamcinol (Triamcinol 3-10 S pirit one) one) 00:00: - [facility] 00 [facility] omeprazole 2018-0 Yes 40mg QD Take 40 mg M ethodi (PriLOSEC) 3-[address] 40 MG 12:25: daily. Hospita capsule 09 l amLODIPine 2018-0 Yes 5mg QD Take 5 mg Me thodi (NORVASC) 5 3-[address] MG tablet 12:25: daily. Hospit a 09 l omeprazole 2014- Yes 40mg QD Take [address] (PRILOSEC) 5-05 [facility] 40 MG 16:36: daily. Medical capsule 35 Center amLODIPine amLODIPine No 1{table QD Besylate 5 Besylate 5 t} MG MG Orphenadrin Orphenadrin No 1{table BID e Citrate e Citrate t} ER 100 MG ER 100 MG Amitiza 8 Amitiza 8 No 1{capsu BID MCG MCG le_with _food} Omeprazole Omeprazole No 1{capsu QD 40 MG 40 MG le} Restasis Restasis No 1{drop_ BID 0.05 % 0.05 % into_af fected_ eye} amLODIPine amLODIPine No 1{table QD amLODIPine Besylate 5 Besylate 5 t} Besylate 5 MG MG MG Orphenadrin Orphenadrin No 1{table BID Orphenadri e Citrate e Citrate t} ne Citrate ER 100 MG ER 100 MG ER 100 MG Amitiza 8 Amitiza 8 No 1{capsu BID Amitiza 8 MCG MCG le_with MCG _food} Omeprazole Omeprazole No 1{capsu QD Omeprazole 40 MG 40 MG le} 40 MG Restasis Restasis No 1{drop_ BID Restasis 0.05 % 0.05 % into_af 0.05 % fected_ eye} amLODIPine amLODIPine No 1{table QD Besylate 5 Besylate 5 t} MG MG Orphenadrin Orphenadrin No 1{table BID e Citrate e Citrate t} ER 100 MG ER 100 MG Amitiza 8 Amitiza 8 No 1{capsu BID MCG MCG le_with _food} Omeprazole Omeprazole No 1{capsu QD 40 MG 40 MG le} Restasis Restasis No 1{drop_ BID 0.05 % 0.05 % into_af fected_ eye} amLODIPine amLODIPine No 1{table QD amLODIPine Besylate 5 Besylate 5 t} Besylate 5 MG MG MG Orphenadrin Orphenadrin No 1{table BID Orphenadri e Citrate e Citrate t} ne Citrate ER 100 MG ER 100 MG ER 100 MG Amitiza 8 Amitiza 8 No 1{capsu BID Amitiza 8 MCG MCG le_with MCG _food} Omeprazole Omeprazole No 1{capsu QD Omeprazole 40 MG 40 MG le} 40 MG Restasis Restasis No 1{drop_ BID Restasis 0.05 % 0.05 % into_af 0.05 % fected_ eye} amLODIPine amLODIPine No 1{table QD amLODIPine Besylate 5 Besylate 5 t} Besylate 5 MG MG MG Orphenadrin Orphenadrin No 1{table BID Orphenadri e Citrate e Citrate t} ne Citrate ER 100 MG ER 100 MG ER 100 MG Amitiza 8 Amitiza 8 No 1{capsu BID Amitiza 8 MCG MCG le_with MCG _food} Omeprazole Omeprazole No 1{capsu QD Omeprazole 40 MG 40 MG le} 40 MG Restasis Restasis No 1{drop_ BID Restasis 0.05 % 0.05 % into_af 0.05 % fected_ eye} Omeprazole Omeprazole No 1{capsu QD Omeprazole 40 MG 40 MG le} 40 MG Orphenadrin Orphenadrin No 1{table BID Orphenadri e Citrate e Citrate t} ne Citrate ER 100 MG ER 100 MG ER 100 MG Restasis Restasis No 1{drop_ BID Restasis 0.05 % 0.05 % into_af 0.05 % fected_ eye} amLODIPine amLODIPine No 1{table QD amLODIPine Besylate 5 Besylate 5 t} Besylate 5 MG MG MG Amitiza 8 Amitiza 8 No 1{capsu BID Amitiza 8 MCG MCG le_with MCG _food} Omeprazole Omeprazole No 1{capsu QD Omeprazole 40 MG 40 MG le} 40 MG Orphenadrin Orphenadrin No 1{table BID Orphenadri e Citrate e Citrate t} ne Citrate ER 100 MG ER 100 MG ER 100 MG Restasis Restasis No 1{drop_ BID Restasis 0.05 % 0.05 % into_af 0.05 % fected_ eye} amLODIPine amLODIPine No 1{table QD amLODIPine Besylate 5 Besylate 5 t} Besylate 5 MG MG MG Amitiza 8 Amitiza 8 No 1{capsu BID Amitiza 8 MCG MCG le_with MCG _food} Omeprazole Omeprazole No 1{capsu QD Omeprazole 40 MG 40 MG le} 40 MG Orphenadrin Orphenadrin No 1{table BID Orphenadri e Citrate e Citrate t} ne Citrate ER 100 MG ER 100 MG ER 100 MG Restasis Restasis No 1{drop_ BID Restasis 0.05 % 0.05 % into_af 0.05 % fected_ eye} amLODIPine amLODIPine No 1{table QD amLODIPine Besylate 5 Besylate 5 t} Besylate 5 MG MG MG Amitiza 8 Amitiza 8 No 1{capsu BID Amitiza 8 MCG MCG le_with MCG _food} Omeprazole Omeprazole No 1{capsu QD Omeprazole 40 MG 40 MG le} 40 MG Restasis Restasis No 1{drop_ BID Restasis 0.05 % 0.05 % into_af 0.05 % fected_ eye} Amitiza 8 Amitiza 8 No 1{capsu BID Amitiza 8 MCG MCG le_with MCG _food} Amlodipine Amlodipine No 1{table QD Amlodipine Besylate 5 Besylate 5 t} Besylate 5 MG MG MG Ferrous Ferrous No 1{table BID Ferrous Sulfate 325 Sulfate 325 t} Sulfate (65 Fe) MG (65 Fe) MG 325 (65 Fe) MG Amitiza 8 Amitiza 8 No 1{capsu BID Amitiza 8 MCG MCG le_with MCG _food} Restasis Restasis No 1{drop_ BID Restasis 0.05 % 0.05 % into_af 0.05 % fected_ eye} Ferrous Ferrous No 1{table BID Ferrous Sulfate 325 Sulfate 325 t} Sulfate (65 Fe) MG (65 Fe) MG 325 (65 Fe) MG Amlodipine Amlodipine No 1{table QD Amlodipine Besylate 5 Besylate 5 t} Besylate 5 MG MG MG Omeprazole Omeprazole No 1{capsu QD Omeprazole 40 MG 40 MG le} 40 MG amLODIPine amLODIPine No 1{table QD amLODIPine Besylate 5 Besylate 5 t} Besylate 5 MG MG MG Amitiza 8 Amitiza 8 No 1{capsu BID Amitiza 8 MCG MCG le_with MCG _food} Omeprazole Omeprazole No 1{capsu QD Omeprazole 40 MG 40 MG le} 40 MG Restasis Restasis No 1{drop_ BID Restasis 0.05 % 0.05 % into_af 0.05 % fected_ eye} amLODIPine amLODIPine No 1{table QD amLODIPine Besylate 5 Besylate 5 t} Besylate 5 MG MG MG Orphenadrin Orphenadrin No 1{table BID Orphenadri e Citrate e Citrate t} ne Citrate ER 100 MG ER 100 MG ER 100 MG Amitiza 8 Amitiza 8 No 1{capsu BID Amitiza 8 MCG MCG le_with MCG _food} Omeprazole Omeprazole No 1{capsu QD Omeprazole 40 MG 40 MG le} 40 MG Restasis Restasis No 1{drop_ BID Restasis 0.05 % 0.05 % into_af 0.05 % fected_ eye} amLODIPine amLODIPine No 1{table QD amLODIPine Besylate 5 Besylate 5 t} Besylate 5 MG MG MG Orphenadrin Orphenadrin No 1{table BID Orphenadri e Citrate e Citrate t} ne Citrate ER 100 MG ER 100 MG ER 100 MG Amitiza 8 Amitiza 8 No 1{capsu BID Amitiza 8 MCG MCG le_with MCG _food} Omeprazole Omeprazole No 1{capsu QD Omeprazole 40 MG 40 MG le} 40 MG Restasis Restasis No 1{drop_ BID Restasis 0.05 % 0.05 % into_af 0.05 % fected_ eye} amLODIPine amLODIPine No 1{table QD amLODIPine Besylate 5 Besylate 5 t} Besylate 5 MG MG MG Orphenadrin Orphenadrin No 1{table BID Orphenadri e Citrate e Citrate t} ne Citrate ER 100 MG ER 100 MG ER 100 MG Amlodipine Amlodipine Yes Jesus 1 tablet Common Besylate Besylate Deluna [facility] Omeprazole Omeprazole Yes Jesus 1 capsule Common Deluna [facility] Ferrous Ferrous Yes Jesus 1 tablet Com mon Sulfate Sulfate Deluna [facility] Amitiza Amitiza Yes Jesus 1 capsule Co mmon Deluna with food [facility] Restasis Restasis Yes Jesus 1 drop Com mon Deluna into Spirit affected - [facility] eye [facility] Amitiza 8 Amitiza 8 No 1{capsu BID Amitiza 8 MCG MCG le_with MCG _food} Omeprazole Omeprazole No 1{capsu QD Omeprazole 40 MG 40 MG le} 40 MG Restasis Restasis No 1{drop_ BID Restasis 0.05 % 0.05 % into_af 0.05 % fected_ eye} Immunizations Ordered Immunization Filled Immunization Date Status Commen ts Source Name Name Mateus Ignacio 2019-04-30 Completed [facility] - (Triamcinolone) (Triamcinolone) 14:12:00 [facility] Mateus Ignacio 2019-04-30 Completed [facility] - (Triamcinolone) (Triamcinolone) 14:12:00 [facility] Mateus Ignacio 2019-04-30 Completed [facility] - (Triamcinolone) (Triamcinolone) 14:12:00 [facility] Mateus Ignacio 2019-04-30 Completed [facility] - (Triamcinolone) (Triamcinolone) 14:12:00 [facility] Mateus Ignacio 2019-04-30 Completed [facility] - (Triamcinolone) (Triamcinolone) 14:12:00 [facility] Mateus Ignacio 2019-04-30 Completed [facility] - (Triamcinolone) (Triamcinolone) 14:12:00 [facility] FLUZONE QUAD PF 2016-01-24 Completed [facility] 00:00:00 Hospital Vital Signs Vital Name Observation Time Observation Value Comments Source height 2020-11-17 09:20:00 67 [in_i] Common S pirit [facility] weight 2020-11-17 09:20:00 155.6 [lb_av] [facility] Spirit [facility] temperature 2020-11-17 09:20:00 98.0 [degF] Common S pirit [facility] bmi 2020-11-17 09:20:00 24.37 kg/m2 [facility] S [facility] oximetry 2020-11-17 09:20:00 99 % Common S pirit - [facility] respiratory rate 2020-11-17 09:20:00 17 /min Comm on [facility] blood pressure 2020-11-17 09:20:00 136 mm[Hg] Common [facility] - systolic [facility] blood pressure 2020-11-17 09:20:00 71 mm[Hg] Common [facility] - diastolic [facility] Procedures This patient has no known procedures. Plan of Care Planned Activity Planned Date Details Comments Source Future Scheduled 2022-02-04 COVID-19 VACCINE (#1) [facility] Test 18:01:57 [code = COVID-19 VACCINE (#1)] Future Scheduled 2022-02-04 COLONOSCOPY SCREENING [facility] Test 18:01:57 [code = COLONOSCOPY SCREENING] Future Scheduled 2022-02-04 SHINGLES VACCINES (1 [facility] Test 18:01:57 of 2) [code = SHINGLES VACCINES (1 of 2)] Future Scheduled 2022-02-04 INFLUENZA VACCINE Method [facility] Test 18:01:57 [code = INFLUENZA VACCINE] Encounters Start End Encounter Admission Attending Care Care Encounter Source Date/Time Date/Time Type Type Clinicians Facility Department ID 2021-03-19 Outpatient Deluna, STLMLC STLC [id number] Common 10:58:00 Jesus [id number] [facility] 2021-03-17 Outpatient Deluna, STLMLC STLC [id number] Common 14:01:31 Jesus [id number] [facility] 2021-03-17 Outpatient Deluna, STLMLC STLC [id number] Common 12:29:42 Jesus [id number] [facility] 2021-03-17 Outpatient Deluna, STLMLC STLC [id number] Common 12:25:45 Jesus [id number] [facility] 2021-06-04 2021-06-04 (TEL) STLC STLC [id number] Co mmon 00:00:00 00:00:00 [facility] 2021-06-04 2021-06-04 [facility] [id number] Co mmon 00:00:00 00:00:00 [facility] 2021-01-12 2021-01-12 (WEB) STLMLC STLMLC [id number] Co mmon 00:00:00 00:00:00 [facility] 2021-01-11 2021-01-11 (WEB) STLMLC STLMLC [id number] Co mmon 00:00:00 00:00:00 [facility] 2020-12-22 2020-12-22 (WEB) STLMLC STLMLC [id number] Co mmon 00:00:00 00:00:00 [facility] 2020-12-21 2020-12-21 (WEB) STLMLC STLMLC [id number] Co mmon 00:00:00 00:00:00 [facility] 2020-12-21 2020-12-21 (WEB) STLMLC STLMLC [id number] Co mmon 00:00:00 00:00:00 [facility] 2020-12-21 2020-12-21 (WEB) STLMLC STLMLC [id number] Co mmon 00:00:00 00:00:00 [facility] 2020-12-09 2020-12-09 (WEB) STLMLC STLMLC [id number] Co mmon 00:00:00 00:00:00 [facility] 2020-11-17 2020-11-17 OFFICE STLMLC STLMLC [id number] Co mmon 00:00:00 00:00:00 VISIT [facility] 4 [facility] 2020-11-16 2020-11-16 (TEL) STLMLC STLMLC [id number] Co mmon 00:00:00 00:00:00 [facility] 2020-07-10 2020-07-10 (TEL) STLMLC STLMLC [id number] Co mmon 00:00:00 00:00:00 [facility] 2020-07-08 2020-07-08 (TEL) STLMLC STLMLC [id number] Co mmon 00:00:00 00:00:00 [facility] 2020-05-01 2020-05-01 Outpatient STLMLC STLMLC [id number] Common 00:00:00 00:00:00 [facility] 2020-04-01 2020-04-01 Outpatient STLMLC STLMLC [id number] Common 00:00:00 00:00:00 [facility] 2020-03-19 2020-03-19 Outpatient STLMLC STLMLC [id number] Common 00:00:00 00:00:00 [facility] 2020-03-18 2020-03-18 Outpatient STLMLC STLMLC [id number] Common 00:00:00 00:00:00 [facility] 2019-09-18 2019-09-18 [facility] [id number] Common 11:54:00 11:54:[address] [facility] 2019-06-25 2019-06-25 [facility] [id number] Common 14:12:00 14:12:[address] [facility] 2019-04-30 2019-04-30 [facility] [id number] Common 13:45:00 13:45:[address] [facility] 2019-02-04 2019-02-04 [facility] [id number] Common 11:33:00 11:33:[address] [facility] 2018-12-26 2018-12-26 [facility] [id number] Common 11:30:00 11:30:[address] [facility] 2018-12-18 2018-12-18 [facility] [id number] Common 14:08:00 14:08:[address] [facility] [address] [facility] 2018-09-10 2018-09-10 [facility] [id number] Common 13:00:00 13:00:[address] [facility] 2018-05-17 2018-05-17 [facility] [id number] Common 06:47:00 06:47:00 [place] [facility] 2018-05-16 2018-05-16 [facility] [id number] Common 09:58:00 09:58:[address] [facility] 2018-05-10 2018-05-10 [facility] [id number] Common 09:30:00 09:30:[address] [facility] 2017-07-21 2017-07-21 [facility] [id number] Common 08:30:00 08:30:[address] [facility] 2017-07-04 2017-07-04 [facility] [id number] Common 16:42:00 16:42:[address] [facility] 2017-06-19 2017-06-19 [facility] [id number] Common 16:16:00 16:16:[address] [facility] 2017-06-15 2017-06-15 [facility] [id number] Common 15:56:00 15:56:[address] [facility] 2017-06-15 2017-06-15 [facility] [id number] Common 13:12:00 13:12:[address] [facility] 2017-06-15 2017-06-15 [facility] [id number] Common 08:00:00 08:00:[address] [facility] Results This patient has no known results.
[2022-02-22 09:33] LABS: Absolute Lymphocytes (CBC) 1.1 K/uL (0.7-4.9); Hematocrit 49.7 % (39.6-49.0); Lymphocytes % 15.6 % (15.3-44.8); MCV 90.8 fL (80-100); MPV 7.8 fL (7.6-11.3); RBC Red Blood Cell Count 5.47 M/uL (4.33-5.43)
[2022-02-22] MEDS ORDERED: ONDANSETRON 4 MG/2 ML VIAL ONE (09:33)
[2022-02-22] MEDS ORDERED: NA CHLORIDE 0.9% 1,000 ML ONE (09:33)
[2022-02-22 09:47] LABS: Albumin 3.9 g/dL (3.4-5.0); Bilirubin Total 0.5 mg/dL (0.2-1.0); Potassium 4.2 mmol/L (3.5-5.1); Protein, Total 7.6 g/dL (6.4-8.2)
--- NOTE | 2022-02-22 10:39 | RAD REPORT ---
EXAM DESCRIPTION: CT - Abdomen Pelvis W Contrast - 02/22/2022 9:59 am CLINICAL HISTORY: Abdominal pain COMPARISON: 2019 TECHNIQUE: Computed axial tomography of the abdomen pelvis was obtained. 100 cc Isovue-300 was admin istered intravenously. Oral contrast was not requested which limits evaluation of bowel and appendix All CT scans are performed using dose optimization technique as appropriate and may include automated exposure control or mA/KV adjustment according to patient size. FINDINGS: Fatty liver The spleen, pancreas, adrenal and kidneys appear unremarkable. There is no evidence of diverticulitis. Moderate dilatation of a distal jejunum and proximal ileum. The proximal jejunum and distal ileum are normal caliber. Of this may represent a closed loop obstruction. No free air IMPRESSION: Small bowel obstruction. This may represent a closed loop obstruction.
--- NOTE | 2022-02-22 11:53 | EDPHYS ---
Physician Documentation [facility] Name: Kayy Carvajal Age: 51 yrs Sex: Male : 1970 Arrival Date: 02/22/2022 Time: 07:44 Bed DIS1 Private MD: ED Physician Fly Mahmood HPI: 02/22 09:22 This 51 yrs old Male presents to ER via Ambulatory with complaints of Abdominal rt Pain - severe. 09:22 The patient presents with abdominal pain right sided. Onset: The symptoms/episode rt began/occurred yesterday. The symptoms do not radiate. Associated signs and symptoms: Pertinent positives: nausea, Pertinent negatives: vomiting. The symptoms are described as achy. Modifying factors: The symptoms are alleviated by nothing, the symptoms are aggravated by nothing. Severity of pain: At its worst the pain was moderate. The patient has experienced similar episodes in the past, today's symptoms are similar, to previous SBO. Reports symptoms are similar to multiple previous small bowel obstructions, the patient reports passing flatus, last bowel movement was yesterday.. Historical: - Allergies: 08:32 No Known Allergies; jl7 - Home Meds: 08:32 amlodipine 5 mg tab 1 tab once daily [Active]; omeprazole 40 mg Oral cpDR 1 cap once jl7 daily [Active]; - PMHx: 08:32 bowel obstruction; GERD; Hypertension; MICHELE; jl7 - Immunization history:: Client reports receiving the 2nd dose of the Covid vaccine. - Social history:: Smoking status: Patient denies any tobacco usage or history of. - Family history:: not pertinent. ROS: 09:22 Constitutional: Negative for fever, chills, and weight loss, Eyes: Negative for injury, rt pain, redness, and discharge, ENT: Negative for injury, pain, and discharge, Neck: Negative for injury, pain, and swelling, Cardiovascular: Negative for chest pain, palpitations, and edema, Respiratory: Negative for shortness of breath, cough, wheezing, and pleuritic chest pain, MS/Extremity: Negative for injury and deformity, Skin: Negative for injury, rash, and discoloration, Neuro: Negative for headache, weakness, numbness, tingling, and seizure, Psych: Negative for depression, anxiety, suicide ideation, homicidal ideation, and hallucinations. 09:22 Abdomen/GI: Positive for abdominal pain, Negative for nausea. Exam: 09:22 Constitutional: This is a well developed, well nourished patient who is awake, alert, rt and in no acute distress. Head/Face: Normocephalic, atraumatic. Eyes: Pupils equal round and reactive to light, extra-ocular motions intact. Lids and lashes normal. Conjunctiva and sclera are non-icteric and not injected. Cornea within normal limits. Periorbital areas with no swelling, redness, or edema. ENT: Nares patent. No nasal discharge, no septal abnormalities noted. Tympanic membranes are normal and external auditory canals are clear. Oropharynx with no redness, swelling, or masses, exudates, or evidence of obstruction, uvula midline. Mucous membranes moist. Chest/axilla: Normal chest wall appearance and motion. Nontender with no deformity. No lesions are appreciated. Cardiovascular: Regular rate and rhythm with a normal S1 and S2. No gallops, murmurs, or rubs. Normal PMI, no JVD. No pulse deficits. Respiratory: Lungs have equal breath sounds bilaterally, clear to auscultation and percussion. No rales, rhonchi or wheezes noted. No increased work of breathing, no retractions or nasal flaring. Skin: Warm, dry with normal turgor. Normal color with no rashes, no lesions, and no evidence of cellulitis. MS/ Extremity: Pulses equal, no cyanosis. Neurovascular intact. Full, normal range of motion. Neuro: Awake and alert, GCS 15, oriented to person, place, time, and situation. Cranial nerves II-XII grossly intact. Motor strength 5/5 in all extremities. Sensory grossly intact. Cerebellar exam normal. Normal gait. Psych: Awake, alert, with orientation to person, place and time. Behavior, mood, and affect are within normal limits. 09:22 Abdomen/GI: Reactive bowel sounds, tenderness to the right upper and right lower quadrants without rebound, guarding, distention.. Vital Signs: 08:15 BP 152 / 118; Pulse 82; Resp 17; Temp 97.5; Pulse Ox 99% on R/A; Weight 72.12 kg (R); jl7 Height 5 ft. 7 in. (170.18 cm); Pain 9/10; 12:00 BP 155 / 98; Pulse 76; Resp 14; Pulse Ox 98% on R/A; vg1 08:15 Body Mass Index 24.90 (72.12 kg, 170.18 cm) jl7 MDM: 09:21 Patient medically screened. rt 11:53 Differential diagnosis: Bowel obstruction, ischemic bowel, appendicitis. Data reviewed: rt vital signs, nurses notes, lab test result(s), EKG, radiologic studies. Refusal of service: The patient/guardian displays adequate decision making capability and despite a detailed discussion of alternatives, benefits, risks, and consequences refuses: Admission to the hospital for further work-up and treatment. ED course: Presents to the ED with abdominal pain, nausea, consistent with prior episodes of bowel obstruction. Patient has unremarkable labs, normal lactate. The patient is found to have a closed-loop bowel obstruction on CT scan. There is no evidence for ischemic bowel, perforation. He has a nonperitoneal abdominal exam. Symptoms are improving with IV fluids, nausea medications. Per patient's request, attempted to transfer patient to [facility], unable to do so due to capacity. For that reason, I recommended that I call the general surgeon here and get the patient admitted to this hospital. Patient states that he would rather be cared for by his general surgeon at [facility], informed him that I would be unable to initiate that transfer and strongly recommended that he stay, the patient stated that he wished to go to the ER at [facility]. Please note that I did not recommend that the patient take this course of action discussed risks and benefits of leaving, patient understands these risks, return precautions were discussed.. 02/22 08:47 Order name: CBC with Diff; Complete Time: 09:54 rt 02/22 08:47 Order name: CMP; Complete Time: 09:54 rt 02/22 08:47 Order name: Lactate w/ 2H reflex if indic.; Complete Time: 09:54 rt 02/22 08:47 Order name: Lipase; Complete Time: 09:54 rt 02/22 08:47 Order name: CT Abd/Pelvis - IV Contrast Only; Complete Time: 10:45 rt Administered Medications: 09:35 Drug: NS 0.9% 1000 ml Route: IV; Rate: 1 bolus; Site: right antecubital; ap3 12:16 Follow up: IV Status: Completed infusion; IV Intake: 1000ml vg1 09:35 Drug: Zofran (Ondansetron) 4 mg Route: IVP; Site: right antecubital; ap3 12:16 Follow up: Response: No adverse reaction; Marked relief of symptoms vg1 Disposition Summary: 02/22/22 11:52 Discharge Ordered Location: Home rt Problem: new rt Symptoms: are unchanged rt Condition: Serious rt Diagnosis - Small Bowel Obstruction rt Followup: rt - With: Private Physician - When: 2 - 3 days - Reason: Discharge Instructions: - Discharge Summary Sheet rt - Bowel Obstruction rt Forms: - Medication Reconciliation Form rt - Thank You Letter rt - Antibiotic Education rt - Prescription Opioid Use rt Signatures: Dispatcher [employer] Cassie Vidal RN RN jl7 Taylor Vasquez RN RN ap3 Fly Mahmood MD MD rt Lin Fowler RN vg1
--- NOTE | 2022-02-22 11:53 | ER ---
Nurse's Notes [facility] Name: Kayy Carvajal Age: 51 yrs Sex: Male : 1970 Arrival Date: 02/22/2022 Time: 07:44 Bed DIS1 Private MD: Diagnosis: Small Bowel Obstruction Presentation: 02/22 08:15 Chief complaint: Patient states: Right mid abdominal pain started at 1900 last night, jl7 hx of small bowel obstruction. 08:15 Coronavirus screen: Vaccine status: Patient reports receiving the 2nd dose of the covid jl7 vaccine. At this time, the client does not indicate any symptoms associated with coronavirus-19. Ebola Screen: No symptoms or risks identified at this time. Initial Sepsis Screen: Does the patient meet any 2 criteria? No. Patient's initial sepsis screen is negative. Does the patient have a suspected source of infection? No. Patient's initial sepsis screen is negative. Risk Assessment: Do you want to hurt yourself or someone else? Patient reports no desire to harm self or others. Onset of symptoms was February 21, 2022 at 19:00. 08:15 Method Of Arrival: Ambulatory jl7 08:15 Acuity: HOLLEY 3 jl7 Triage Assessment: 08:15 General: Appears in no apparent distress. uncomfortable, Behavior is calm, cooperative, jl7 appropriate for age. Pain: Complains of pain in abdomen Pain currently is 9 out of 10 on a pain scale. GI: Abdomen is round Reports lower abdominal pain. Historical: - Allergies: 08:32 No Known Allergies; jl7 - Home Meds: 08:32 amlodipine 5 mg tab 1 tab once daily [Active]; omeprazole 40 mg Oral cpDR 1 cap once jl7 daily [Active]; - PMHx: 08:32 bowel obstruction; GERD; Hypertension; MICHELE; jl7 - Immunization history:: Client reports receiving the 2nd dose of the Covid vaccine. - Social history:: Smoking status: Patient denies any tobacco usage or history of. - Family history:: not pertinent. Screenin:40 [facility] ED Fall Risk Assessment (Adult) History of falling in the last 3 months, vg1 including since admission No falls in past 3 months (0 pts) Confusion or Disorientation No (0 pts) Intoxicated or Sedated No (0 pts) Impaired Gait No (0 pts) Mobility Assist Device Used No (0 pt) Altered Elimination No (0 pt) Score/Fall Risk Level 0 - 2 = Low Risk Oriented to surroundings, Maintained a safe environment, Educated pt \T\ family on fall prevention, incl call for assistance when getting out of bed, Assessed \T\ reinforced patient's understanding of fall precautions. Abuse screen: Denies threats or abuse. Nutritional screening: No deficits noted. Tuberculosis screening: No symptoms or risk factors identified. Assessment: 08:25 Reassessment: ERD in triage assessing pt. jl7 12:00 Reassessment: Patient appears in no apparent distress at this time. Patient is alert, vg1 oriented x 3, equal unlabored respirations, skin warm/dry/pink. pt was told by provider that needed to be transferred due to bowel obstruction, pt stated would go to [facility] due to surgeon being located there. Vital Signs: 08:15 BP 152 / 118; Pulse 82; Resp 17; Temp 97.5; Pulse Ox 99% on R/A; Weight 72.12 kg (R); jl7 Height 5 ft. 7 in. (170.18 cm); Pain 9/10; 12:00 BP 155 / 98; Pulse 76; Resp 14; Pulse Ox 98% on R/A; vg1 08:15 Body Mass Index 24.90 (72.12 kg, 170.18 cm) jl7 ED Course: 07:44 Patient arrived in ED. am2 08:15 Arm band placed on right wrist. jl7 08:26 Fly Mahmood MD is Attending Physician. rt 08:32 Triage completed. jl7 09:26 Lactate w/ 2H reflex if indic. Sent. rs5 09:26 Lipase Sent. rs5 09:26 CMP Sent. rs5 09:26 CBC with Diff Sent. rs5 09:26 Inserted saline lock: 22 gauge in right antecubital area, using aseptic technique. rs5 Blood collected. 09:40 Patient has correct armband on for positive identification. Bed in low position. vg1 10:01 CT Abd/Pelvis - IV Contrast Only In Process Unspecified. EDMS 11:18 initiated transfer to [facility] per pt request. bd 11:20 no beds at [facility]. No med surge bed available in [facility], per Tonie. bd 12:19 No provider procedures requiring assistance completed. IV discontinued, intact, vg1 bleeding controlled, No redness/swelling at site. Pressure dressing applied. Administered Medications: 09:35 Drug: NS 0.9% 1000 ml Route: IV; Rate: 1 bolus; Site: right antecubital; ap3 12:16 Follow up: IV Status: Completed infusion; IV Intake: 1000ml vg1 09:35 Drug: Zofran (Ondansetron) 4 mg Route: IVP; Site: right antecubital; ap3 12:16 Follow up: Response: No adverse reaction; Marked relief of symptoms vg1 Medication: 12:19 VIS not applicable for this client. vg1 Intake: 12:16 IV: 1000ml; Total: 1000ml. vg1 Outcome: 11:52 Discharge ordered by . rt 12:17 Discharged to home ambulatory. vg1 12:17 Condition: good 12:17 Discharge instructions given to patient, Instructed on discharge instructions, follow up and referral plans. Demonstrated understanding of instructions, follow-up care. 12:21 Patient left the ED. vg1 Signatures: Dispatcher [employer] EDMS Eboni Powell Jahala, RN RN jl7 Taylor Lima amTaylor Read RN RN ap3 Lin Fowler RN RN vg1 Fly Mahmood MD MD rt Rodriguez Hines rs5
[2022-02-22 12:35] VITALS: TEMP 97.5
[2022-02-22 12:40] VITALS: BP 155/98; O2SAT 98
== END 2022-02-22 12:21 | disposition home or self-care (01) ==
LOC: ER 07:38
DX: K56.609 Unspecified intestinal obstruction, unspecified as to partial versus complete obstruction (principal); I10 Essential (primary) hypertension
CPT/HCPCS: 85025; 36415; 83605; 83690; 80053; 74177; Q9967; J7030; J2405; 96361; 96374; 99284

== ENCOUNTER 2022-12-03 01:15 | Observation (INO) | payer BC ==
--- OUTSIDE RECORDS SUMMARY | 2022-12-03 01:21 | XMS REPORT | Continuity of Care Document ---
:1970 Author Organization [facility] t Address [address] [facility] [address] [place] [address] Care Team Providers Name Role Phone Sharpless Primary Care Physician Jesus Deluna Attending Clinician Unavailable Asia MUNIZ, Sandy Daniel Attending Clinician Mynor Alegre MD Attending Clinician MYNOR ALEGRE Admitting Clinician Unavailable Payers Payer Name Policy Type Policy Number Effective Date Expiration Date S rufino Blue Cross 6 [id number] 2017 [facility] t Blue Shield of 00:00:[address] - [facility] Problems Condition Condition Condition Status Onset Resolution Last Treating Co mments Source Name Details Category Date Date Treatment Clinician Date Intestinal Intestinal Disease Active 2022-0 M ethodi obstructio obstructio 02-22 st n, n, 00:00: Hospita unspecifie unspecifie 00 l d cause, d cause, unspecifie unspecifie d whether d whether partial or partial or complete complete Small Small Disease Active Methodi bowel bowel [...] Disease Active [facility] (hypertens (hypertens 06-24 [facility] ion) ion) 00:00: Medical 00 Center Abdominal Abdominal Disease Active [facility] pain, pain, 06-24 [facility] other other 00:00: Medical specified specified 00 Cent er site site Small Small Disease Active [facility] bowel bowel 06-20 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 [facility] Iron Iron Problem Active Common deficiency deficiency Sp kd anemia due anemia due - CHI to chronic to chronic blood loss blood loss [facility] Iron Other iron Problem Active Commo n deficiency deficiency Sp kd anemia anemia - [facility] [id number] HTN Problem Active Common (hypertens Spirit ion), - CHI benign [facility] [id number] History of Problem Active C ommon [id number] small Spirit bowel - CHI obstructio [facility] [id number] 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 inadequate Medica l dietary Center iron intake [id number] Drug-induc Problem Active Com mon ed Spirit constipati - [facility] on [facility] Acquired Acquired Problem Active Commo n iron iron Spirit deficiency deficiency - [facility] anemia due anemia due St to to [facility] decreased decreased Medi fito absorption absorption Ce nter Anemia due Anemia, Problem Active Comm on to blood blood loss Spir it loss - 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 - [facility] ion ion, not St (disorder) elsewhere Mraisel es classified Medica l Center Allergies, Adverse Reactions, Alerts Allergy Allergy Status Severity Reaction(s) Onset Inactive Treating Comm ents Source Name Type Date Date Clinician KETOROLA Allergy Active Nausea [facility] Ketorola Propensi Active Nausea Only C HI [facility] c ty to [facility]20 [facility] adverse 00:00: Medical reaction 00 Center s Family History Family Member Diagnosis Comments Start Date Stop Date Source Natural father Hypertension [facility] Social History Social Habit Start Date Stop Date Quantity Comments Source History of Tobacco [facility] - Use [facility] Sexual orientation [facility] History of Social 2022-04-27 2022-04-[address] function 00:00:00 00:00:00 Hospital Tobacco use and 2017-11-26 2017-11-26 Smokeless [facility] exposure 00:00:00 00:00:00 tobacco non-user Hospital Alcohol Comment 2016-01-06 2016-01-06 social [facility] 00:00:00 00:00:00 [facility] Alcohol intake 2014-06-20 2014-06-20 Current drinker [facility] S t [facility] 00:00:00 00:00:00 of alcohol [facility] (finding) Sex Ass[birth year] At [birth year] [facility] 00:00:00 00:00:00 Medical Center Smoking Status Start Date Stop Date Source Never Smoker [facility] - [facility] Medications Ordered Filled Start Stop Current Ordering Indication Dosage Frequency Signature Comments Components Source Medication Medication Date Date Medication? Clinician (SIG) Name Name omeprazole Yes 20mg QD Take 1 Metho di (PriLOSEC) 1-[address] 20 MG 13:30: (20 mg Hospita capsule 28 total) by l mouth daily before breakfast. amLODIPine Yes 5mg QD Take 5 mg Me thodi (NORVASC) 5 1-[address] MG tablet 13:30: daily. Hospit a 28 l polyethylen 2022- No 17g QD Take 17 g Methodi e glycol 02-24-[address] (MIRALAX) 00:00: 05:59 daily for Ho spita 17 gram 00 :00 30 days. l packet Tamiflu 75 Tamiflu 75 No 1{capsu QD Tamiflu 75 MG MG 4-15 le} MG 00:00: 00 Tamiflu 75 Tamiflu 75 No 1{capsu QD Tamiflu 75 MG MG 4-15 le} MG 00:00: 00 Tamiflu 75 Tamiflu 75 No 1{capsu QD Tamiflu 75 MG MG 4-15 le} MG 00:00: 00 Azithromyci Azithromyci 2020- No QD Azithromyc n 250 MG n 250 MG 11-17 in 250 MG 00:00: 00:00 00 :00 uFaber Kenalog 0 No 40mg Common (Triamcinol (Triamcinol 3-10 S pirit one) one) 00:00: - [facility]I 00 [facility] Kenalog Kenalog 2019-0 No 40mg Common (Triamcinol (Triamcinol 3-10 S pirit one) one) 00:00: - [facility]I 00 [facility] Kenalog Kenalog 2019-0 No 40mg Common (Triamcinol (Triamcinol 3-10 S pirit one) one) 00:00: - [facility]I 00 [facility] amLODIPine 2018-0 Yes 5mg QD Take 5 mg Me thodi (NORVASC) 5 3-[address] MG tablet 12:25: daily. Hospit a 09 l omeprazole Yes 40mg QD Take 40 mg M ethodi (PriLOSEC) 3-[address] 40 MG 12:25: daily. Hospita capsule 09 l omeprazole Yes 40mg QD Take [address] (PRILOSEC) 5-05 by mouth [facility] 40 MG 16:36: daily. Medical capsule 35 Center omeprazole Yes 40mg QD Take [address] (PRILOSEC) 5-05 by mouth [facility] 40 MG 16:36: daily. Medical capsule 35 Center Amlodipine Amlodipine Yes Jesus 1 tablet Common Besylate Besylate Deluna [facility] Omeprazole Omeprazole Yes Jesus 1 capsule Common Deluna [facility] Ferrous Ferrous Yes Jesus 1 tablet Com mon Sulfate Sulfate Deluna [facility] Amitiza Amitiza Yes Jesus 1 capsule Co mmon Deluna with food [facility] Restasis Restasis Yes Jesus 1 drop Com mon Deluna into [facility] eye [facility] Amitiza 8 Amitiza 8 No 1{capsu BID [...] MG ER 100 MG ER 100 MG Immunizations Ordered Filled Immunization Date Status Comments Sourc e Immunization Name Name Mateus Ignacio 2019-04-30 Completed [facility] - (Triamcinolone) (Triamcinolone) 14:12:[address] [facility] Mateus Ignacio 2019-04-30 Completed [facility] - (Triamcinolone) (Triamcinolone) 14:12:[address] [facility] Kenalog Kenalog 2019-04-30 Completed [facility] - (Triamcinolone) (Triamcinolone) 14:12:[address] [facility] Kenalog Alanalog 2019-04-30 Completed [facility] - (Triamcinolone) (Triamcinolone) 14:12:[address] [facility] Mateus Ignacio 2019-04-30 Completed [facility] - (Triamcinolone) (Triamcinolone) 14:12:[address] [facility] Alanalog Mateus 2019-04-30 Completed [facility] - (Triamcinolone) (Triamcinolone) 14:12:[address] [facility] FLUZONE QUAD PF 2016-01-24 Completed [facility] 00:00:00 Hospital Influenza, Unknown Completed [facility] Injectable, Hospital Quadrivalent, Preservative Free PFIZER COVID-19 Unknown Completed [facility] MRNA VACCINATION Hospital PFIZER COVID-19 Unknown Completed [facility] VACC[facility]ATION Hospital PFIZER COVID-19 Unknown Completed [facility] VACCINATION Hospital Vital Signs Vital Name Observation Time Observation Value Comments Source height 2020-11-17 09:20:00 67 [in_i] [facility] weight 2020-11-17 09:20:00 155.6 [lb_av] [facility] temperature 2020-11-17 09:20:00 98.0 [degF] [facility] bmi 2020-11-17 09:20:00 24.37 kg/m2 [facility] oximetry 2020-11-17 09:20:00 99 % [facility] respiratory rate 2020-11-17 09:20:00 17 /min Comm on [facility] blood pressure 2020-11-17 09:20:00 136 mm[Hg] Common [facility] - systolic [facility] blood pressure 2020-11-17 09:20:00 71 mm[Hg] [facility] - diastolic [facility] Systolic blood 2022-02-24 15:57:31 134 mm[Hg] [facility] pressure Diastolic blood 2022-02-24 15:57:31 92 mm[Hg] [facility] pressure Heart rate 2022-02-24 15:57:31 64 /min [facility] Oxygen saturation in 2022-02-24 15:57:31 96 /min [facility] Arterial blood by Pulse oximetry Body temperature 2022-02-24 15:56:46 36.56 Noem[facility] Respiratory rate 2022-02-24 15:56:46 18 /min [facility] Body height 2022-02-22 19:46:00 170.2 cm [facility] Body weight 2022-02-22 19:46:00 72.122 kg [facility] BMI 2022-02-22 19:46:00 24.90 kg/m2 [facility] Procedures Procedure Date / Time Performing Clinician Source Performed CT ABDOMEN PELVIS W 2022-02-23 00:03:[address] [facility] CONTRAST URINE CULTURE 2022-02-22 22:48:00 Asia [facility] URINALYSIS SCREEN AND 2022-02-22 22:48:00 [facility], WITH REFLEX TO CULTURE COVID-19, INFLUENZA A&B, 2022-02-22 22:11:00 Asia [facility] AND RSV QUALITATIVE RT-PCR CBC WITH PLATELET AND 2022-02-22 21:40:00 [facility] DIFFERENTIAL COMPREHENSIVE METABOLIC 2022-02-22 21:40:00 [facility] PAN[facility] LIPASE LEVEL 2022-02-22 21:40:00 [facility] 2022-02-22 21:40:00 [facility] Plan of Care Planned Activity Planned Date Details Comments Source Future Scheduled 2022-12-02 Screening for [facility] Test 08:33:21 malignant neoplasm of colon (procedure) [code = 345087675] Future Scheduled 2022-12-02 Screening for [facility] Test 08:33:21 malignant neoplasm of colon (procedure) [code = 753293996] Future Scheduled 2022-12-02 Screening for [facility] Test 08:33:21 malignant neoplasm of colon (procedure) [code = 210371386] Future Scheduled 2022-12-02 Hepatitis C screening [facility] Test 08:33:21 (procedure) [code = 123010759] Future Scheduled 2022-12-02 Screening for [facility] Test 08:33:21 malignant neoplasm of colon (procedure) [code = 605392231] Future Scheduled 2022-12-02 Screening for [facility] Test 08:33:21 malignant neoplasm of colon (procedure) [code = 357008403] Future Scheduled 2022-12-02 SHINGLES VACCINES (1 Met [facility] Test 08:33:21 of 2) [code = SHINGLES VACCINES (1 of 2)] Future Scheduled 2022-12-02 COVID-19 VACCINE (4 - [facility] Test 08:33:21 season) [code = COVID-19 VACCINE (4 - season)] Future Scheduled 2022-12-02 INFLUENZA VACCINE Method [facility] Test 08:33:21 (#1) [code = INFLUENZA VACCINE (#1)] Future Scheduled 2022-12-02 RSV VACCINES > 60 YR Met [facility] Test 08:33:21 (1 - 1-dose 60+ series) [code = RSV VACCINES > 60 YR (1 - 1-dose 60+ series)] Future Scheduled 2022-02-04 COVID-19 VACCINE (#1) [facility] Test 18:01:57 [code = COVID-19 VACCINE (#1)] Future Scheduled 2022-02-04 COLONOSCOPY SCREENING [facility] Test 18:01:57 [code = COLONOSCOPY SCREENING] Future Scheduled 2022-02-04 SHINGLES VACCINES (1 Met [facility] Test 18:01:57 of 2) [code = SHINGLES VACCINES (1 of 2)] Future Scheduled 2022-02-04 INFLUENZA VACCINE Method [facility] Test 18:01:57 [code = INFLUENZA VACCINE] Encounters Start End Encounter Admission Attending Care Care Encounter Source Date/Time Date/Time Type Type Clinicians Facility Department ID 2022-09-08 Outpatient Deluna, [facility] [id number] Common 16:14:00 Formerly [facility] [id number] [facility] 2021-03-19 Outpatient Deluna, STLMLC STLMLC [id number] Common 10:58:00 Jesus [facility] 2021-03-17 Outpatient Deluna, STLMLC STLMLC [id number] Common 14:01:31 Jesus 29486 [facility] 2021-03-17 Outpatient Deluna, STLMLC STLMLC [id number] Common 12:29:42 Jesus 28131 [facility] 2021-03-17 Outpatient Deluna, STLMLC STLMLC [id number] Common 12:25:45 Jesus [id number] [facility] 2022-02-22 2022-02-24 [facility] Sandy Betancourt [id number] Methodi 13:48:00 13:30:00 Encounter Mynor Alegre [id number] Hospit a .[id number] l .8 2022-02-22 2022-02-24 [facility] [id number] [place] 00:00:00 00:00:00 MYNOR [address] 2022-02-22 2022-02-22 Travel [id number] Methodi 00:00:00 00:00:[id number] 3.430.2.7 [id number] [facility] .3.258714 084.8 l .8 2021-06-04 2021-06-04 (TEL) STLC STLMLC [id number] Co mmon 00:00:00 00:00:00 [facility] 2021-06-04 2021-06-04 (TEL) STLMLC STLMLC [id number] Co mmon 00:00:00 00:00:00 [facility] 2021-01-12 2021-01-12 (WEB) STLMLC STLMLC [id number] Co mmon 00:00:00 00:00:00 [facility] 2021-01-11 2021-01-11 (WEB) STLMLC STLMLC [id number] Co mmon 00:00:00 00:00:00 [facility] 2020-12-22 2020-12-22 (WEB) STLMLC STLMLC [id number] Co mmon 00:00:00 00:00:00 [facility] 2020-12-21 2020-12-21 (WEB) STLMLC STLMLC [id number] Co mmon 00:00:00 00:00:00 [facility] 2020-12-21 2020-12-21 (WEB) STLMLC STLMLC [id number] Co mmon 00:00:00 00:00:00 [facility] 2020-12-21 2020-12-21 (WEB) STLMLC STLMLC [id number] Co mmon 00:00:00 00:00:00 [facility] 2020-12-09 2020-12-09 (WEB) STLMLC STLMLC [id number] Co mmon 00:00:00 00:00:00 [facility] 2020-11-17 2020-11-17 OFFICE STLMLC STLMLC [id number] Co mmon 00:00:00 00:00:00 VISIT [facility] 2020-11-16 2020-11-16 (TEL) STLMLC STLMLC [id number] Co mmon 00:00:00 00:00:00 [facility] 2020-07-10 2020-07-10 (TEL) STLMLC STLMLC [id number] Co mmon 00:00:00 00:00:00 [facility] 2020-07-08 2020-07-08 (TEL) STLMLC STLMLC [id number] Co mmon 00:00:00 00:00:00 [facility] 2020-05-01 2020-05-01 Outpatient STLMLC STLMLC [id number] Common 00:00:00 00:00:00 [facility] 2020-04-01 2020-04-01 Outpatient STLMLC STLMLC [id number] Common 00:00:00 00:00:00 [facility] 2020-03-19 2020-03-19 Outpatient STLMLC STLMLC [id number] Common 00:00:00 00:00:00 [facility] 2020-03-18 2020-03-18 Outpatient STLMLC STLMLC [id number] Common 00:00:00 00:00:00 [facility] 2019-09-18 2019-09-18 [facility] [id number] Common 11:54:00 11:54:[address] [facility] 2019-06-25 2019-06-25 [facility] [id number] Common 14:12:00 14:12:[address] [facility] 2019-04-30 2019-04-30 [facility] [id number] Common 13:45:00 13:45:[address] [facility] 2019-02-04 2019-02-04 [facility] [id number] Common 11:33:00 11:33:[address] [facility] 2018-12-26 2018-12-26 [facility] [id number] Common 11:30:00 11:30:[address] [facility] 2018-12-18 2018-12-18 [facility] [id number] Common 14:08:00 14:08:[address] [facility] 2018-09-10 2018-09-10 [facility] [id number] Common 13:00:00 13:00:[address] [facility] 2018-05-17 2018-05-17 [facility] [id number] Common 06:47:00 06:47:00 [place] [facility] 2018-05-16 2018-05-16 [facility] [id number] Common 09:58:00 09:58:[address] [facility] 2018-05-10 2018-05-10 [facility] [id number] Common 09:30:00 09:30:[address] [facility] 2017-07-21 2017-07-21 [facility] [id number] Common 08:30:00 08:30:[address] [facility] 2017-07-04 2017-07-04 [facility] [id number] Common 16:42:00 16:42:[address] [facility] 2017-06-19 2017-06-19 [facility] [id number] Common 16:16:00 16:16:[address] [facility] 2017-06-15 2017-06-15 [facility] [id number] Common 15:56:00 15:56:[address] [facility] 2017-06-15 2017-06-15 [facility] [id number] Common 13:12:00 13:12:[address] [facility] 2017-06-15 2017-06-15 [facility] [id number] Common 08:00:00 08:00:[address] [facility] Results Test Description Test Time Test Comments Results Result Comments Source Urine culture 2022-02-22 23:10:00 Test Item Value Reference Range Interpretation Comme nts Urine culture (test code = 7576129) SEE COMMENT Bacteriuria screen negative. [facility] Hospital[facility] virus A and B [id number] 19:38:25 Test Item Value Reference Range Interpretation Comments SARS-CoV-2 (COVID-19) RNA Not detected [Presence] in Respiratory specimen by RICHIE with probe detection (test code = 43510-1) Whether patient resides in a No congregate care setting (test code = 29625-5) Date and time of symptom onset Unknown (test code = 15214-3) Whether the patient was No hospitalized for condition of interest (test code = 53093-6) Whether the patient was admitted No to intensive care unit (ICU) for condition of interest (test code = 30838-4) Whether patient is employed in a No healthcare setting (test code = 94439-8) Whether the patient has symptoms No related to condition of interest (test code = 87031-1) status (test code = No 01967-5) ZAIDA CHILDS
[2022-12-03 01:45] LABS: Absolute Lymphocytes (CBC) 0.9 K/uL (0.7-4.9); Hematocrit 36.9 % (39.6-49.0); Lymphocytes % 10.5 % (15.3-44.8); MCV 89.4 fL (80-100); MPV 7.6 fL (7.6-11.3); Platelets 221 thou/uL (152-406); RBC Red Blood Cell Count 4.13 M/uL (4.33-5.43)
[2022-12-03 01:48] LABS: Protime INR 0.99
[2022-12-03] MEDS ORDERED: NA CHLORIDE 0.9% 1,000 ML ONE (01:50)
[2022-12-03 02:06] LABS: Albumin 3.5 g/dL (3.4-5.0); Bilirubin Direct 0.2 mg/dL (0-0.2); Bilirubin Indirect, Calculated 0.4 mg/dL (0.2-0.8); Bilirubin Total 0.6 mg/dL (0.2-1.0); Potassium 2.9 mEq/L (3.5-5.1); Protein, Total 6.9 g/dL (6.4-8.2); Troponin High Sensitivity 16.5 pg/mL (<58.9)
[2022-12-03] MEDS ORDERED: MORPHINE 4 MG/ML SYR ONE (02:44)
[2022-12-03] MEDS ORDERED: ONDANSETRON 4 MG/2 ML VIAL ONE (02:44)
[2022-12-03] MEDS ORDERED: POTASSIUM CL SA 10 MEQ TAB PO ONE (02:55)
[2022-12-03] MEDS ORDERED: NA CHLORIDE 0.9% 250 ML ONE (02:55)
[2022-12-03] MEDS ORDERED: KCL 20 MEQ/100 mL IVPB 100 ML IV ONE (02:55)
[2022-12-03] MEDS ORDERED: NA CHLORIDE 0.9% 500 ML ONE (03:30)
--- NOTE | 2022-12-03 03:56 | EDPHYS ---
Physician Documentation [facility] Name: Kayy Carvajal Age: 52 yrs Sex: Male : 1970 Arrival Date: 12/03/2022 Time: 01:15 Bed 7 Private MD: ED Physician Efra Adrian HPI: 12/03 01:19 This 52 yrs old Male presents to ER via Unassigned with complaints of alcohol sp4 intox, near syncope. 01:19 PMH - Historical: Allergies: No Known Allergies Home Meds: amlodipine 5 mg tab 1 tab sp4 once daily; omeprazole 40 mg Oral 1 cap once daily PMHx: bowel obstruction; GERD; Hypertension; MICHELE; . 02:32 52-year-old male from [facility] with history of prior obstructive bowel multiple abdominal sp4 surgeries, lysis of adhesions, GERD hypertension, history of alcohol use, presents with acute onset of generalized weakness near syncopal episode, after consuming 2 reported fevers at home. Patient states he has collapsed to the ground in the parking lot and developed headache. Denies any vomiting. Patient arrived with EMS for evaluation of near syncopal episode generalized weakness and dizziness. Also reported concurrent headache. Historical: - PMHx: 01:24 bowel obstruction; GERD; Hypertension; MICHELE; iw - Immunization history:: Adult Immunizations up to date. - Family history:: not pertinent. - Social history:: Smoking status: unknown. ROS: 02:32 Constitutional: Negative for fever, chills, and weight loss, positive generalized sp4 weakness, near syncope, headache, collapsed to the ground 02:32 All other systems are negative, Exam: 02:32 Constitutional: This is a well developed, well nourished patient who is awake, alert, sp4 and in no acute distress. Positive generalized weakness mild intoxication. Head/Face: Normocephalic, atraumatic. Eyes: Pupils equal round and reactive to light, extra-ocular motions intact. Lids and lashes normal. Conjunctiva and sclera are not injected. Cornea within normal limits. Periorbital areas with no swelling, redness, or edema. ENT: Nares patent. No nasal discharge, no septal abnormalities noted. Tympanic membranes are normal and external auditory canals are clear. Oropharynx with no redness, swelling, or masses, exudates, or evidence of obstruction, uvula midline. Mucous membranes moist. Neck: Trachea midline, no thyromegaly or masses palpated, and no cervical lymphadenopathy. Supple, full range of motion without nuchal rigidity, or vertebral point tenderness. Chest/axilla: Normal chest wall appearance and motion. Nontender with no deformity. No lesions are appreciated. Cardiovascular: Regular rate and rhythm with a normal S1 and S2. No gallops, murmurs, or rubs. Normal PMI, no JVD. No pulse deficits. Respiratory: Lungs have equal breath sounds bilaterally, clear to auscultation and percussion. No rales, rhonchi or wheezes noted. No increased work of breathing, no retractions or nasal flaring. Abdomen/GI: Soft, non-tender, with normal bowel sounds. No distension or tympany. No guarding or rebound. No evidence of tenderness throughout. Multiple extensive scars from prior surgeries Back: No spinal tenderness. No costovertebral tenderness. Skin: Warm, dry with normal turgor. Normal color with no rashes, no lesions, and no evidence of cellulitis. MS/ Extremity: Pulses equal, no cyanosis. Neurovascular intact. Full, normal range of motion. Neuro: Awake and alert, GCS 15, oriented to person, place, time, and situation. Cranial nerves II-XII grossly intact. Motor strength 5/5 in all extremities. Sensory grossly intact. Psych: Awake, alert, with orientation to person, place and time. Behavior, mood, and affect are within normal limits 02:32 ECG was reviewed by the Attending Physician. EKG time 0 127, there is normal sinus rhythm with a rate of 82, no ST elevation or depression, no ectopy, overall normal EKG Vital Signs: 01:44 BP 147 / 85; Pulse 77; Resp 17; Pulse Ox 100% on R/A; rv 05:15 BP 126 / 91; Pulse 65; Resp 15; Temp 98; Pulse Ox 97% on R/A; rv NIH Stroke Scale Scores: 02:32 NIHSS Score: 0 sp4 Prasanth Coma Score: 02:32 Eye Response: spontaneous(4). Motor Response: obeys commands(6). Verbal Response: sp4 oriented(5). Total: 15. 05:15 Eye Response: spontaneous(4). Motor Response: obeys commands(6). Verbal Response: rv oriented(5). Total: 15. MDM: 01:18 Patient medically screened. sp4 03:49 ED course: Chest X ray - CLINICAL HISTORY: 52 years Male, near syncope COMPARISON: sp4 None. FINDINGS: Single portable AP semiupright view of the chest. Prominence of the cardiac silhouette probably exacerbated due to AP technique. No consolidation. No pleural effusion or pneumothorax. No pulmonary vascular congestion. No acute osseous abnormality. IMPRESSION: No acute radiographic abnormality. Electronically signed by: Maureen Duvall MD 12/03/2022 2:00 AM. ED course: CT - FINDINGS: Multiple transaxial tomograms of the brain were obtained from the base of the skull to the vertex without contrast. 2-D multiplanar reformats and the coronal and sagittal plane were performed and reviewed. This exam was performed according to our departmental dose-optimization protocol, which includes automated exposure control, adjustment of the mA and/or kV according to patient size and/or use of iterative reconstruction technique. Brain parenchyma as well as the hairston and white matter differentiation demonstrate to be unremarkable. There is no midline shift and/or mass effect. There is no evidence for acute hemorrhage. There are no focal areas of hypodensities. Lateral ventricles and cisterns displace normal appearance. No intra or extra axial fluid collections were seen. The calvarium is intact with no evidence for fracture. The visualized portions of the paranasal sinuses and orbits demonstrate to be clear. IMPRESSION: No acute intracranial hemorrhage identified. Unremarkable CT scan of the head without contrast. . ED course: Patient has hyponatremia and hypokalemia near syncopal episode probably secondary to excessive beer consumption. Patient at this time warrants admission for electrolyte correction.. 03:55 Differential Diagnosis altered mental status, sepsis, flu. Data reviewed: vital signs, sp4 nurses notes, EMS record, lab test result(s), cardiac enzymes, CBC, electrolytes, hepatic panel, urinalysis, EKG, radiologic studies, CT scan, plain films. 12/04 00:45 Consideration of Admission/Observation Patient was admitted/placed on observation. sp4 Escalation of care including admission/observation considered. Management of patient was discussed with the following: Hospitalist: with Admission team . ED course: Patient has improved overall but he requires IV hydration for electrolyte correction. Admitted for observation in stable condition. 12/03 01:18 Order name: Basic Metabolic Panel; Complete Time: 02:30 12/03 01:18 Order name: CBC with Diff; Complete Time: 02:30 12/03 01:18 Order name: LFT's; Complete Time: 02:30 12/03 01:18 Order name: Magnesium; Complete Time: 02:30 12/03 01:18 Order name: NT PRO-BNP; Complete Time: 02:30 12/03 01:18 Order name: PT-INR; Complete Time: 02:30 12/03 01:18 Order name: Troponin HS; Complete Time: 02:30 12/03 01:18 Order name: Alcohol Level; Complete Time: 02:30 12/03 03:52 Order name: Osmolality, Serum; Complete Time: 00:46 12/03 03:52 Order name: Urine Sodium Random; Complete Time: 04:14 12/03 03:52 Order name: Urine Potassium Random; Complete Time: 04:14 12/03 03:52 Order name: Urine Osmolality; Complete Time: 00:47 12/03 03:52 Order name: Urine Creatinine; Complete Time: 00:46 12/03 08:16 Order name: Basic Metabolic Panel; Complete Time: 00:46 EDMS 12/03 08:16 Order name: Phosphorus; Complete Time: 00:47 MS 12/03 08:16 Order name: Troponin High Sensitivity; Complete Time: 00:47 EDMS 12/03 08:16 Order name: T4 Free; Complete Time: 00:47 EDMS 12/03 08:16 Order name: Magnesium; Complete Time: 00:47 MS 12/03 08:16 Order name: Thyroid Stimulating Hormone; Complete Time: 00:47 MS 12/03 01:18 Order name: XRAY Chest (1 view); Complete Time: 00:47 12/03 01:30 Order name: CT Head Brain wo Cont; Complete Time: 00:47 12/03 01:18 Order name: EKG; Complete Time: 01:19 12/03 01:18 Order name: Cardiac monitoring; Complete Time: :43 12/03 01:18 Order name: EKG - Nurse/Tech; Complete Time: :43 12/03 01:18 Order name: IV Saline Lock; Complete Time: 01:43 sp4 12/03 01:18 Order name: Labs collected and sent; Complete Time: :43 sp4 12/03 01:18 Order name: O2 Per Protocol; Complete Time: :43 sp4 12/03 01:18 Order name: O2 Sat Monitoring; Complete Time: :43 sp4 EC/14 02:32 Rate is 82 beats/min. Rhythm is regular, Normal Sinus Rhythm. QRS Bighorn is Normal. AK sp4 interval is normal. QRS interval is normal. QT interval is normal. No Q waves. T waves are Normal. No ST changes noted. Clinical impression: No evidence of ischemia. Interpreted by me. Reviewed by me. Administered Medications: 01:41 Drug: NS 0.9% IV 1000 ml IV at 1 bolus Per protocol; 1000 mL bolus Route: IV; Rate: 1 rv bolus; Site: right forearm; 02:34 Drug: morphine IVP or IV 4 mg IVP once over 4 mins Route: IVP; Infused Over: 4 mins; rv Site: right forearm; 04:54 Follow up: Response: No adverse reaction rv 02:34 Drug: Ondansetron IVP 4 mg IVP once; over 2 minutes Route: IVP; Site: right forearm; rv 04:54 Follow up: Response: No adverse reaction rv 02:51 Drug: Potassium Chloride PO 40 mEq PO once Route: PO; rv 04:53 Follow up: Response: No adverse reaction rv 02:51 Drug: Potassium Chloride IV 20 mEq IV at calculated rate once; administer over 1-2 rv hours Route: IV; Rate: calculated rate; Site: right forearm; 04:53 Follow up: IV Status: Completed infusion; IV Intake: 100ml rv 06:53 Not Given (not appropriate at this timee): [id number] mg 10 mg IVP once iw Disposition Summary: 12/03/22 03:55 Hospitalization Ordered Notes: Hospitalization Status: Observation sp4 Provider: Angel Barksdale Condition: Stable sp4 Problem: new sp4 Symptoms: have improved sp4 Bed/Room Type: Standard sp4 Location: [facility] ER HOLD(12/03/22 04:57) cg Room Assignment: ERHOLD-(12/03/22 04:57) cg Diagnosis - Hypo-osmolality and hyponatremia sp4 - Near syncopal episode, hypokalemia, alcohol intoxication sp4 Forms: - Medication Reconciliation Form sp4 - SBAR form sp4 - Leadership Thank You Letter sp4 NIH Stroke Scale - NIH Stroke Score Date: 12/03/2022 Time: 02:32 Total Score = 0 10. Dysarthria (speech clarity - read or repeat words) - 0(Normal) 11. Extinction and Inattention (visual/tactile/auditory/spatial/personal) - 0(No abnormality) 1a. Level of Consciousness (LOC) - 0(Alert) 1b. Level of Consciousness (LOC) (Month \T\ Age) - 0(Both) 1c. LOC Commands (Open \T\ Closes Eyes/Sales Representative Livestock) - 0(Both) 2. Best Gaze (Lateral Gaze Paresis) - 0(Normal) 3. Visual Field Loss - 0(No visual loss) 4. Facial Palsy - 0(Normal) 5a. Left Arm: Motor (10-second hold) - 0(No drift) 5b. Right Arm: Motor (10-second hold) - 0(No drift) 6a. Left Leg: Motor (5-second hold - always test supine) - 0(No drift) 6b. Right Leg: Motor (5-second hold - always test supine) - 0(No drift) 7. Limb Ataxia (finger/nose \T\ heel/gaspar - test with eyes open) - 0(Absent) 8. Sensory Loss (pinprick arms/legs/face) - 0(Normal) 9. Best Language: Aphasia (description/naming/reading) - 0(No aphasia) Initials: sp4 Signatures: Dispatcher [employer] Pamela Lundberg RN RN iw Garcia, Cindy, RN RN cg Vicente, Ronaldo, RN RN rv Bradberry, Kelly, RN RN kb3 Efra Adrian MD MD sp4 Corrections: (The following items were deleted from the chart) 04:57 03:55 Telemetry/MedSurg (observation) sp4 04:57 03:55 sp4
--- NOTE | 2022-12-03 03:56 | ER ---
Nurse's Notes [facility] Name: Kayy Carvajal Age: 52 yrs Sex: Male : 1970 Arrival Date: 12/03/2022 Time: 01:15 Bed 7 Private MD: Diagnosis: Hypo-osmolality and hyponatremia;Near syncopal episode, hypokalemia, alcohol intoxication Presentation: 12/03 01:23 Chief complaint: EMS states: probable ETOH abuse , did no fall or hit his head , pt c/o iw generalized weakness and dizziness. Coronavirus screen: At this time, the client does not indicate any symptoms associated with coronavirus-19. Ebola Screen: Patient negative for fever greater than or equal to 101.5 degrees Fahrenheit, and additional compatible Ebola Virus Disease symptoms Patient denies exposure to infectious person. Patient denies travel to an Ebola-affected area in the 21 days before illness onset. No symptoms or risks identified at this time. Initial Sepsis Screen: Does the patient meet any 2 criteria? No. Patient's initial sepsis screen is negative. Does the patient have a suspected source of infection? No. Patient's initial sepsis screen is negative. Risk Assessment: Do you want to hurt yourself or someone else? Patient reports no desire to harm self or others. Onset of symptoms was December 03, 2022. 01:23 Method Of Arrival: EMS: [facility] iw 01:23 Acuity: HOLLEY 3 iw Historical: - PMHx: 01:24 bowel obstruction; GERD; Hypertension; MICHELE; iw - Immunization history:: Adult Immunizations up to date. - Family history:: not pertinent. - Social history:: Smoking status: unknown. Screenin:44 [facility] ED Fall Risk Assessment (Adult) History of falling in the last 3 months, rv including since admission Yes- single mechanical fall (1 pt) Confusion or Disorientation No (0 pts) Intoxicated or Sedated Yes (3 pts) Impaired Gait No (0 pts) Mobility Assist Device Used No (0 pt) Altered Elimination No (0 pt) Score/Fall Risk Level 3 or more points = High Risk Oriented to surroundings, Maintained a safe environment, Educated pt \T\ family on fall prevention, incl call for assistance when getting out of bed, Assessed \T\ reinforced patient's understanding of fall precautions, Provided non-skid footwear, Hourly rounding (assess needs \T\ fall precautionary measures) done, Used ambulatory aids as needed (educated on \T\ assisted with), Used gait belt as appropriate Implemented a Fall Risk Plan of Care, Apply high fall risk patient identification: yellow non skid footwear/ fall signage, Placed fall mat w/ non beveled edge next to bed, Activated bed/chair alarm, Remained w/in arm's length of patient and in sight while toileting, Offered frequent toileting (1:1 observation), Remained with patient while ambulating, Utilized family, sitter, or virtual project administrator as indicated. Abuse screen: Denies threats or abuse. Denies injuries from another. Nutritional screening: No deficits noted. Tuberculosis screening: No symptoms or risk factors identified. Assessment: 01:43 General: Appears comfortable, Behavior is calm, cooperative. Pain: Complains of pain in rv HEAD. Neuro: Level of Consciousness is awake, alert, obeys commands, Oriented to person, place, time, situation, Reports TROUBLE BALANCING. Cardiovascular: Capillary refill < 3 seconds Patient's skin is warm and dry. Respiratory: Airway is patent Respiratory effort is even, unlabored. GI: No signs and/or symptoms were reported involving the gastrointestinal system. : No signs and/or symptoms were reported regarding the genitourinary system. Derm: Skin is intact. Vital Signs: 01:44 BP 147 / 85; Pulse 77; Resp 17; Pulse Ox 100% on R/A; rv 05:15 BP 126 / 91; Pulse 65; Resp 15; Temp 98; Pulse Ox 97% on R/A; rv Gallaway Coma Score: 02:32 Eye Response: spontaneous(4). Motor Response: obeys commands(6). Verbal Response: sp4 oriented(5). Total: 15. 05:15 Eye Response: spontaneous(4). Motor Response: obeys commands(6). Verbal Response: rv oriented(5). Total: 15. NIH Stroke Scale Scores: 02:32 NIHSS Score: 0 sp4 ED Course: 01:17 Patient arrived in ED. ha1 01:18 Efra Adrian MD is Attending Physician. sp4 01:24 Triage completed. iw 01:44 Patient has correct armband on for positive identification. Client placed on continuous rv cardiac and pulse oximetry monitoring. NIBP monitoring applied. porter baggage on. 01:44 Inserted saline lock: 20 gauge in right forearm, using aseptic technique. Blood rv collected. 01:46 XRAY Chest (1 view) In Process Unspecified. EDMS 02:05 CT Head Brain wo Cont In Process Unspecified. EDMS 02:11 Lex Badillo, TERRY is Primary Nurse. rv 03:54 Angel Barksdale MD is Hospitalizing Provider. sp4 05:14 Arm band placed on. rv 05:14 No provider procedures requiring assistance completed. Patient admitted, IV remains in rv place. Administered Medications: 01:41 Drug: NS 0.9% IV 1000 ml IV at 1 bolus Per protocol; 1000 mL bolus Route: IV; Rate: 1 rv bolus; Site: right forearm; 02:34 Drug: morphine IVP or IV 4 mg IVP once over 4 mins Route: IVP; Infused Over: 4 mins; rv Site: right forearm; 04:54 Follow up: Response: No adverse reaction rv 02:34 Drug: Ondansetron IVP 4 mg IVP once; over 2 minutes Route: IVP; Site: right forearm; rv 04:54 Follow up: Response: No adverse reaction rv 02:51 Drug: Potassium Chloride PO 40 mEq PO once Route: PO; rv 04:53 Follow up: Response: No adverse reaction rv 02:51 Drug: Potassium Chloride IV 20 mEq IV at calculated rate once; administer over 1-2 rv hours Route: IV; Rate: calculated rate; Site: right forearm; 04:53 Follow up: IV Status: Completed infusion; IV Intake: 100ml rv 06:53 Not Given (not appropriate at this timee): [id number] mg 10 mg IVP once iw Medication: 01:45 VIS not applicable for this client. rv Intake: 04:53 IV: 100ml; Total: 100ml. rv Outcome: 03:55 Decision to Hospitalize by Provider. sp4 05:14 Admitted to ER Hold. Please see [facility] for further documentation. rv 05:14 Condition: stable 05:14 Instructed on the need for admit, 12:07 Patient left the ED. hb NIH Stroke Scale - NIH Stroke Score Date: 12/03/2022 Time: 02:32 Total Score = 0 10. Dysarthria (speech clarity - read or repeat words) - 0(Normal) 11. Extinction and Inattention (visual/tactile/auditory/spatial/personal) - 0(No abnormality) 1a. Level of Consciousness (LOC) - 0(Alert) 1b. Level of Consciousness (LOC) (Month \T\ Age) - 0(Both) 1c. LOC Commands (Open \T\ Closes Eyes/Enforcement Manager) - 0(Both) 2. Best Gaze (Lateral Gaze Paresis) - 0(Normal) 3. Visual Field Loss - 0(No visual loss) 4. Facial Palsy - 0(Normal) 5a. Left Arm: Motor (10-second hold) - 0(No drift) 5b. Right Arm: Motor (10-second hold) - 0(No drift) 6a. Left Leg: Motor (5-second hold - always test supine) - 0(No drift) 6b. Right Leg: Motor (5-second hold - always test supine) - 0(No drift) 7. Limb Ataxia (finger/nose \T\ heel/gaspar - test with eyes open) - 0(Absent) 8. Sensory Loss (pinprick arms/legs/face) - 0(Normal) 9. Best Language: Aphasia (description/naming/reading) - 0(No aphasia) Initials: sp4 Signatures: Dispatcher [employer] Pamela Lundberg RN RN iw Baxter, Heather RN Lex Muñoz RN RN rv Ayala, Heidy, RN RN ha1 Efra Adrian MD MD sp4
--- NOTE | 2022-12-03 04:57 | P.HP ---
Certification for Inpatient Patient admitted to: Observation With expected LOS: <2 Midnights Patient will require the following post-hospital care: None Practitioner: I am a practitioner with admitting privileges, knowledge of patient current condition, hospital course, and medical plan of care. Services: Services provided to patient in accordance with Admission requirements found in Title 42 Section 412.3 of the Code of Federal Regulations Patient History Date of Service: 12/03/22 Reason for admission: Near syncope History of Present Illness: 52-year-old male with history of GERD, hypertension, previous small bowel obstructions presents to the emergency department with chief complaint of near syncope, weakness/dizziness. He reports having a few beers last night the mid conversation with a friend when he nearly lost consciousness collapsing to the ground. He does remember the events denies any chest pain, palpitations or other symptoms leading up to the event. He was evaluated in the emergency department his labs were significant for mild hyponatremia, hypokalemia EtOH level 75. Still symptomatic at this time CT head negative for acute findings chest x-ray unremarkable. ED read wishes to admit under observation for hyponatremia, hyperkalemia, weakness, near syncope. Initial high-sensitivity troponin also negative. Allergies No Known Drug Allergies Allergy (Verified 01/24/15 21:56) Unknown Home Medications: Amoxicillin 1 tab PO TID 01/25/15 Cheratussin 10 ml PO BEDTIME 01/25/15 - Past Medical/Surgical History Diabetic: No -: SMALL BOWEL OBSTRUCTION -: HTN -: GERD -: RLQ ABD PAIN -: Appendectomy -: ABDOMINAL SURGERY Psychosocial/ Personal History: Lives with family - Family History Family History: Reviewed- Non-Contributory - Social History Smoking Status: Never smoker Alcohol use: Yes CD- Drugs: No Caffeine use: No Place of Residence: Home Review of Systems 10-point ROS is otherwise unremarkable General: Weakness Neurological: Other (Headache) Physical Examination - Physical Exam General: Alert, In no apparent distress, Oriented x3 HEENT: Atraumatic, PERRLA, Mucous membr. moist/pink, EOMI, Sclerae nonicteric Neck: Supple, 2+ carotid pulse no bruit, No LAD, Without JVD or thyroid abnormality Respiratory: Clear to auscultation bilaterally, Normal air movement Cardiovascular: Regular rate/rhythm, Normal S1 S2 Capillary refill: <2 Seconds Gastrointestinal: Normal bowel sounds, No tenderness Musculoskeletal: No tenderness Integumentary: No rashes Neurological: Normal speech, Normal strength at 5/5 x4 extr, Normal tone, Normal affect - Studies Laboratory Data (last 24 hrs) 12/03/22 12/03/22 12/03/22 01:35 01:35 01:35 WBC 8.80 Hgb 13.0 L Hct 36.9 L Plt Count 221 PT 10.9 INR 0.99 Sodium 128 L Potassium 2.9 L BUN 8 Creatinine 0.63 L Glucose 115 H Magnesium 2.0 Total Bilirubin 0.6 AST 21 ALT 30 Alkaline Phosphatase 55 Assessment and Plan - Plan Assessment: Mild hyponatremia, hypokalemia Near syncope, weakness Hypertension GERD Plan: Mild hyponatremia, hypokalemia Additional labs/urine studies ordered. Continue IV fluids, potassium supplementation. Electrolyte protocols in place, recheck chemistry at 8 AM. Near syncope, weakness Continue as above, will also trend troponins. Orthostatic vital signs ordered. Hypertension GERD Continue home medications. DVT PPX: Lovenox Code status: Full Discharge Plan: Home Plan to discharge in: 24 Hours - Advance Directives Does patient have a Living Will: No Does patient have a Durable POA for Healthcare: No - Code Status/Comfort Care Code Status Assessed: Yes (Full code) Critical Care: No Time Spent Managing Pts Care (In Minutes): 55
[2022-12-03] MEDS ORDERED: ONDANSETRON 4 MG/2 ML VIAL IV PRN (05:18)
[2022-12-03] MEDS ORDERED: NA CHLORIDE 0.9% 1,000 ML IV SCH (05:18)
[2022-12-03] MEDS ORDERED: MORPHINE 2 MG/ML SYR IV PRN (05:18)
[2022-12-03 05:26] VITALS: O2SAT 100; BMI 25.0
[2022-12-03 08:15] LABS: Magnesium 2.1 mg/dL (1.6-2.4); Phosphorus 2.8 mg/dL (2.5-4.9); Thyroid Stimulating Hormone 0.926 uIU/mL (0.358-3.740)
[2022-12-03] MEDS ORDERED: ENOXAPARIN 40 MG/0.4 ML SQ SCH (09:00)
[2022-12-03] MEDS ORDERED: ENOXAPARIN 40 MG/0.4 ML SQ ONE (09:42)
[2022-12-03] MEDS ORDERED: AMLODIPINE 5 MG TAB PO ONE (11:14)
[2022-12-03] MEDS ORDERED: AMLODIPINE 5 MG TAB ONE (11:30)
--- NOTE | 2022-12-03 11:34 | P.DS ---
Admission Date: 12/03/22 Discharge Date: 12/03/22 Disposition: ROUTINE DISCHARGE Discharge Condition: GOOD Reason for Admission: Near syncope Brief History of Present Illness: Patient is 52 years of age he was admitted here for observation started complaining of feeling dizzy lack of balance was sweating a lot apparently he was cooking Hospital Course: Patient was admitted here for observation no evidence of acute coronary event his EKG did not show any ischemic changes troponins 2 were negative with a history of hypertension no prior history of coronary artery disease before no diabetes head CT was negative chest x-ray normal patient's alcohol level was elevated initially was mildly hyponatremic hypokalemic and that was subsequently corrected at discharge Time of discharge he was alert oriented responsive cooperative vital signs all stable chest clear there was no neurological deficit cranial nerves were all normal may be all from alcohol intake and from cooking in a closed environment advised him that if he further has any evidence of diaphoresis or any chest discomfort to have a cardiac evaluation done blood pressure was little elevated on admission he did not take his home medications which he takes at night to resume Vital Signs/Physical Exam: Temp Pulse Resp BP Pulse Ox 98.1 F 64 17 130/85 99 12/03/22 08:00 12/03/22 08:00 12/03/22 08:00 12/03/22 08:00 12/03/22 08:00 Laboratory Data at Discharge: WBC 8.80 thou/uL (4.3-10.9) 12/03/22 01:35 Hgb 13.0 g/dL (13.6-17.9) L 12/03/22 01:35 Hct 36.9 % (39.6-49.0) L 12/03/22 01:35 Plt Count 221 thou/uL (152-406) 12/03/22 01:35 PT 10.9 SECONDS (9.5-12.5) 12/03/22 01:35 INR 0.99 12/03/22 01:35 Sodium 138 mEq/L (136-145) D 12/03/22 07:43 Potassium 4.0 mEq/L (3.5-5.1) D 12/03/22 07:43 BUN 5 mg/dL (7-18) L 12/03/22 07:43 Creatinine 0.75 mg/dL (0.70-1.30) 12/03/22 07:43 Glucose 160 mg/dL (74-106) H 12/03/22 07:43 Phosphorus 2.8 mg/dL (2.5-4.9) 12/03/22 07:43 Magnesium 2.1 mg/dL (1.6-2.4) 12/03/22 07:43 Total Bilirubin 0.6 mg/dL (0.2-1.0) 12/03/22 01:35 AST 21 U/L (15-37) 12/03/22 01:35 ALT 30 U/L (16-61) 12/03/22 01:35 Alkaline Phosphatase 55 U/L (45-117) 12/03/22 01:35 Home Medications: Amoxicillin 1 tab PO TID 01/25/15 Cheratussin 10 ml PO BEDTIME 01/25/15
[2022-12-03 12:13] VITALS: BP 160/102; TEMP 98
--- NOTE | 2022-12-03 21:58 | RAD REPORT ---
EXAM DESCRIPTION: RAD - Chest Single View - 12/03/2022 1:44 am CLINICAL HISTORY: 52 years Male, near syncope COMPARISON: None. FINDINGS: Single portable AP semiupright view of the chest. Prominence of the cardiac silhouette pro bably exacerbated due to AP technique. No consolidation. No pleural effusion or pneumothorax. No pulm onary vascular congestion. No acute osseous abnormality. IMPRESSION: No acute radiographic abnormality. Electronically signed by: Maureen Duvall MD 12/03/2022 2:00 AM CDT Due to temporary technical issues with the PACS/Fluency reporting system, reports are being signed by the in house radiologists without review as a courtesy to insure prompt reporting. The interpreting radiologist is fully responsible for the content of the report.
--- NOTE | 2022-12-03 22:01 | RAD REPORT ---
EXAM DESCRIPTION: CT - Head Brain Wo Cont - 12/03/2022 6:51 am CLINICAL HISTORY: 52 years, Male, near syncope COMPARISON: None. FINDINGS: Multiple transaxial tomograms of the brain were obtained from the base of the skull to the vertex without contrast. 2-D multiplanar reformats and the coronal and sagittal plane were performed and reviewed. This exam was performed according to our departmental dose-optimization protocol, which includes auto mated exposure control, adjustment of the mA and/or kV according to patient size and/or use of iterat boyd reconstruction technique. Brain parenchyma as well as the hairston and white matter differentiation demonstrate to be unremarkable. There is no midline shift and/or mass effect. There is no evidence for acute hemorrhage. There are n o focal areas of hypodensities. Lateral ventricles and cisterns displace normal appearance. No intr a or extra axial fluid collections were seen. The calvarium is intact with no evidence for fracture. The visualized portions of the paranasal sinuses and orbits demonstrate to be clear. IMPRESSION: No acute intracranial hemorrhage identified. Unremarkable CT scan of the head without contrast. Electronically signed by: Jesús Ash MD 12/03/2022 2:50 AM CDT Due to temporary technical issues with the PACS/Fluency reporting system, reports are being signed by the in house radiologists without review as a courtesy to insure prompt reporting. The interpreting radiologist is fully responsible for the content of the report.
--- NOTE | 2022-12-05 17:08 | EKG ---
Test Date: 2022-12-03 Test Time: 01:27:20 Table Setter: RV MEASUREMENT RESULTS: Intervals: Rate: 82 VA: 162 QRSD: 82 QT: 386 QTc: 450 Adah: P: 28 VA: 162 QRS: 10 T: -4 INTERPRETIVE STATEMENTS: Normal sinus rhythm Nonspecific T wave abnormality Abnormal ECG Compared to ECG 01/24/2015 18:16:55 T-wave abnormality now present Sinus arrhythmia no longer present Electronically Signed On 12-05-22 17:05:01 CDT by Luan Berry
== END 2022-12-03 12:00 | disposition home or self-care (01) ==
LOC: ER 01:15 → ERHOLD 04:24
PROVIDERS: ADMIT Internal Medicine Sleep Medicine; ATTEND Internal Medicine Sleep Medicine
DX: E87.1 Hypo-osmolality and hyponatremia (principal); E87.5 Hyperkalemia; R55 Syncope and collapse; K21.9 Gastro-esophageal reflux disease without esophagitis; R53.1 Weakness; R42 Dizziness and giddiness
CPT/HCPCS: 96365; 93005; 85025; 80048 ×2; 36415; 83735 ×2; 84100; 84132; 85610; 84300; 80076; 84443; 82570; 84484 ×2; 84439; 83880; 83930; 83935; 70450; 71045; 96375; 99285; 96366; 82077; J3480; J1650; J2405; J7050; J7040; J7030; G0378 ×2

== ENCOUNTER 2023-05-20 14:05 | Emergency (ER) | payer BC ==
[2023-05-20] MEDS ORDERED: NA CHLORIDE 0.9% 1,000 ML ONE ×2 (15:01→16:55)
[2023-05-20] MEDS ORDERED: ONDANSETRON 4 MG/2 ML VIAL ONE (15:01)
[2023-05-20] MEDS ORDERED: MORPHINE 4 MG/ML SYR ONE (15:01)
[2023-05-20 15:08] LABS: Absolute Eosinophils 0.1 K/uL (0-0.5); Absolute Lymphocytes (CBC) 0.7 K/uL (0.7-4.9); Absolute Monocytes 0.6 K/uL (0.1-1.3); Absolute Neutrophil 8.6 K/uL (1.8-8.0); Basophils % 0.4 % (0-1.3); Eosinophils % 1.1 % (0-4.4); Hematocrit 46.3 % (39.6-49.0); Hemoglobin 15.9 g/dL (13.6-17.9); Lymphocytes % 7.5 % (15.3-44.8); MCH 31.6 pg (27.0-35.0); MCHC 34.2 g/dL (32.0-36.0); MCV 92.4 fL (80-100); MPV 8.3 fL (7.6-11.3); Monocytes % 5.6 % (3.3-12.3); Neutrophils % 85.4 % (41.7-73.7); Platelets 291 thou/uL (152-406); RBC Red Blood Cell Count 5.01 M/uL (4.33-5.43); Red Cell Distribution Width 13.7 % (12.1-15.2)
[2023-05-20 15:27] LABS: Albumin 4.2 g/dL (3.4-5.0); Albumin/Globulin Ratio 1.1 (1.1-1.8); Anion Gap 10.9 mEq/L (5.0-15.0); Bilirubin Total 0.6 mg/dL (0.2-1.0); Globulin 3.8 g/dL (2.3-3.5); Potassium 3.9 mEq/L (3.5-5.1)
--- NOTE | 2023-05-20 16:41 | RAD REPORT ---
EXAM DESCRIPTION: CT - Abdomen Pelvis W Contrast - 05/20/2023 4:16 pm CLINICAL HISTORY: Abdominal pain COMPARISON: 2022 TECHNIQUE: Computed axial tomography of the abdomen pelvis was obtained. 100 cc Isovue-300 was admin istered intravenously. Oral contrast was not requested which limits evaluation of bowel and appendix All CT scans are performed using dose optimization technique as appropriate and may include automated exposure control or mA/KV adjustment according to patient size. FINDINGS: Fatty liver The spleen, pancreas, adrenals and left kidney are unremarkable. Small right renal cyst Moderate dilatation of small bowel within right abdomen and right pelvis. : Normal caliber No evidence of diverticulitis. No free air. IMPRESSION: Small bowel obstruction.
--- NOTE | 2023-05-20 17:16 | ER ---
Nurse's Notes [facility] Name: Kayy Carvajal Age: 53 yrs Sex: Male : 1970 Arrival Date: 05/20/2023 Time: 14:05 Bed 14 Private MD: Diagnosis: small bowel obstruction Presentation: 05/19 14:17 Chief complaint: Patient states: abdominal pain that started this morning. pt states he as6 has a history of SBO and this feels similar. Coronavirus screen: At this time, the client does not indicate any symptoms associated with coronavirus-19. Ebola Screen: No symptoms or risks identified at this time. Initial Sepsis Screen: Does the patient meet any 2 criteria? No. Patient's initial sepsis screen is negative. Does the patient have a suspected source of infection? No. Patient's initial sepsis screen is negative. Risk Assessment: Do you want to hurt yourself or someone else? Patient reports no desire to harm self or others. Onset of symptoms was May 20, 2023. 14:17 Acuity: HOLLEY 3 as6 14:17 Method Of Arrival: Ambulatory as6 Triage Assessment: 14:19 General: Appears uncomfortable, Behavior is calm, cooperative. Pain: Complains of pain as6 in abdomen. GI: Reports lower abdominal pain, upper abdominal pain, nausea. Historical: - Allergies: 14:18 No Known Allergies; as6 - PMHx: 14:18 bowel obstruction; GERD; Hypertension; MICHELE; as6 - PSHx: 14:18 Appendectomy; as6 - Immunization history:: Adult Immunizations up to date. - Social history:: Smoking status: Patient denies any tobacco usage or history of. Screenin:12 [facility] ED Fall Risk Assessment (Adult) History of falling in the last 3 months, kc6 including since admission No falls in past 3 months (0 pts) Confusion or Disorientation No (0 pts) Intoxicated or Sedated No (0 pts) Impaired Gait No (0 pts) Mobility Assist Device Used No (0 pt) Altered Elimination No (0 pt) Score/Fall Risk Level 0 - 2 = Low Risk. Abuse screen: Denies threats or abuse. Denies injuries from another. Nutritional screening: No deficits noted. Tuberculosis screening: No symptoms or risk factors identified. Assessment: 15:12 General: Appears in no apparent distress. comfortable, well groomed, well developed, kc6 Behavior is calm, cooperative, appropriate for age. Pain: Complains of pain in abdomen. Neuro: Level of Consciousness is awake, alert, obeys commands, Oriented to person, place, time, situation, Appropriate for age. Cardiovascular: Capillary refill < 3 seconds. Respiratory: Airway is patent Trachea midline Respiratory effort is even, unlabored, Respiratory pattern is regular, symmetrical. GI: Abdomen is flat, non-distended, Bowel sounds present X 4 quads. Reports constipation, Patient currently denies nausea, vomiting. : No signs and/or symptoms were reported regarding the genitourinary system. EENT: No signs and/or symptoms were reported regarding the EENT system. Derm: No signs and/or symptoms reported regarding the dermatologic system. Skin is intact, is healthy with good turgor, Skin is pink, warm \T\ dry. Musculoskeletal: No signs and/or symptoms reported regarding the musculoskeletal system. Circulation, motion, and sensation intact. Capillary refill < 3 seconds, Range of motion: intact in all extremities. 16:12 Reassessment: Patient appears in no apparent distress at this time. No changes from kc6 previously documented assessment. Patient and/or family updated on plan of care and expected duration. Pain level reassessed. Patient is alert, oriented x 3, equal unlabored respirations, skin warm/dry/pink. 17:07 Reassessment: Patient appears in no apparent distress at this time. No changes from kc6 previously documented assessment. Patient and/or family updated on plan of care and expected duration. Pain level reassessed. Patient is alert, oriented x 3, equal unlabored respirations, skin warm/dry/pink. 18:52 Reassessment: Patient appears in no apparent distress at this time. No changes from kc6 previously documented assessment. Patient and/or family updated on plan of care and expected duration. Pain level reassessed. Patient is alert, oriented x 3, equal unlabored respirations, skin warm/dry/pink. Vital Signs: 14:17 BP 138 / 103; Pulse 90; Resp 16 S; Temp 97.9(O); Pulse Ox 99% on R/A; Weight 72.57 kg as6 (R); Height 5 ft. 7 in. (R); Pain 9/10; 15:13 BP 164 / 101; Pulse 76; Resp 16 S; Pulse Ox 97% on R/A; kc6 17:07 BP 140 / 91; Pulse 97; Resp 16 S; Pulse Ox 97% on R/A; Pain 6/10; kc6 17:30 BP 160 / 101; kc6 17:47 BP 176 / 117; kc6 18:00 BP 179 / 112; kc6 18:02 BP 166 / 112; kc6 18:51 BP 168 / 101; Pulse 95; Resp 16 S; Pulse Ox 100% on R/A; Pain 7/10; kc6 14:17 Body Mass Index 25.06 (72.57 kg, 170.18 cm) as6 14:17 Pain Scale: Adult as6 17:07 Pain Scale: Adult kc6 18:51 Pain Scale: Adult kc6 ED Course: 14:08 Patient arrived in ED. im 14:17 Bonnie Chopra PA-C is PHCP. sb4 14:17 Bharath Cortes DO is Attending Physician. sb4 14:17 Arm band placed on. as6 14:18 Triage completed. as6 14:59 Shreya Glez, RN is Primary Nurse. kc6 15:12 Patient has correct armband on for positive identification. Bed in low position. Call kc6 light in reach. Side rails up X 1. Client placed on continuous cardiac and pulse oximetry monitoring. NIBP monitoring applied. 15:12 Inserted saline lock: 24 gauge in right antecubital area, using aseptic technique. kc6 ,using aseptic technique. by Josefina Ochoa Blood collected. Patient maintains SpO2 saturation greater than 95% on room air. 16:18 CT Abd/Pelvis - IV Contrast Only In Process Unspecified. EDMS 17:17 initiated a transfer with the [facility] at the request of the patient. eb 17:46 connected the general surgeon electronic prepress technician for [facility] with Bonnie SPENCER for patient transfer eb consultation. 17:59 administrative approval given by Anika Rai/ patient has bee accepted to [facility] eb Main room 831/ Dr. Cecilia Riley has accepted the patient in transfer/ report to be called to [phone]. 18:25 [facility] called for transport, approval given ETA [id number]. ty 18:52 No provider procedures requiring assistance completed. Patient transferred, IV remains kc6 in place. Administered Medications: 15:08 Drug: NS 0.9% IV 1000 ml IV at 1 bolus Per protocol; 1000 mL bolus Route: IV; Rate: 1 kc6 bolus; Site: right antecubital; 17:06 Follow up: Response: No adverse reaction; IV Status: Completed infusion; IV Intake: kc6 1000ml 15:08 Drug: Ondansetron IVP 4 mg IVP once; over 2 minutes Route: IVP; Site: right antecubital;kc6 17:06 Follow up: Response: No adverse reaction kc6 15:08 Not Given (Patient Refused): morphineor iv 4 mg IVP once over 4 mins kc6 17:06 Drug: NS 0.9% IV 1000 ml IV at 1 bolus Per protocol; 1000 mL bolus Route: IV; Rate: 1 kc6 bolus; Site: right antecubital; 18:51 Follow up: Response: No adverse reaction; IV Status: Completed infusion; IV Intake: kc6 1000ml 18:12 Drug: Labetalol IV 5 mg IV at calculated rate once Route: IV; Rate: calculated rate; kc6 Site: right antecubital; 18:47 Follow up: Response: No adverse reaction; Blood pressure is unchanged; IV Status: kc6 Completed infusion; IV Intake: 1ml 18:51 Drug: Labetalol IV 10 mg IV at calculated rate once Route: IV; Rate: calculated rate; kc6 Site: right antecubital; Medication: 18:52 VIS not applicable for this client. kc6 Intake: 17:06 IV: 1000ml; Total: 1000ml. kc6 18:47 IV: 1ml; Total: 1001ml. kc6 18:51 IV: 1000ml; Total: 2001ml. kc6 Outcome: 17:15 ER care complete, transfer ordered by . sb4 18:52 Transferred by ground EMS to [facility], Transfer form completed. Note: kc6 report called to TERRY Herbert 18:52 Condition: good 18:53 Patient left the ED. kc6 Signatures: Dispatcher [employer] EDMS Olive Erickson Ashby, RN RN as6 Shreya Glez RN RN kc6 Bonnie Chopra PA-C PATravis [email or web address] Miladis Downs Tylor ty Corrections: (The following items were deleted from the chart) 17:10 17:07 Pulse 97bpm; Resp 16bpm; Spontaneous; Pulse Ox 97% RA; Pain 07/30, Adult; kc6 kc6 18:11 17:46 connected the hospitalist electronic prepress technician for [facility] with Bonnie SPENCER for patient eb transfer consultation, eb
--- NOTE | 2023-05-20 17:16 | EDPHYS ---
Physician Documentation [facility] Name: Kayy Carvajal Age: 53 yrs Sex: Male : 1970 Arrival Date: 05/20/2023 Time: 14:05 Bed 14 Private MD: ED Physician Bharath Cortes HPI: 05/19 14:26 This 53 yrs old Male presents to ER via Ambulatory with complaints of Abdominal sb4 Pain. 14:26 The patient presents with abdominal pain that is diffuse. Onset: The symptoms/episode sb4 began/occurred this morning. The symptoms do not radiate. Associated signs and symptoms: none. Modifying factors: The symptoms are alleviated by nothing, the symptoms are aggravated by nothing. The patient has experienced similar episodes in the past, multiple times, and the symptoms today are exactly the same, to when the patient was apparently diagnosed with SBO. The patient has not recently seen a physician. Historical: - Allergies: 14:18 No Known Allergies; as6 - PMHx: 14:18 bowel obstruction; GERD; Hypertension; MICHELE; as6 - PSHx: 14:18 Appendectomy; as6 - Immunization history:: Adult Immunizations up to date. - Social history:: Smoking status: Patient denies any tobacco usage or history of. ROS: 14:26 Constitutional: Negative for fever, chills, and weight loss, sb4 14:26 Abdomen/GI: Positive for abdominal pain, 14:26 All other systems are negative, Exam: 14:26 Constitutional: This is a well developed, well nourished patient who is awake, alert, sb4 and in no acute distress. Head/Face: Normocephalic, atraumatic. Eyes: Extra-ocular motions intact. Periorbital areas with no swelling, redness, or edema. ENT: Mucous membranes moist. Cardiovascular: Regular rate and rhythm with a normal S1 and S2. Respiratory: Lungs have equal breath sounds bilaterally, clear to auscultation and percussion. No rales, rhonchi or wheezes noted. No increased work of breathing, no retractions or nasal flaring. Skin: Warm, dry with normal turgor. Normal color with no rashes, no lesions, and no evidence of cellulitis. MS/ Extremity: Pulses equal, no cyanosis. Neurovascular intact. Full, normal range of motion. 14:26 Abdomen/GI: Inspection: scar(s), are noted in the umbilical area and suprapubic area, Bowel sounds: diminished, in the right lower quadrant and left lower quadrant, Palpation: abdomen is soft and non-tender, Vital Signs: 14:17 BP 138 / 103; Pulse 90; Resp 16 S; Temp 97.9(O); Pulse Ox 99% on R/A; Weight 72.57 kg as6 (R); Height 5 ft. 7 in. (R); Pain 9/10; 15:13 BP 164 / 101; Pulse 76; Resp 16 S; Pulse Ox 97% on R/A; kc6 17:07 BP 140 / 91; Pulse 97; Resp 16 S; Pulse Ox 97% on R/A; Pain 6/10; kc6 17:30 BP 160 / 101; kc6 17:47 BP 176 / 117; kc6 18:00 BP 179 / 112; kc6 18:02 BP 166 / 112; kc6 18:51 BP 168 / 101; Pulse 95; Resp 16 S; Pulse Ox 100% on R/A; Pain 7/10; kc6 14:17 Body Mass Index 25.06 (72.57 kg, 170.18 cm) as6 14:17 Pain Scale: Adult as6 17:07 Pain Scale: Adult kc6 18:51 Pain Scale: Adult kc6 MDM: 14:17 Patient medically screened. sb4 14:26 Differential diagnosis: bowel obstruction, diverticulitis, non-specific abd pain. sb4 17:16 Data reviewed: vital signs, nurses notes, lab test result(s), radiologic studies. sb4 Counseling: I had a detailed discussion with the patient and/or guardian regarding the historical points, exam findings, and any diagnostic results supporting the discharge/admit diagnosis, lab results, radiology results, the need to transfer to another facility, capacity. 05/19 14:24 Order name: CBC with Diff; Complete Time: 17:46 sb4 05/19 14:24 Order name: CMP; Complete Time: 15:44 sb4 05/19 14:24 Order name: Lipase; Complete Time: 15:44 sb4 05/19 17:46 Order name: CBC Smear Scan; Complete Time: 17:46 EDMS 05/19 14:24 Order name: CT Abd/Pelvis - IV Contrast Only; Complete Time: 16:47 sb4 05/19 14:24 Order name: IV Saline Lock; Complete Time: 14:59 sb4 05/19 14:24 Order name: Labs collected and sent; Complete Time: 14:59 sb4 Administered Medications: 15:08 Drug: NS 0.9% IV 1000 ml IV at 1 bolus Per protocol; 1000 mL bolus Route: IV; Rate: 1 kc6 bolus; Site: right antecubital; 17:06 Follow up: Response: No adverse reaction; IV Status: Completed infusion; IV Intake: kc6 1000ml 15:08 Drug: Ondansetron IVP 4 mg IVP once; over 2 minutes Route: IVP; Site: right antecubital;6 17:06 Follow up: Response: No adverse reaction 6 15:08 Not Given (Patient Refused): morphineor iv 4 mg IVP once over 4 mins 6 17:06 Drug: NS 0.9% IV 1000 ml IV at 1 bolus Per protocol; 1000 mL bolus Route: IV; Rate: 1 kc6 bolus; Site: right antecubital; 18:51 Follow up: Response: No adverse reaction; IV Status: Completed infusion; IV Intake: kc6 1000ml 18:12 Drug: Labetalol IV 5 mg IV at calculated rate once Route: IV; Rate: calculated rate; 6 Site: right antecubital; 18:47 Follow up: Response: No adverse reaction; Blood pressure is unchanged; IV Status: kc6 Completed infusion; IV Intake: 1ml 18:51 Drug: Labetalol IV 10 mg IV at calculated rate once Route: IV; Rate: calculated rate; [facility] Site: right antecubital; Disposition: 14:49 I was immediately available on-site in the Emergency Department for consultation in the ms3 care of the patient. Disposition Summary: 05/20/23 17:15 Transfer Ordered Notes: Transfer Location: [facility] sb4 Reason: Higher level of care sb4 Condition: Fair sb4 Problem: new sb4 Symptoms: are unchanged sb4 Accepting Physician: Dr. Riley(05/20/23 18:53) kc6 Diagnosis - small bowel obstruction sb4 Forms: - Medication Reconciliation Form sb4 - SBAR form sb4 Signatures: Dispatcher [employer] EDBharath Burton DO DO ms3 Ivan White RN RN as6 Shreya Glez RN RN kc6 Bonnie Chopra PA-C PATravis sb4 Corrections: (The following items were deleted from the chart) 18: 17:15 jeanne [email or web address] sb4 18:53 18:09 Dr. Riley sb4 kc6
[2023-05-20 17:45] LABS: Blood Morphology Comment NOT SEEN (NOT SEEN); Platelet Estimate ADEQ; White Blood Cell Scan OK (OK)
[2023-05-20] MEDS ORDERED: LABETALOL 20 MG/4ML SYRINGE IV ONE ×2 (18:02→18:47)
[2023-05-20 20:46] VITALS: TEMP 97.9
[2023-05-20 21:12] VITALS: BP 168/101; O2SAT 100
== END 2023-05-20 18:53 | disposition short-term general hospital (02) ==
LOC: ER 14:05
DX: K56.609 Unspecified intestinal obstruction, unspecified as to partial versus complete obstruction (principal)
CPT/HCPCS: 96365; 96361; 85025; 36415; 83690; 80053; 74177; 96375; 99285; Q9967; J2405; J7030 ×2

== ENCOUNTER 2024-01-29 12:41 | Inpatient (IN) | payer BC, MEDICARE ==
[2024-01-29 14:27] LABS: Absolute Eosinophils 0.1 K/uL (0-0.5); Absolute Lymphocytes (CBC) 0.7 K/uL (0.7-4.9); Absolute Monocytes 0.4 K/uL (0.1-1.3); Basophils % 0.3 % (0-1.3); Eosinophils % 0.7 % (0-4.4); Hematocrit 43.1 % (39.6-49.0); Hemoglobin 13.8 g/dL (13.6-17.9); Lymphocytes % 8.5 % (15.3-44.8); MCV 87.3 fL (80-100); MPV 8.9 fL (7.6-11.3); Neutrophils % 85.5 % (41.7-73.7); Platelets 304 thou/uL (152-406); RBC Red Blood Cell Count 4.94 M/uL (4.33-5.43)
[2024-01-29 14:43] LABS: Albumin/Globulin Ratio 1.1 (1.1-1.8); Anion Gap 9.4 mEq/L (5.0-15.0); Bilirubin Total 0.7 mg/dL (0.2-1.0); Globulin 3.6 g/dL (2.3-3.5); Potassium 3.4 mEq/L (3.5-5.1); Protein, Total 7.6 g/dL (6.4-8.2)
[2024-01-29 14:43] LABS: Specific Gravity 1.023 (1.005-1.030); Sqamous Epithelial <5 /HPF (None Seen); Urine Bacteria <20 /HPF (<20); Urine Bilirubin NEGATIVE (Negative); Urine Blood Negative (Negative); Urine Clarity Turbid (Clear); Urine Color Yellow (Yellow); Urine Crystals Unidentified Few /HPF (None Seen); Urine Culture Reflex Order NOT NEEDED; Urine Glucose NEGATIVE (Negative); Urine Ketones 2+ (Negative); Urine Microscopic Reflex YN ORDER UMIC; Urine Mucus 4+ /HPF (None Seen); Urine Nitrite NEGATIVE (Negative); Urine Protein 1+ (Negative); Urine RBC <5 /HPF (None Seen); Urine Urobilinogen Normal (Normal); Urine WBC <5 /HPF (<5); Urine pH 5.5 (5.0-7.0)
[2024-01-29] MEDS ORDERED: NA CHLORIDE 0.9% 1,000 ML ONE ×2 (14:50→23:50)
[2024-01-29] MEDS ORDERED: ONDANSETRON 4 MG/2 ML VIAL ONE (16:18)
[2024-01-29] MEDS ORDERED: FAMOTIDINE 20 MG/2 ML VIAL IV ONE (16:19)
[2024-01-29] MEDS ORDERED: MORPHINE 4 MG/ML SYR ONE (16:19)
--- NOTE | 2024-01-29 16:45 | RAD REPORT ---
EXAMINATION: CT Abdomen Pelvis W Contrast CLINICAL INDICATION: Male, 53 years old. ABD PAIN TECHNIQUE: CT abdomen and pelvis was performed, after the administration of IV contrast, as per [facility] protocol. Axial, sagittal and coronal reconstructions were obtained. One or more of the following dose reduction techniques were used: Automated exposure control, adjustment of the mA and k V according to patient size, and iterative reconstruction. Unless otherwise specified, incidental findings do not require dedicated imaging follow-up. COMPARISON: 05/10/2023 FINDINGS: LOWER CHEST: The visualized lung bases are clear. LIVER: Normal in size and contour. No focal lesion. BILIARY SYSTEM: No suspicious abnormalities. SPLEEN: Normal size. No focal lesion. PANCREAS: No mass, ductal dilation, or keira-pancreatic fluid. ADRENALS: Small adrenal nodule measuring 1 cm, stable. KIDNEYS: Normal size and contour. No hydronephrosis. Small right superior pole cortical cyst, grossly stable URINARY BLADDER: Suboptimally distended limiting evaluation.. GASTROINTESTINAL TRACT: Marked small bowel dilation with sacralization, with a transition point again seen in the right flank, closely related to anastomotic small bowel suture lines, see coronal images 64-66, series 602. The location of the transition point is fairly similar to the finding on th e prior. No evidence of free air, significant intra-abdominal free fluid, or abnormal fluid collections. APPENDIX: Normal appendix. LYMPH NODES: No lymphadenopathy. MUSCULOSKELETAL: No acute or suspicious osseous abnormality. ADDITIONAL FINDINGS: None. IMPRESSION: Findings of small bowel obstruction with transition point in the right flank, again closely related t o an anastomotic small bowel suture line. The location of the transition point is fairly similar to the finding on the most recent abdominal CT reviewed for comparison. Other benign incidental findings as above. THIS REPORT CONTAINS FINDINGS THAT MAY BE CRITICAL TO PATIENT CARE. The findings were verbally commun icated via telephone to Linda Cordova MD on 01/29/2024 4:39 PM.
--- NOTE | 2024-01-29 16:56 | EDPHYS ---
Physician Documentation [facility] Name: Kayy Carvajal Age: 53 yrs Sex: Male : 1970 Arrival Date: 01/29/2024 Time: 12:41 Bed 16 Private MD: ED Physician Gael Ureña HPI: 01/28 13:00 This 53 yrs old Male presents to ER via Ambulatory with complaints of Abdominal cp Pain. 13:00 The patient presents with abdominal pain that is diffuse. Onset: The symptoms/episode cp began/occurred this morning. The symptoms do not radiate. 13:00 Associated signs and symptoms: Pertinent positives: nausea and vomiting, Pertinent cp negatives: chest pain, constipation, diarrhea, fever, shortness of breath, testicular pain. The symptoms are described as constant. 13:00 Severity of pain: in the emergency department the pain is unchanged despite home cp interventions. Historical: - Allergies: 16:54 No Known Allergies; kc6 - Home Meds: 13:46 amlodipine 5 mg tab 1 tab once daily [Active]; omeprazole 40 mg Oral cpDR 1 cap once hb daily [Active]; - PMHx: 13:46 bowel obstruction; GERD; MICHELE; Hypertension; hb - PSHx: 13:46 Appendectomy; hb - Immunization history:: Adult Immunizations up to date. - Infectious Disease History:: Denies. - Social history:: Smoking status: Patient denies any tobacco usage or history of. ROS: 13:05 Constitutional: Positive for poor PO intake, Negative for body aches, chills, fever, cp 13:05 Eyes: Negative for injury, pain, redness, and discharge, cp 13:05 ENT: Negative for drainage from ear(s), ear pain, sore throat, difficulty swallowing, difficulty handling secretions, 13:05 Cardiovascular: Negative for chest pain, palpitations, 13:05 Respiratory: Negative for cough, shortness of breath, wheezing, 13:05 Abdomen/GI: Positive for abdominal pain, nausea and vomiting, Negative for diarrhea, constipation, hematemesis, 13:05 : Negative for urinary symptoms, 13:05 Neuro: Negative for altered mental status, dizziness, headache, weakness, 13:05 All other systems are negative, Exam: 13:10 Constitutional: The patient appears in no acute distress, alert, awake, non-toxic, well cp developed, well nourished, uncomfortable, 13:10 Head/Face: Normocephalic, atraumatic. cp 13:10 Eyes: Periorbital structures: appear normal, Conjunctiva: normal, no exudate, no injection, Sclera: no appreciated abnormality, Lids and lashes: appear normal, 13:10 ENT: External ear(s): are unremarkable, Nose: is normal, Mouth: Lips: moist, Oral mucosa: pink and intact, moist, Posterior pharynx: Airway: no evidence of obstruction, patent, 13:10 Chest/axilla: Inspection: normal, 13:10 Cardiovascular: Rate: normal, Rhythm: regular, 13:10 Respiratory: the patient does not display signs of respiratory distress, Respirations: normal, no use of accessory muscles, no retractions, labored breathing, is not present, Breath sounds: are clear throughout, no decreased breath sounds, no stridor, no wheezing, 13:10 Abdomen/GI: Inspection: distension, that is mild, scar(s), mid line, Bowel sounds: hyperactive, in all quadrants, Palpation: soft, in all quadrants, moderate abdominal tenderness, in the abdomen diffusely, rebound tenderness, is not appreciated, involuntary guarding, is not appreciated, Vital Signs: 13:46 BP 176 / 106; Pulse 88; Resp 16; Temp 98.3; Pulse Ox 100% on R/A; Weight 74.84 kg; hb Height 5 ft. 7 in. ; Pain 8/10; 18:50 BP 160 / 104; Pulse 95; Resp 18 S; Pulse Ox 99% on R/A; kc6 19:39 BP 151 / 91; Pulse 87; Resp 20; Pulse Ox 100% on R/A; kj2 20:17 BP 153 / 91; Pulse 84; Resp 20; Pulse Ox 100% on R/A; kj2 21:15 BP 160 / 90; Pulse 72; Resp 18; Temp 98.1; Pulse Ox 97% ; kj2 13:46 Body Mass Index 25.84 (74.84 kg, 170.18 cm) hb 13:46 Pain Scale: Adult hb MDM: 13:48 Medical Screening Exam initiated cp 17:00 Data reviewed: vital signs, nurses notes, lab test result(s), radiologic studies, CT cp scan. 17:00 Counseling: I had a detailed discussion with the patient and/or guardian regarding the cp historical points, exam findings, and any diagnostic results supporting the discharge/admit diagnosis, lab results, radiology results, discussed results of today's testing with patient who is requesting transfer to [facility] for continued care due with his primary surgeon. 18:09 ED course: Consult with Dr. Carlin who is on-call for general surgery who will be cp happy to consult and assist in management of this patient. 01/28 12:47 Order name: CBC with Diff; Complete Time: 18:07 gb1 01/28 12:47 Order name: CMP; Complete Time: 14:53 gb1 01/28 12:47 Order name: Lipase; Complete Time: 14:53 gb1 01/28 12:47 Order name: Urinalysis w/ reflexes; Complete Time: 14:53 gb1 01/28 16:57 Order name: CBC Smear Scan; Complete Time: 18:07 EDMS 01/28 21:49 Order name: Urinalysis w/ reflexes EDMS 01/28 21:49 Order name: CBC with Automated Diff EDMS 01/28 21:49 Order name: CBC with Automated Diff; Complete Time: 12:05 EDMS 01/28 21:49 Order name: Comprehensive Metabolic Panel EDMS 01/28 21:49 Order name: Comprehensive Metabolic Panel; Complete Time: 12:05 EDMS 01/28 12:47 Order name: CT Abd/Pelvis - IV Contrast Only; Complete Time: 16:47 gb1 01/28 21:50 Order name: Abdomen 1 View (KUB) EDMS 01/28 21:50 Order name: Abdomen 1 View (KUB); Complete Time: 12:05 EDMS 01/28 12:47 Order name: IV Saline Lock; Complete Time: 14:17 gb1 01/28 12:47 Order name: Labs collected and sent; Complete Time: 14:17 gb1 Administered Medications: 15:03 Drug: NS 0.9% IV 1000 ml IV at 1 bolus Per protocol; to be given as a bolus over 60 ss minutes Route: IV; Rate: 1 bolus; Site: left forearm; 16:53 Follow up: Response: No adverse reaction; IV Status: Completed infusion; IV Intake: kc6 1000ml 16:26 Drug: Ondansetron IVP 4 mg IVP once; over 2 minutes Route: IVP; Site: left forearm; kc6 16:53 Follow up: Response: No adverse reaction kc6 16:26 Drug: Famotidine IVP 20 mg IVP once; dilute with 10 mL 0.9% NaCl; give over 2 minutes kc6 Route: IVP; Site: left forearm; 16:53 Follow up: Response: No adverse reaction kc6 16:26 Not Given (Patient Refused): morphineor iv 4 mg IVP once over 4 mins kc6 17:15 Drug: NS 0.9% IV 1000 ml IV at 1000 ml once; to be given as a bolus over 60 minutes kc6 Route: IV; Rate: 1000 ml; Site: left forearm; 20:19 Follow up: IV Status: Completed infusion; IV Intake: 1000ml kj2 20:19 Follow up: Response: No adverse reaction kj2 17:15 Drug: NS 0.9% IV 1000 ml IV at 125 ml/hr Per protocol; to be given as a bolus over 60 kc6 minutes Route: IV; Rate: 125 ml/hr; Site: left forearm; 18:50 Drug: metroNIDAZOLE IVPB 500 mg 100 ml IVPB once over 30 mins Volume: 100 ml; Route: kc6 IVPB; Infused Over: 30 mins; Site: left forearm; 19:20 Follow up: IV Status: Completed infusion; IV Intake: 100ml kj2 20:18 Follow up: Response: No adverse reaction kj2 20:16 Drug: Ciprofloxacin IVPB 400 mg 200 ml IVPB once over 60 mins Volume: 200 ml; Route: kj2 IVPB; Infused Over: 60 mins; Site: left forearm; 22:10 Follow up: IV Status: Completed infusion; IV Intake: 200ml kj2 22:11 Follow up: Response: No adverse reaction kj2 20:16 Drug: Promethazine IVP 25 mg IVP once Route: IVP; Site: left forearm; kj2 22:10 Follow up: Response: No adverse reaction kj2 22:10 Follow up: Response: No adverse reaction kj2 Disposition Summary: 01/29/24 19:01 Hospitalization Ordered Notes: Hospitalization Status: Inpatient Admission cp Provider: Buzz oLcke cp Condition: Stable(01/29/24 19:01) cp Problem: new(01/29/24 19:01) cp Symptoms: have improved(01/29/24 19:01) cp Bed/Room Type: Standard cp Location: Telemetry/MedSurg (Inpatient)(01/30/24 16:38) ss Room Assignment: 218(01/30/24 16:38) ss Diagnosis - Small Bowel Obstruction cp Forms: - Medication Reconciliation Form cp - SBAR form cp - Leadership Thank You Letter cp Addendum: 02/05/2024 07:07 Co-signature as Attending Physician, Gael Ureña MD I reviewed the patient's care r n provided by the Advanced Practice Provider and agree with the diagnosis and treatment plan. Signatures: Dispatcher [employer] EDMS Gael Ureña MD MD rn Blanchard, Shelby RN RN ss Jose A Alcantar PA PA cp Clari Sanders RN RN Josette Shipman RN RN lg3 Shreya Glez RN RN kc6 Linda Cordova MD MD gb1 Luana Rich Krystal, RN RN kj2 Corrections: (The following items were deleted from the chart) 01/28 18:35 16:55 doctor cp cp 18:35 16:55 Tenriism System cp cp 18:35 16:55 Higher level of care cp cp 18:35 16:55 Stable cp cp 18:35 16:55 new cp cp 18:35 16:55 have improved cp cp 18:35 16:55 Small Bowel Obstruction cp cp 21:58 19:01 cp vk 22:06 19:01 Telemetry/MedSurg (Inpatient) cp lg3 22:06 21:58 404 vk lg3 01/29 16:38 01/28 22:06 [facility] ER HOLD lg3 ss 01/29 16:38 01/28 22:06 ERHOLD- lg3 ss
--- NOTE | 2024-01-29 16:56 | ER ---
Nurse's Notes [facility] Name: Kayy Carvajal Age: 53 yrs Sex: Male : 1970 Arrival Date: 01/29/2024 Time: 12:41 Bed 16 Private MD: Diagnosis: Small Bowel Obstruction Presentation: 01/28 13:45 Chief complaint: Abdominal pain since 0300 today. Coronavirus screen: At this time, the hb client does not indicate any symptoms associated with coronavirus-19. Ebola Screen: No symptoms or risks identified at this time. Initial Sepsis Screen: Does the patient meet any 2 criteria? No. Patient's initial sepsis screen is negative. Does the patient have a suspected source of infection? No. Patient's initial sepsis screen is negative. Risk Assessment: Do you want to hurt yourself or someone else? Patient reports no desire to harm self or others. Onset of symptoms was January 29, 2024. 13:45 Method Of Arrival: Ambulatory 13:45 Acuity: HOLLEY 3 hb Historical: - Allergies: 16:54 No Known Allergies; kc6 - Home Meds: 13:46 amlodipine 5 mg tab 1 tab once daily [Active]; omeprazole 40 mg Oral cpDR 1 cap once hb daily [Active]; - PMHx: 13:46 bowel obstruction; GERD; MICHELE; Hypertension; hb - PSHx: 13:46 Appendectomy; hb - Immunization history:: Adult Immunizations up to date. - Infectious Disease History:: Denies. - Social history:: Smoking status: Patient denies any tobacco usage or history of. Screenin:54 [facility] ED Fall Risk Assessment (Adult) History of falling in the last 3 months, kc6 including since admission No falls in past 3 months (0 pts) Confusion or Disorientation No (0 pts) Intoxicated or Sedated No (0 pts) Impaired Gait No (0 pts) Mobility Assist Device Used No (0 pt) Altered Elimination No (0 pt) Score/Fall Risk Level 0 - 2 = Low Risk Oriented to surroundings, Maintained a safe environment. Abuse screen: Denies threats or abuse. Denies injuries from another. Nutritional screening: No deficits noted. Tuberculosis screening: No symptoms or risk factors identified. Assessment: 16:54 General: Appears in no apparent distress. comfortable, well groomed, well developed, kc6 Behavior is calm, cooperative, appropriate for age. Pain: Complains of pain in abdomen diffusely Pain currently is 8 out of 10 on a pain scale. at worst was 10 out of 10 on a pain scale. Neuro: Level of Consciousness is awake, alert, obeys commands, Oriented to person, place, time, situation, Appropriate for age. Cardiovascular: Capillary refill < 3 seconds. Respiratory: Airway is patent Trachea midline Respiratory effort is even, unlabored, Respiratory pattern is regular, symmetrical. GI: Abdomen is flat, non-distended, Bowel sounds hypoactive in right upper quadrant, left upper quadrant, right lower quadrant and left lower quadrant Abdomen is tender to palpation X 4 quads. Reports lower abdominal pain, upper abdominal pain, constipation, nausea, Patient currently denies diarrhea, vomiting. : No signs and/or symptoms were reported regarding the genitourinary system. EENT: No signs and/or symptoms were reported regarding the EENT system. Derm: No signs and/or symptoms reported regarding the dermatologic system. Skin is intact, is healthy with good turgor, Skin is pink, warm \T\ dry. Musculoskeletal: No signs and/or symptoms reported regarding the musculoskeletal system. Circulation, motion, and sensation intact. Capillary refill < 3 seconds, Range of motion: intact in all extremities. 17:54 Reassessment: Patient appears in no apparent distress at this time. No changes from kc6 previously documented assessment. Patient and/or family updated on plan of care and expected duration. Pain level reassessed. Patient is alert, oriented x 3, equal unlabored respirations, skin warm/dry/pink. 18:51 Reassessment: Patient appears in no apparent distress at this time. No changes from kc6 previously documented assessment. Patient and/or family updated on plan of care and expected duration. Pain level reassessed. Patient is alert, oriented x 3, equal unlabored respirations, skin warm/dry/pink. 19:00 Reassessment: Patient appears in no apparent distress at this time. Patient and/or kj2 family updated on plan of care and expected duration. Pain level reassessed. Patient is alert, oriented x 3, equal unlabored respirations, skin warm/dry/pink. 19:40 Reassessment: Patient appears in no apparent distress at this time. Patient and/or kj2 family updated on plan of care and expected duration. Pain level reassessed. Patient is alert, oriented x 3, equal unlabored respirations, skin warm/dry/pink. 20:17 Reassessment: Patient appears in no apparent distress at this time. Patient and/or kj2 family updated on plan of care and expected duration. Pain level reassessed. Patient is alert, oriented x 3, equal unlabored respirations, skin warm/dry/pink. Vital Signs: 13:46 BP 176 / 106; Pulse 88; Resp 16; Temp 98.3; Pulse Ox 100% on R/A; Weight 74.84 kg; hb Height 5 ft. 7 in. ; Pain 8/10; 18:50 BP 160 / 104; Pulse 95; Resp 18 S; Pulse Ox 99% on R/A; kc6 19:39 BP 151 / 91; Pulse 87; Resp 20; Pulse Ox 100% on R/A; kj2 20:17 BP 153 / 91; Pulse 84; Resp 20; Pulse Ox 100% on R/A; kj2 21:15 BP 160 / 90; Pulse 72; Resp 18; Temp 98.1; Pulse Ox 97% ; kj2 13:46 Body Mass Index 25.84 (74.84 kg, 170.18 cm) hb 13:46 Pain Scale: Adult hb ED Course: 12:43 Patient arrived in ED. mr 12:45 Jose A Alcantar PA is PHCP. cp 12:46 Linda Cordova MD is Attending Physician. gb1 12:47 Attending Physician role handed off by Linda Cordova MD cp 12:47 Gael Ureña MD is Attending Physician. cp 13:46 Triage completed. hb 13:47 Arm band placed on. hb 14:12 Radiology exam delayed due to lab results not completed at this time. (BUN/Creatinine) nj IV insertion attempt and/or patient not having appropriate IV at this time. 14:17 CBC with Diff Sent. bc6 14:17 CMP Sent. bc6 14:18 Lipase Sent. bc6 14:18 Initial lab(s) drawn, by me, sent to lab. Inserted saline lock: 20 gauge in left bc6 forearm, using aseptic technique. Blood collected. Flushed with 10 mL NS. 15:12 CT Abd/Pelvis - IV Contrast Only In Process Unspecified. EDMS 16:15 Shreya Glez, TERRY is Primary Nurse. kc6 16:54 Patient has correct armband on for positive identification. Bed in low position. Call kc6 light in reach. Side rails up X 1. Pulse ox on. NIBP on. Door closed. Noise minimized. Lights dimmed. Warm blanket given. Pillow given. 16:54 Patient maintains SpO2 saturation greater than 95% on room air. kc6 17:13 initiated transfer to [facility] as requested by pt. bd 18:[address] [facility] at this time due to no beds at this time, per Anika. bd 18:51 Report given to Sienna Kathleen RN. kc6 19:01 Buzz Locke MD is Hospitalizing Provider. cp 19:05 Report given to TERRY BAIN. cm10 12 15:40 No provider procedures requiring assistance completed. Patient admitted, IV remains in ap3 place. 15:41 Provided Education on: need instructions. ap3 Administered Medications: 12 15:03 Drug: NS 0.9% IV 1000 ml IV at 1 bolus Per protocol; to be given as a bolus over 60 ss minutes Route: IV; Rate: 1 bolus; Site: left forearm; 16:53 Follow up: Response: No adverse reaction; IV Status: Completed infusion; IV Intake: kc6 1000ml 16:26 Drug: Ondansetron IVP 4 mg IVP once; over 2 minutes Route: IVP; Site: left forearm; kc6 16:53 Follow up: Response: No adverse reaction kc6 16:26 Drug: Famotidine IVP 20 mg IVP once; dilute with 10 mL 0.9% NaCl; give over 2 minutes kc6 Route: IVP; Site: left forearm; 16:53 Follow up: Response: No adverse reaction kc6 16:26 Not Given (Patient Refused): morphineor iv 4 mg IVP once over 4 mins kc6 17:15 Drug: NS 0.9% IV 1000 ml IV at 1000 ml once; to be given as a bolus over 60 minutes kc6 Route: IV; Rate: 1000 ml; Site: left forearm; 20:19 Follow up: IV Status: Completed infusion; IV Intake: 1000ml kj2 20:19 Follow up: Response: No adverse reaction kj2 17:15 Drug: NS 0.9% IV 1000 ml IV at 125 ml/hr Per protocol; to be given as a bolus over 60 kc6 minutes Route: IV; Rate: 125 ml/hr; Site: left forearm; 18:50 Drug: metroNIDAZOLE IVPB 500 mg 100 ml IVPB once over 30 mins Volume: 100 ml; Route: kc6 IVPB; Infused Over: 30 mins; Site: left forearm; 19:20 Follow up: IV Status: Completed infusion; IV Intake: 100ml kj2 20:18 Follow up: Response: No adverse reaction kj2 20:16 Drug: Ciprofloxacin IVPB 400 mg 200 ml IVPB once over 60 mins Volume: 200 ml; Route: kj2 IVPB; Infused Over: 60 mins; Site: left forearm; 22:10 Follow up: IV Status: Completed infusion; IV Intake: 200ml kj2 22:11 Follow up: Response: No adverse reaction kj2 20:16 Drug: Promethazine IVP 25 mg IVP once Route: IVP; Site: left forearm; kj2 22:10 Follow up: Response: No adverse reaction kj2 22:10 Follow up: Response: No adverse reaction kj2 Medication: 01/29 15:41 VIS not applicable for this client. ap3 Intake: 01/28 16:53 IV: 1000ml; Total: 1000ml. kc6 19:20 IV: 100ml; Total: 1100ml. kj2 20:19 IV: 1000ml; Total: 2100ml. kj2 22:10 IV: 200ml; Total: 2300ml. kj2 Outcome: 16:55 ER care complete, transfer ordered by . cp 19:01 Decision to Hospitalize by Provider. cp 01/29 15:40 Admitted to ER Hold. Please see [facility] for further documentation. ap3 Condition: good Instructed on the need for admit, 17:31 Patient left the ED. ss Signatures: Dispatcher [employer] EDMS Eboni Powell Jorgensen, Jelena, Reg Reg mr Jeanna Quevedo, RN RN ss Jose A Alcantar PA PA cp Clari Sanders RN RN hb Jordan, Nathan nj Prokisch, Amanda, RN RN ap3 Shreya Glez RN RN kc6 Josefina Anderson Clarissa, RN RN cm10 Linda Cordova MD MD gb1 Mercy Alanis RN RN kj2 Corrections: (The following items were deleted from the chart) 01/28 13:47 13:46 Pulse 88bpm; Resp 16bpm; Pulse Ox 100% RA; Temp 98.3F; Pain 8/10, Adult; hb hb 13:48 13:46 BP 176 / 106; Pulse 88bpm; Resp 16bpm; Pulse Ox 100% RA; Temp 98.3F; Pain 8/10, hb Adult; hb
[2024-01-29 16:57] LABS: Blood Morphology Comment NOT SEEN (NOT SEEN); Platelet Estimate ADEQ; White Blood Cell Scan OK (OK)
[2024-01-29] MEDS ORDERED: NA CHLORIDE 0.9% 2,000 ML ONE (17:02)
[2024-01-29] MEDS ORDERED: CIPROFLOXACIN 400mg IV 400 MG/200 ML BAG IV ONE (18:40)
[2024-01-29] MEDS ORDERED: METRONIDAZOLE 500mg IVPB 500 MG/100 ML BAG IV ONE (18:40)
[2024-01-29] MEDS ORDERED: PROMETHAZINE INJ 25 MG/ML AMP ONE (20:06)
--- NOTE | 2024-01-29 21:37 | P.HP ---
Certification for Inpatient Patient admitted to: Inpatient With expected LOS: >2 Midnights Practitioner: I am a practitioner with admitting privileges, knowledge of patient current condition, hospital course, and medical plan of care. Services: Services provided to patient in accordance with Admission requirements found in Title 42 Section 412.3 of the Code of Federal Regulations Patient History Date of Service: 01/29/24 Reason for admission: abdominal pain History of Present Illness: 53-year-old male presents to the ER with complaints of abdominal pain since 3:00 this morning. Patient reports he has a complicated abdominal history and has had bowel obstruction in the past. He states that he had his first abdominal surgery at age [age] years old in [place]. Subsequently was diagnosed with bowel obstruction and 16 years old and had surgery. States he had repeat procedures in 2013 and 2018. Reports that he had a complicated procedure at [facility]. And has had dealt with recurrent bowel obstruction. He reports he had an episode of nausea and vomiting earlier today but since then he does not feel nauseous. Pain is described as significant but improved currently he does have pain in the right lower quadrant. He feels like he is passing some gas but no bowel stool. A transfer was initiated but beds were not available at [facility] Surgery at [facility] was contacted and agreeable to consult. PMH: HTN GERD SBO Allergies No Known Drug Allergies Allergy (Verified 01/24/15 21:56) Unknown Home Medications: Amoxicillin 1 tab PO TID 01/25/15 Cheratussin 10 ml PO BEDTIME 01/25/15 - Past Medical/Surgical History Diabetic: No -: SMALL BOWEL OBSTRUCTION -: HTN -: GERD -: RLQ ABD PAIN -: Appendectomy -: ABDOMINAL SURGERY Psychosocial/ Personal History: Lives with family - Social History Alcohol use: Yes CD- Drugs: No Caffeine use: No Review of Systems 10-point ROS is otherwise unremarkable Physical Examination - Physical Exam General: Alert, Oriented x3 Respiratory: Clear to auscultation bilaterally, Normal air movement Cardiovascular: Regular rate/rhythm, Normal S1 S2 Gastrointestinal: Other (distended, RLQ tenderness, few bowel sounds) Integumentary: No rashes Neurological: Normal speech - Studies Laboratory Data (last 24 hrs) 01/29/24 01/29/24 14:17 14:17 WBC 8.20 Hgb 13.8 Hct 43.1 Plt Count 304 Sodium 137 Potassium 3.4 L BUN 9 Creatinine 0.87 Glucose 140 H Total Bilirubin 0.7 AST 97 H ALT 50 Alkaline Phosphatase 64 Lipase 69 Assessment and Plan - Problems (Diagnosis) (1) Abdominal pain Current Visit: No Status: Acute (2) Bowel obstruction Onset Date: 01/26/15 Current Visit: No Status: Acute (3) Right lower quadrant abdominal pain Onset Date: 12/17/13 Current Visit: No Status: Acute - Plan 53-year-old male presents with complaints of right lower quadrant abdominal pain and nausea Bowel obstruction Abdominal pain Nausea and vomiting History of multiple abdominal surgeries Hypertension Plan: Will admit to [facility] with Keep n.p.o., IV fluids Surgery consulted CT scan done repeat axr As needed antiemetics Repeat labs Antibiotic started in the ER will continue for now per recommendation of surgery Consider transfer if patient does not have improvement Code: Full Discharge Plan: Home - Advance Directives Does patient have a Living Will: No Does patient have a Durable POA for Healthcare: No
[2024-01-29] MEDS ORDERED: ACETAMINOPHEN 325 MG TABLET PO PRN (21:45)
[2024-01-29] MEDS ORDERED: ONDANSETRON 4 MG/2 ML VIAL IV PRN (21:45)
[2024-01-29] MEDS: NA CHLORIDE 0.9% 1,000 ML IV SCH (22:00)
[2024-01-30 06:03] LABS: Absolute Eosinophils 0.1 K/uL (0-0.5); Absolute Lymphocytes (CBC) 1.6 K/uL (0.7-4.9); Absolute Monocytes 0.7 K/uL (0.1-1.3); Basophils % 0.3 % (0-1.3); Eosinophils % 1.1 % (0-4.4); Hematocrit 38.4 % (39.6-49.0); Hemoglobin 12.7 g/dL (13.6-17.9); Lymphocytes % 18.6 % (15.3-44.8); MCH 28.5 pg (27.0-35.0); MCV 86.3 fL (80-100); MPV 8.5 fL (7.6-11.3); Monocytes % 8.4 % (3.3-12.3); Neutrophils % 71.6 % (41.7-73.7); Nucleated Red Blood Cells % 0.1 % (0-0); Platelets 316 thou/uL (152-406); RBC Red Blood Cell Count 4.45 M/uL (4.33-5.43); Red Cell Distribution Width 13.8 % (12.1-15.2)
[2024-01-30 06:21] LABS: Albumin 3.4 g/dL (3.4-5.0); Albumin/Globulin Ratio 1.1 (1.1-1.8); Anion Gap 9.4 mEq/L (5.0-15.0); Bilirubin Total 0.8 mg/dL (0.2-1.0); Globulin 3.1 g/dL (2.3-3.5); Potassium 3.4 mEq/L (3.5-5.1); Protein, Total 6.5 g/dL (6.4-8.2)
--- NOTE | 2024-01-30 08:19 | RAD REPORT ---
EXAM: XR Abdomen 1 View (KUB) HISTORY: [facility] MAIN sbo COMPARISON: 11/06/[address] abdomen and pelvis 01/29/2024 FINDINGS: Single view of the abdomen shows short segments of small bowel dilation, most notably in th e left flank, measuring up to 3.7 cm in caliber. Relative paucity of gas in the small bowel otherwise which limits evaluation. No suspicious calcifications are seen. The bones are unremarkab le. IMPRESSION: Short segment of small bowel distention, difficult to correlate to the prior CT, but sugg est at least persistent partial obstruction. Continued imaging follow-up recommended.
[2024-01-30] MEDS ORDERED: METRONIDAZOLE 500mg IVPB 500 MG/100 ML BAG IV ONE (08:40)
[2024-01-30] MEDS ORDERED: ENOXAPARIN 40 MG/0.4 ML SQ ONE (08:40)
[2024-01-30] MEDS: METRONIDAZOLE 500mg IVPB 500 MG/100 ML BAG IV SCH (08:48)
[2024-01-30] MEDS: ENOXAPARIN 40 MG/0.4 ML SQ SCH (08:48)
--- NOTE | 2024-01-30 09:04 | P.PN ---
Date of Service: 01/30/24 subjective Admitted with abdominal pain, small bowel obstruction, n.p.o. except for meds Review of Systems 10-point ROS is otherwise unremarkable Physical Examination - Physical Exam vital signs reviewed General: Alert, Oriented x3 HEENT: PERRLA Neck: Supple, 2+ carotid pulse no bruit, JVD not distended Respiratory: Clear to auscultation bilaterally, Normal air movement Cardiovascular: Regular rate/rhythm, Normal S1 S2 Gastrointestinal: Other (distended, RLQ tenderness, hypoactive bowel sounds) Musculoskeletal: Normal strength, Neurological: Normal speech Assessment and Plan - Problems (Diagnosis) (1) Abdominal pain with nausea vomiting Current Visit: No Status: Acute (2) Bowel obstruction Onset Date: 01/26/15 Current Visit: No Status: Acute (3) Right lower quadrant abdominal Onset Date: 12/17/13 Current Visit: No Status: Acute (4) history of abdominal surgeries Onset Date: 12/17/13 Current Visit: No Status: Acute Plan 53-year-old male presents with complaints of right lower quadrant abdominal pain and nausea Plan Admit to [facility] repeat KUB, improved, Will admit to [facility] with Keep n.p.o., IV fluids Surgery consulted CT scan done repeat axr As needed antiemetics Repeat labs Antibiotic started in the ER will continue for now per recommendation of surgery Consider transfer if patient does not have improvement Code: Full Discharge Plan: Home - Advance Directives Does patient have a Living Will: No Does patient have a Durable POA for Healthcare: No Time with patient 25-minute <Oma Abdul - Last Filed: 01/31/24 20:11> Chart has been reviewed. Events of the last 24 hours have been noted. Case discussed with JASMINA. I performed a substantial part of the MDM during this patient's care today. I personally made or approved the documented management plan and acknowledge its risk of complications. I agree with the findings and documentation provided in the JASMINA's notes <Nae Alexandre - Last Filed: 02/06/24 02:32>
[2024-01-30] MEDS: KCL 20 MEQ/100 mL IVPB 20 MEQ/100 ML BAG IV SCH (09:30)
[2024-01-30] MEDS ORDERED: KCL 20 MEQ/100 mL IVPB 100 ML IV ONE (10:57)
[2024-01-30] MEDS ORDERED: NA CHLORIDE 0.9% 1,000 ML ONE (12:30)
[2024-01-30 17:47] VITALS: O2SAT 97
[2024-01-30] MEDS: AMLODIPINE 5 MG TAB PO SCH (21:00)
[2024-01-30 23:09] LABS: Specific Gravity 1.009 (1.005-1.030); Urine Bilirubin NEGATIVE (Negative); Urine Blood Negative (Negative); Urine Clarity Clear (Clear); Urine Color Light-Yellow (Yellow); Urine Glucose NEGATIVE (Negative); Urine Ketones 1+ (Negative); Urine Microscopic Reflex YN NO UMIC; Urine Nitrite NEGATIVE (Negative); Urine Protein NEGATIVE (Negative); Urine Urobilinogen Normal (Normal); Urine pH 6.5 (5.0-7.0)
[2024-01-30] MEDS: METOCLOPRAMIDE 10 MG/2mL INJ IV PRN (23:43)
[2024-01-31 00:22] VITALS: BMI 25.8
[2024-01-31] MEDS: AMLODIPINE 5 MG TAB PO SCH ×2 (00:42→09:00)
[2024-01-31 04:48] LABS: Hematocrit 34.5 % (39.6-49.0); Hemoglobin 11.7 g/dL (13.6-17.9); MCHC 33.8 g/dL (32.0-36.0); MCV 85.6 fL (80-100); MPV 8.6 fL (7.6-11.3); Platelets 260 thou/uL (152-406); RBC Red Blood Cell Count 4.03 M/uL (4.33-5.43); Red Cell Distribution Width 13.7 % (12.1-15.2)
[2024-01-31 04:53] LABS: Albumin 3.1 g/dL (3.4-5.0); Anion Gap 8.4 mEq/L (5.0-15.0); Phosphorus 2.4 mg/dL (2.5-4.9); Potassium 3.4 mEq/L (3.5-5.1)
--- NOTE | 2024-01-31 07:04 | RAD REPORT ---
EXAM: AP view(s) of the abdomen Abdomen 1 View (KUB) HISTORY: sbo COMPARISON: 01/30/2024 FINDINGS: Small bowel dilatation in the left hemiabdomen no longer well appreciated. Some gas is present withi n the colon and distal small bowel.. No suspicious calcifications are seen. No acute osseous abnormality. Other: n/a IMPRESSION: Increased colonic gas likely reflecting resolving small bowel obstruction. Correlate clin ically.
[2024-01-31] MEDS: MINERAL OIL 30 ML UCUP PO ONE (08:32)
[2024-01-31] MEDS: PANTOPRAZOLE 40MG TABLET PO SCH (10:13)
[2024-01-31] MEDS: POTASSIUM 25 MEQ EFFERV TAB PO ONE (10:14)
--- NOTE | 2024-01-31 20:19 | P.PN ---
Subjective Date of Service: 01/31/24 Chief Complaint: abdominal pain Abdominal pain improving, will advance diet <Oma Abdul - Last Filed: 01/31/24 20:32> Date of Service: 01/31/24 <Nae Alexandre - Last Filed: 02/06/24 02:33> Review of Systems 10-point ROS is otherwise unremarkable <OliverOma manzo - Last Filed: 01/31/24 20:32> Physical Examination - Vital Signs Temperature: 97.7 F Blood Pressure: 133/62 Pulse: 62 Respirations: 18 Pulse Ox (%): 100 - Physical Exam General: Alert, In no apparent distress, Oriented x3 HEENT: Atraumatic, Normocephalic Neck: Supple, 2+ carotid pulse no bruit, JVD not distended Respiratory: Clear to auscultation bilaterally, Normal air movement Cardiovascular: No edema, Normal pulses, Regular rate/rhythm, Normal S1 S2 Capillary refill: <2 Seconds Gastrointestinal: Normal bowel sounds, Soft and benign Musculoskeletal: No clubbing, No swelling Integumentary: No rashes, No breakdown Neurological: Normal speech, Normal strength at 5/5 x4 extr, Cranial nerves 3-12 intact <Oma Abdul - Last Filed: 01/31/24 20:32> Assessment And Plan - Plan Assessment and Plan - Problems (Diagnosis) (1) Abdominal pain Current Visit: No Status: Acute (2) Bowel obstruction Onset Date: 01/26/15 Current Visit: No Status: Acute (3) Right lower quadrant abdominal pain Onset Date: 12/17/13 Current Visit: No Status: Acute - Plan 53-year-old male presents with complaints of right lower quadrant abdominal pain and nausea Bowel obstruction Abdominal pain Nausea and vomiting History of multiple abdominal surgeries Hypertension Assessment plan Admit to [facility] Surgery consulted for eval for small bowel obstruction N.p.o., advance diet with positive bowel sounds, KUB improved As needed analgesics, antiemetics, IV fluids, Full code DVT SCDs Diet advance advance with bowel sounds Code: Full Discharge Plan: Home - Advance Directives Does patient have a Living Will: No Does patient have a Durable POA for Healthcare: No Time with patient patient 25 minutes Discharge Plan: Home - Code Status/Comfort Care Code Status: Full Code Critical Care: No Time Spent Managing PTS Care (In Minutes): 25 <Oma Abdul - Last Filed: 01/31/24 20:32> Date of Service: 01/31/24 Chart has been reviewed. Events of the last 24 hours have been noted. Case discussed with JASMINA. I performed a substantial part of the MDM during this patient's care today. I personally made or approved the documented management plan and acknowledge its risk of complications. I agree with the findings and documentation provided in the JASMINA's notes <Nae Alexandre - Last Filed: 02/06/24 02:33>
--- NOTE | 2024-01-31 20:25 | P.DS ---
Admission Date: 01/29/24 Discharge Date: 02/01/24 Reason for Admission: abdominal pain Brief History of Present Illness: 53-year-old male presents to the ER with complaints of abdominal pain since 3:00 this morning. Patient reports he has a complicated abdominal history and has had bowel obstruction in the past. He states that he had his first abdominal surgery at age [age] years old in [place]. Subsequently was diagnosed with bowel obstruction and 16 years old and had surgery. States he had repeat procedures in 2014 and 2018. Reports that he had a complicated procedure at [facility]. And has had dealt with recurrent bowel obstruction. He reports he had an episode of nausea and vomiting earlier today but since then he does not feel nauseous. Pain is described as significant but improved currently he does have pain in the right lower quadrant. He feels like he is passing some gas but no bowel stool. A transfer was initiated but beds were not available at [facility] Surgery at [facility] was contacted and agreeable to consult. General: Alert, Oriented x3 HEENT: PERRLA Neck: Supple, 2+ carotid pulse no bruit, JVD not distended Respiratory: Clear to auscultation bilaterally, Normal air movement Cardiovascular: Regular rate/rhythm, Normal S1 S2 Gastrointestinal: Other (distended, RLQ tenderness, hypoactive bowel sounds) Musculoskeletal: Normal strength, Neurological: Normal speech Hospital Course: 53-year-old male presents to the ER with complaints of abdominal pain since 3:00 this morning. Patient reports he has a complicated abdominal history and has had bowel obstruction in the past. Abdominal CT shows Findings of small bowel obstruction with transition point in the right flank, again closely related to an anastomotic small bowel suture line. The location of the transition point is fairly similar to the finding on the most recent abdominal CT reviewed for comparison. Abdominal pain Resolved with IV fluids, as needed analgesics, as needed antiemetics. Repeat KUB IMPRESSION: Increased colonic gas likely reflecting resolving small bowel obstruction. Correlate clinically. Plan to advance diet, tolerating diet, stable to discharge, follow-up with surgery after discharge Assessment Small bowel obstruction improved with bowel rest, tolerating diet-follow up with surgery after discharge Abdominal pain nausea vomiting resolving KUB IMPRESSION: Increased colonic gas likely reflecting resolving small bowel obstruction. Correlate clinically. CT of the abdomen Findings of small bowel obstruction with transition point in the right flank, again closely related to an anastomotic small bowel suture line. The location of the transition point is fairly similar to the finding on the most recent abdominal CT reviewed for comparison.Other benign incidental findings as above Continue home medicines as previously prescribed GOAL: Clear understanding of disease process INSTRUCTIONS: Physician Discharge Instructions: -Follow-up with surgery after discharge call office for appt -Follow-up with PCP in 1 to 2 weeks -Please call Dr. Alexandre at [phone] if any questions regarding hospital stay -Please call nursing station at [phone] if any nursing or medication questions -Return to the emergency room if symptoms worsen Diet: ADA, low sodium Activity: Fall precautions <Oma Abdul - Last Filed: 02/01/24 17:16> Admission Date: 01/29/24 Discharge Date: 02/01/24 Hospital Course: Chart has been reviewed. Events of the last 24 hours have been noted. Case discussed with JASMINA. I performed a substantial part of the MDM during this patient's care today. I personally made or approved the documented management plan and acknowledge its risk of complications. I agree with the findings and documentation provided in the JASMINA's notes <Nae Alexandre - Last Filed: 02/06/24 02:33> Disposition: ROUTINE DISCHARGE Discharge Condition: GOOD Vital Signs/Physical Exam: Temp Pulse Resp BP Pulse Ox 97.7 F 62 18 133/62 100 01/31/24 20:19 01/31/24 20:19 01/31/24 20:19 01/31/24 20:19 01/31/24 20:19 Laboratory Data at Discharge: WBC 5.50 thou/uL (4.3-10.9) 01/31/24 04:20 Hgb 11.7 g/dL (13.6-17.9) L 01/31/24 04:20 Hct 34.5 % (39.6-49.0) L 01/31/24 04:20 Plt Count 260 thou/uL (152-406) 01/31/24 04:20 Sodium 138 mEq/L (136-145) 01/31/24 04:20 Potassium Cancelled 01/31/24 09:56 BUN 5 mg/dL (7-18) L 01/31/24 04:20 Creatinine 0.71 mg/dL (0.70-1.30) 01/31/24 04:20 Glucose 89 mg/dL (74-106) 01/31/24 04:20 Phosphorus 2.4 mg/dL (2.5-4.9) L 01/31/24 04:20 Total Bilirubin 0.8 mg/dL (0.2-1.0) 01/30/24 05:44 AST 64 U/L (15-37) H 01/30/24 05:44 ALT 41 U/L (16-61) 01/30/24 05:44 Alkaline Phosphatase 52 U/L (45-117) 01/30/24 05:44 Lipase 69 U/L (13-75) 01/29/24 14:17 <Oma Abdul - Last Filed: 02/01/24 17:16> Vital Signs/Physical Exam: Temp Pulse Resp BP Pulse Ox 98 F 70 16 132/32 L 98 02/01/24 04:00 02/01/24 06:20 02/01/24 04:00 02/01/24 06:20 02/01/24 04:00 General: Alert, In no apparent distress, Oriented x3 Laboratory Data at Discharge: WBC 5.50 thou/uL (4.3-10.9) 02/01/24 05:18 Hgb 12.5 g/dL (13.6-17.9) L 02/01/24 05:18 Hct 37.3 % (39.6-49.0) L 02/01/24 05:18 Plt Count 282 thou/uL (152-406) 02/01/24 05:18 Sodium 134 mEq/L (136-145) L 02/01/24 05:18 Potassium 3.3 mEq/L (3.5-5.1) L 02/01/24 05:18 BUN 7 mg/dL (7-18) 02/01/24 05:18 Creatinine 0.65 mg/dL (0.70-1.30) L 02/01/24 05:18 Glucose 93 mg/dL (74-106) 02/01/24 05:18 Phosphorus 3.0 mg/dL (2.5-4.9) 02/01/24 05:18 Total Bilirubin 0.8 mg/dL (0.2-1.0) 01/30/24 05:44 AST 64 U/L (15-37) H 01/30/24 05:44 ALT 41 U/L (16-61) 01/30/24 05:44 Alkaline Phosphatase 52 U/L (45-117) 01/30/24 05:44 Lipase 69 U/L (13-75) 01/29/24 14:17 <Nae Alexandre - Last Filed: 02/06/24 02:33> Diet: Admit syst Time spent managing pt's care (in minutes): 45 <Oma Abdul - Last Filed: 02/01/24 17:16> Time spent managing pt's care (in minutes): 35 <Nae Alexandre - Last Filed: 02/06/24 02:33> Home Medications: Amlodipine [Norvasc] 5 mg PO DAILY 01/30/24 Omeprazole [Prilosec] 40 mg PO DAILY 30 Days #30 cap 02/01/24 New Medications: Omeprazole [Prilosec] 40 mg PO DAILY 30 Days #30 cap Physician Discharge Instructions: 53-year-old male presents to the ER with complaints of abdominal pain since 3:00 this morning. Patient reports he has a complicated abdominal history and has had bowel obstruction in the past. Abdominal CT shows Findings of small bowel obstruction with transition point in the right flank, again closely related to an anastomotic small bowel suture line. The location of the transition point is fairly similar to the finding on the most recent abdominal CT reviewed for comparison. Abdominal pain Resolved with IV fluids, as needed analgesics, as needed antiemetics. Repeat KUB IMPRESSION: Increased colonic gas likely reflecting resolving small bowel obstruction. Correlate clinically. Plan to advance diet, tolerating diet, stable to discharge, follow-up with surgery after discharge Assessment Small bowel obstruction improved with bowel rest, tolerating diet-surgery after Abdominal pain nausea vomiting resolving KUB IMPRESSION: Increased colonic gas likely reflecting resolving small bowel obstruction. Correlate clinically. CT of the abdomen Findings of small bowel obstruction with transition point in the right flank, again closely related to an anastomotic small bowel suture line. The location of the transition point is fairly similar to the finding on the most recent abdominal CT reviewed for comparison.Other benign incidental findings as above Continue home medicines as previously prescribed GOAL: Clear understanding of disease process INSTRUCTIONS: Physician Discharge Instructions: -Follow-up with surgery after discharge -Follow-up with PCP in 1 to 2 weeks -Please call Dr. Alexandre at [phone] if any questions regarding hospital stay -Please call nursing station at [phone] if any nursing or medication questions -Return to the emergency room if symptoms worsen Diet: ADA, low sodium Activity: Fall precautions Followup: Armen Carlin MD [ACTIVE - CAN ADMIT] - 1-2 Weeks NONE,NONE [Primary Care Provider] -
[2024-02-01 05:55] VITALS: TEMP 98
[2024-02-01 06:06] LABS: Hematocrit 37.3 % (39.6-49.0); Hemoglobin 12.5 g/dL (13.6-17.9); MCH 28.6 pg (27.0-35.0); MCHC 33.5 g/dL (32.0-36.0); MCV 85.3 fL (80-100); MPV 8.6 fL (7.6-11.3); Platelets 282 thou/uL (152-406); RBC Red Blood Cell Count 4.37 M/uL (4.33-5.43); Red Cell Distribution Width 13.8 % (12.1-15.2)
[2024-02-01 06:22] LABS: Albumin 3.2 g/dL (3.4-5.0); Anion Gap 9.3 mEq/L (5.0-15.0); Potassium 3.3 mEq/L (3.5-5.1)
[2024-02-01 06:36] VITALS: BP 132/32
== END 2024-02-01 11:57 | disposition home or self-care (01) | DRG 390 ==
LOC: ER 12:41 → ERHOLD 21:59 → 2ND 01-30 17:06
PROVIDERS: ADMIT Internal Medicine; ATTEND Hospitalist
DX: K56.609 Unspecified intestinal obstruction, unspecified as to partial versus complete obstruction (principal); I10 Essential (primary) hypertension; K21.9 Gastro-esophageal reflux disease without esophagitis; Z90.49 Acquired absence of other specified parts of digestive tract; Z79.899 Other long term (current) drug therapy
CPT/HCPCS: 36415; 74018; 74177; 80053; 80069; 81001; 81003; 83690; 85025; 85027; 96361; 96365; 96367; 96375; 99285; J0744; J1650; J2405; J2550; J2765; J3480; J7030; Q9967